=== PATIENT | female | born 1960 | race Caucasian/White ===

== ENCOUNTER 2017-05-27 16:36 | Inpatient (IN) | payer MEDICARE, OTHER ==
[~2017-05-27] VITALS: Ht 167.6 cm; Wt 78.0 kg
[2017-05-27 16:58] VITALS: BP 125/58; PULSE 92; RESP 16; TEMP 98.1; O2SAT 98
[2017-05-27] MEDS ORDERED: PIPERACIL-TAZO 3.375 GM PREMIX 50 ML IV ONE (19:00)
[2017-05-27] MEDS ORDERED: ONDANSETRON HCL 4 MG/2 ML VIAL IV PUSH ONE (19:00)
[2017-05-27] MEDS ORDERED: MORPHINE SULFATE 4 MG/ML INJ IV PUSH ONE (19:00)
[2017-05-27] MEDS ORDERED: VANCOMYCIN INJ 1,000 MG in SODIUM CHLOR 0.9% 250 ML INJ 250 ML IV ONE (19:00)
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
[2017-05-27] MEDS ORDERED: OXYC1TAB63 PO (19:21)
[2017-05-27] MEDS ORDERED: MINO100 PO (19:21)
[2017-05-27] MEDS ORDERED: REME15TA PO (19:21)
[2017-05-27] MEDS ORDERED: INSU1.2I SQ (19:21)
[2017-05-27] MEDS ORDERED: ATOR10TA15 PO (19:21)
[2017-05-27] MEDS ORDERED: SULF1TAB23 PO (19:21)
[2017-05-27] MEDS ORDERED: VIST50CA PO (19:21)
[2017-05-27] MEDS ORDERED: GABA800T PO (19:21)
[2017-05-27] MEDS ORDERED: HUMALOG SQ (19:21)
[2017-05-27] MEDS ORDERED: ATEN25TA PO (19:21)
[2017-05-27 19:22] VITALS: RESP 16; O2SAT 97
--- NOTE | 2017-05-27 19:23 | RADRPT ---
EXAM DATE/TIME: 05/27/2017 19:10 [facility] COMPARISON: No previous studies available for comparison. INDICATIONS : Left heel pain. Possible infection after recent foot surgery. MEDICAL HISTORY : Diabetes mellitus type II. SURGICAL HISTORY : Left foot, partial first digit amputation. ENCOUNTER: Initial ACUITY: 2 weeks PAIN SCORE: 8/10 LOCATION: Left foot. FINDINGS: There are no prior imaging studies. This fusion of the phalanges of the 1st digit. Medially, at the MTP joint, there is a bony fragment irregular margins which measures 6 mm in size, suggestive of a d isplaced fracture. There is irregularity of the cortex of the lateral metaphysis of the 2nd digit pr oximal phalanx without fracture lucency. The alignment of the osseous structures of the forefoot is maintained. Soft tissue discontinuities are seen about the calcaneus and about the plantar forefoot. No radiopaq ue foreign bodies seen. No focal bony destruction and no evidence of periosteal reaction. There is also moderate soft tissue swelling about the dorsal aspect of the forefoot. CONCLUSION: 1. Soft tissue swelling dorsal forefoot and irregularities of the cutaneous tissues adjacent to the c alcaneus and plantar forefoot. 2. Probable metaphyseal fracture of the 1st digit proximal phalanx. Pablo Chopra MD on May 27, 2017 at 19:19 Board Certified Radiologist. This report was verified electronically.
[2017-05-27 20:17] VITALS: BP 117/58; PULSE 88; RESP 20; O2SAT 95
[2017-05-27 20:32] LABS: AUTOMATED NEUTROPHIL # 5.1 TH/MM3 (1.8-7.7); BASOPHIL # 0.1 TH/MM3 (0-0.2); BASOPHIL % 0.9 % (0.0-2.0); EOSINOPHIL # 0.3 TH/MM3 (0-0.4); EOSINOPHIL % 2.6 % (0.0-4.0); HEMATOCRIT 38.8 % (35.0-46.0); HEMOGLOBIN 12.9 GM/DL (11.6-15.3); LYMPH % 41.6 % (9.0-44.0); LYMPHOCYTE # 4.5 TH/MM3 (1.0-4.8); MEAN CELL VOLUME 79.1 FL (80.0-100.0); MEAN CORPUSCULAR HEMOGLOBIN 26.4 PG (27.0-34.0); MEAN CORPUSCULAR HGB CONC 33.4 % (32.0-36.0); MEAN PLATELET VOLUME 8.2 FL (7.0-11.0); MONO % 7.4 % (0.0-8.0); MONOCYTE # 0.8 TH/MM3 (0-0.9); NEUT % 47.5 % (16.0-70.0); PLATELET COUNT 506 TH/MM3 (150-450); RED CELL DISTRIBUTION WIDTH 14.5 % (11.6-17.2); WHITE BLOOD COUNT 10.8 TH/MM3 (4.0-11.0)
[2017-05-27 20:37] LABS: PROTHROMBIN TIME - PATIENT 10.2 SEC (9.8-11.6)
[2017-05-27 20:49] LABS: ALBUMIN 3.6 GM/DL (3.4-5.0); AST (GOT) 13 U/L (15-37); BICARBONATE 25.7 MEQ/L (21.0-32.0); BLOOD UREA NITROGEN 27 MG/DL (7-18); CHLORIDE 100 MEQ/L (98-107); CREATININE 1.28 MG/DL (0.50-1.00); GLOMERULAR FILTRATION RATE 43 ML/MIN (>89); GLUCOSE,RANDOM 86 MG/DL (74-106); SODIUM (NA) 135 MEQ/L (136-145)
[2017-05-27 20:50] LABS: ALT (GPT) 16 U/L (10-53)
[2017-05-27 20:57] LABS: ALKALINE PHOSPHATASE 111 U/L (45-117); TOTAL BILIRUBIN ADULT 0.2 MG/DL (0.2-1.0); TOTAL PROTEIN 9.2 GM/DL (6.4-8.2)
[2017-05-27] MEDS ORDERED: MORPHINE SULFATE 2 MG/ML INJ IV PUSH PRN (21:45)
[2017-05-27] MEDS ORDERED: SODIUM CHLORIDE 0.9% FLUSH 10 ML FLUSH IV FLUSH PRN (21:45)
[2017-05-27] MEDS ORDERED: RESP: ALBUTEROL 2.5 MG/IPRATROPIUM 0.5 MG NEB (PRN) NEB (21:45)
[2017-05-27] MEDS ORDERED: DEXTROSE 50% IN WATER 50 ML VIAL(D50) IV PUSH PRN (21:45)
[2017-05-27] MEDS ORDERED: GLUCAGON 1 MG/ML VIAL OTHER PRN (21:45)
[2017-05-27] MEDS ORDERED: ONDANSETRON HCL 4 MG/2 ML VIAL IVP PRN (21:45)
[2017-05-27] MEDS ORDERED: ACETAMINOPHEN 325 MG TAB PO PRN (21:45)
[2017-05-27] MEDS ORDERED: NALOXONE HCL 0.4 MG/ML AMP IV PUSH PRN (21:45)
[2017-05-27] MEDS ORDERED: POTASSIUM CHLORIDE 20 MEQ CONTROLLED RELEASE TAB PO ONE (22:15)
--- NOTE | 2017-05-27 22:24 | HHI.HP ---
[facility] Tavo Sotomayor MD Admission Diagnosis diabetic left foot ulcer, cellulitis left foot Diagnoses: Travel History International Travel<30 Days: No Contact w/Intl Traveler <30 Da: No Traveled to Known Affected Are: No History of Present Illness 56-year-old female with past medical history significant for diabetes mellitus, hyperlipidemia, COPD and peripheral arterial disease presents to the emergency department for evaluation of worsening left heel and foot erythema and swelling. The patient was recently treated at [facility] where she was admitted from 05/20-05/23 and treated for osteomyelitis. She was seen by infectious disease who had her on vancomycin and ciprofloxacin and she was discharged on Bactrim and minocycline. The patient reports she has been compliant with her dressing changes and antibiotics. She reports that for the past 2 days she has noticed increased redness and swelling with foul drainage from her left heel. She states that she has had subjective chills for the past 2 days. She has associated diarrhea. Denies chest pain or shortness of breath. No nausea/vomiting. Of note the patient was originally treated in [place] where an I&D was performed however on 05/19 she left AGAINST MEDICAL ADVICE. Review of Systems Except as stated in HPI: all other systems reviewed are Neg Past Family Social History Past Medical History Peripheral arterial disease Diabetes mellitus Hypertension COPD Past Surgical History I&D of left heel Cholecystectomy Small bowel resection Bilateral lower extremity stent placement Allergies: Coded Allergies: lisinopril (Verified Allergy, Intermediate, Cough, 05/27/17) phenytoin (Verified Allergy, Unknown, 05/27/17) pt states unknown Physical Exam Vital Signs Vital Signs Date Time Temp Pulse Resp B/P (MAP) Pulse Ox O2 Delivery O2 Flow Rate FiO2 05/27/17 20:18 95 Room Air 05/27/17 20:17 88 20 117/58 (77) 95 Room Air 05/27/17 19:22 16 97 05/27/17 16:58 98.1 92 16 125/58 (80) 98 Physical Exam GENERAL: female lying in bed SKIN: 5 x 2 cm ulcer to the posterior left heel with surrounding swelling and erythema. Draining foul-smelling purulent drainage. HEAD: Atraumatic. Normocephalic. No temporal or scalp tenderness. EYES: Pupils equal round and reactive. Extraocular motions intact. No scleral icterus. No injection or drainage. ENT: Nose without bleeding, purulent drainage or septal hematoma. Throat without erythema, tonsillar hypertrophy or exudate. Uvula midline. Airway patent. NECK: Trachea midline. No JVD or lymphadenopathy. Supple, nontender, no meningeal signs. CARDIOVASCULAR: Regular rate and rhythm without murmurs, gallops, or rubs. RESPIRATORY: Clear to auscultation. Breath sounds equal bilaterally. No wheezes , rales, or rhonchi. GASTROINTESTINAL: Abdomen soft, non-tender, nondistended. No hepato-splenomegaly , or palpable masses. No guarding. MUSCULOSKELETAL: No calf tenderness. NEUROLOGICAL: Awake and alert. Cranial nerves II through XII intact. Motor and sensory grossly within normal limits. 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 Laboratory Laboratory Tests Test 05/27/17 19:10 05/27/17 20:10 White Blood Count 10.8 Red Blood Count 4.90 Hemoglobin 12.9 Hematocrit 38.8 Mean Corpuscular Volume 79.1 Mean Corpuscular Hemoglobin 26.4 Mean Corpuscular Hemoglobin Concent 33.4 Red Cell Distribution Width 14.5 Platelet Count 506 Mean Platelet Volume 8.2 Neutrophils (%) (Auto) 47.5 Lymphocytes (%) (Auto) 41.6 Monocytes (%) (Auto) 7.4 Eosinophils (%) (Auto) 2.6 Basophils (%) (Auto) 0.9 Neutrophils # (Auto) 5.1 Lymphocytes # (Auto) 4.5 Monocytes # (Auto) 0.8 Eosinophils # (Auto) 0.3 Basophils # (Auto) 0.1 CBC Comment DIFF FINAL Differential Comment Erythrocyte Sedimentation Rate 48 Prothrombin Time 10.2 Prothromb Time International Ratio 1.0 Activated Partial Thromboplast Time 24.0 Blood Urea Nitrogen 27 Creatinine 1.28 Random Glucose 86 Total Protein 9.2 Albumin 3.6 Calcium Level 9.0 Alkaline Phosphatase 111 Aspartate Amino Transf (AST/SGOT) 13 Alanine Aminotransferase (ALT/SGPT) 16 Total Bilirubin 0.2 Sodium Level 135 Potassium Level 3.3 Chloride Level 100 Carbon Dioxide Level 25.7 Anion Gap 9 Estimat Glomerular Filtration Rate 43 C-Reactive Protein 1.70 Lactic Acid Level 1.8 Date/Time Source Procedure Growth Status 05/27/17 19:30 Blood Peripheral Aerobic Blood Culture Pending Received 05/27/17 19:30 Blood Peripheral Anaerobic Blood Culture Pending Received 05/27/17 20:20 Wound Foot Gram Stain Pending Received 05/27/17 20:20 Wound Foot Wound Culture Pending Received Result Diagram: 05/27/17190905/27/171909 Caprini VTE Risk Assessment Caprini VTE Risk Assessment: No/Low Risk (score <= 1) Caprini Risk Assessment Model Point Value = 1 Point Value = 2 Point Value = 3 Point Value = 5 Age 41-60 Minor surgery BMI > 25 kg/m2 Swollen legs Varicose veins or History of unexplained or recurrent spontaneous Oral contraceptives or hormone replacement Sepsis (< 1 month) Serious lung disease, including pneumonia (< 1 month) Abnormal pulmonary function Acute myocardial infarction Congestive heart failure (< 1 month) History of inflammatory bowel disease Medical patient at bed rest Age 61-74 Arthroscopic surgery Major open surgery (> 45 min) Laparoscopic surgery (> 45 min) Malignancy Confined to bed (> 72 hours) Immobilizing plaster cast Central venous access Age >= 75 History of VTE Family history of VTE Factor V Leiden Prothrombin [id number] Lupus anticoagulant Anticardiolipin antibodies Elevated serum homocysteine Heparin-induced thrombocytopenia Other congenital or acquired thrombophilia Stroke (< 1 month) Elective arthroplasty Hip, pelvis, or leg fracture Acute spinal cord injury (< 1 month) Prophylaxis Regimen Total Risk Factor Score Risk Level Prophylaxis Regimen 0-1 Low Early ambulation 2 Moderate Order ONE of the following: *Sequential Compression Device (SCD) *Heparin 5000 units SQ BID 3-4 Higher Order ONE of the following medications: *Heparin 5000 units SQ TID *Enoxaparin/Lovenox 40 mg SQ daily (WT < 150 kg, CrCl > 30 mL/min) *Enoxaparin/Lovenox 30 mg SQ daily (WT < 150 kg, CrCl > 10-29 mL/min) *Enoxaparin/Lovenox 30 mg SQ BID (WT < 150 kg, CrCl > 30 mL/min) AND/OR *Sequential Compression Device (SCD) 5 or more Highest Order ONE of the following medications: *Heparin 5000 units SQ TID (Preferred with Epidurals) *Enoxaparin/Lovenox 40 mg SQ daily (WT < 150 kg, CrCl > 30 mL/min) *Enoxaparin/Lovenox 30 mg SQ daily (WT < 150 kg, CrCl > 10-29 mL/min) *Enoxaparin/Lovenox 30 mg SQ BID (WT < 150 kg, CrCl > 30 mL/min) AND *Sequential Compression Device (SCD) Assessment and Plan Assessment and Plan Assessment/plan: 1. Osteomyelitis Patient with known diagnosis of osteomyelitis, recently treated at [facility], discharged with Bactrim and minocycline Clinically worsened despite compliance with antibiotics ESR elevated Foot x-ray shows soft tissue swelling and irregularities of the cutaneous tissue adjacent to the calcaneus and plantar forefoot with a probable metaphyseal fracture of the first digit of the proximal phalanx Vancomycin/Zosyn Wound culture pending Blood cultures pending Infectious disease consulted, appreciate recommendations Podiatry consulted, appreciate recommendations 2. Diabetes mellitus Holding home insulin as patient nothing by mouth Sliding scale insulin Monitor blood glucose 3. COPD/hyperlipidemia/hypertension DuoNeb's Continue home statin Continue home atenolol FEN NPO Electrolytes: Status post by mouth potassium, repeat BMP in am Heparin NS at 100 cc/hr Lanie Adorno MD May 27, 2017 22:24
[2017-05-27] MEDS ORDERED: Vancomycin Consult Pharmacy 1 EA OTHER SCH (22:30)
[2017-05-27] MEDS: HEPARIN SODIUM - SQ 10,000 UNITS/ML VIAL SQ SCH (23:01)
[2017-05-27] MEDS: SODIUM CHLOR 0.9% 1000 ML INJ 1,000 ML IV SCH (23:02)
[2017-05-27 23:03] VITALS: BP 143/69; PULSE 86; RESP 16; TEMP 97; O2SAT 95
[2017-05-28 00:41] VITALS: BP 108/56; PULSE 89; RESP 16; TEMP 98.5; O2SAT 88
[2017-05-28] MEDS: PIPERACIL-TAZO 3.375 GM PREMIX 50 ML IV SCH ×2 (02:08→08:57)
[2017-05-28 04:39] VITALS: BP 121/60; PULSE 82; RESP 17; TEMP 98; O2SAT 92
[2017-05-28] MEDS: HEPARIN SODIUM - SQ 10,000 UNITS/ML VIAL SQ SCH (06:18)
[2017-05-28] MEDS ORDERED: INSULIN ASPART SUPPLEMENTAL SCALE SQ SCH (08:00)
[2017-05-28 08:17] VITALS: BP 120/58; PULSE 83; RESP 20; TEMP 98.4; O2SAT 92
[2017-05-28] MEDS: SODIUM CHLOR 0.9% 1000 ML INJ 1,000 ML IV SCH (08:57)
[2017-05-28] MEDS ORDERED: MINOCYCLINE HCL 100 MG CAP PO SCH (09:00)
[2017-05-28] MEDS ORDERED: INSULIN GLARGINE SQ SCH (09:00)
[2017-05-28] MEDS ORDERED: oxyCODONE/ACETAMINOPHEN 10 MG/325 MG TAB PO PRN (09:00)
[2017-05-28] MEDS ORDERED: INSULIN GLARGINE 24 UNIT SQ SCH (09:00)
[2017-05-28] MEDS ORDERED: oxyCODONE/ACETAMINOPHEN 5 MG/325 MG TAB PO PRN (09:00)
[2017-05-28] MEDS ORDERED: SULFAMETHOXAZOLE-TRIMETHOPRIM DS 800-160 MG TAB PO SCH (09:00)
[2017-05-28] MEDS ORDERED: SODIUM CHLORIDE 0.9% FLUSH 10 ML FLUSH IV FLUSH SCH (09:00)
[2017-05-28] MEDS ORDERED: GABAPENTIN 300 MG CAP PO SCH (09:00)
[2017-05-28] MEDS ORDERED: ATENOLOL 25 MG TAB PO SCH (09:00)
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
--- NOTE | 2017-05-28 13:55 | PD.AMA ---
Against Medical Advice Note AMA Statement Patient Radha Palma has decided to leave the hospital against medical advice. This patient has the capacity to refuse care and understands the risks of leaving, including permanent disability and/or , and has had an opportunity to ask questions about her condition. The patient has been informed that she may return for care at any time, and follow up has been arranged/ advised. Bhavesh Strong MD May 28, 2017 13:55
[2017-05-28] MEDS ORDERED: VANCOMYCIN INJ 1,250 MG in SODIUM CHLOR 0.9% 250 ML INJ 250 ML IV SCH (18:00)
[2017-05-28] MEDS ORDERED: ATORVASTATIN 10 MG TAB PO SCH (21:00)
[2017-05-28] MEDS ORDERED: MIRTAZAPINE 15 MG TAB PO SCH (21:00)
[2017-05-30] MEDS ORDERED: PHARMACY ORDERED LAB ONE (17:45)
== END 2017-05-28 12:24 | disposition left against medical advice (07) | DRG 540 ==
LOC: NEPC 16:36 → NEDA 21:22 → NEPFCDU 22:24 → OBSVTOIN 05-28 00:07
PROVIDERS: ADMIT Internal Medicine; ATTEND Internal Medicine
PROC: 02HV33Z Insertion of Infusion Device into Superior Vena Cava, Percutaneous Approach (ICD-10-PCS; principal; 2017-05-27)
DX: M86.9 Osteomyelitis, unspecified (principal); L03.116 Cellulitis of left lower limb; E11.51 Type 2 diabetes mellitus with diabetic peripheral angiopathy without gangrene; E11.621 Type 2 diabetes mellitus with foot ulcer; L97.429 Non-pressure chronic ulcer of left heel and midfoot with unspecified severity; L97.529 Non-pressure chronic ulcer of other part of left foot with unspecified severity; J44.9 Chronic obstructive pulmonary disease, unspecified; E78.5 Hyperlipidemia, unspecified; R19.7 Diarrhea, unspecified; B95.62 Methicillin resistant Staphylococcus aureus infection as the cause of diseases classified elsewhere; B95.2 Enterococcus as the cause of diseases classified elsewhere; Z16.21 Resistance to vancomycin; S92.412A Displaced fracture of proximal phalanx of left great toe, initial encounter for closed fracture; I10 Essential (primary) hypertension; Z72.0 Tobacco use; Z79.4 Long term (current) use of insulin; Z89.412 Acquired absence of left great toe; Z18.10 Retained metal fragments, unspecified
CPT/HCPCS: 73630; 74018; 76937; 80053; 82948; 83605; 85025; 85610; 85652; 85730; 86140; 86403; 87040; 87070; 87077; 87186; 87205; 96374; 96375; G0378; J1644; J2270; J2405; J2543; J3370; J7030; J7050

== ENCOUNTER 2017-08-03 18:18 | Emergency (ER) | payer MEDICARE, OTHER ==
[~2017-08-03] VITALS: Ht 167.6 cm; Wt 77.0 kg
[~2017-08-03 18:18] MED LIST: ATEN25TA PO; ATOR10TA15 PO; GABA800T PO; HUMALOG SQ; INSU1.2I SQ; MINO100 PO; OXYC1TAB63 PO; REME15TA PO; SULF1TAB23 PO; VIST50CA PO
[2017-08-03 18:44] VITALS: BP 132/68; PULSE 90; RESP 18; TEMP 98; O2SAT 98
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
--- NOTE | 2017-08-03 21:08 | RADRPT ---
EXAM DATE/TIME: 08/03/2017 20:18 [facility] COMPARISON: No previous studies available for comparison. INDICATIONS : Left heel pain and decreased range of motion after rolling foot today. MEDICAL HISTORY : Diabetes mellitus type II. SURGICAL HISTORY : Left foot, partial first digit amputation ENCOUNTER: Initial ACUITY: 1 day PAIN SCORE: 6/10 LOCATION: Left heel FINDINGS: There has been previous great toe distal phalangeal amputation. There are arthritic changes elsewhere in the toes. In the hindfoot, plantar heel spur is identified. No acute traumatic findings. CONCLUSION: No acute bony injury Marck Caraballo MD on August 03, 2017 at 21:04 Board Certified Radiologist. This report was verified electronically.
[2017-08-03] MEDS ORDERED: DICL75TA PO (21:15)
== END 2017-08-03 22:25 | disposition home or self-care (01) ==
LOC: NEPD 18:18
DX: S93.602A Unspecified sprain of left foot, initial encounter (principal); F17.200 Nicotine dependence, unspecified, uncomplicated; X58.XXXA Exposure to other specified factors, initial encounter; E11.621 Type 2 diabetes mellitus with foot ulcer; L97.429 Non-pressure chronic ulcer of left heel and midfoot with unspecified severity; Z79.4 Long term (current) use of insulin
CPT/HCPCS: 73630; 99283; E0113

== ENCOUNTER 2017-10-10 07:56 | Inpatient (IN) ==
--- NOTE | 2017-10-10 08:25 | ED ---
HPI General Chief Complaint: Wound/Laceration Stated Complaint: Left foot complaint Time Seen by Provider: 10/10/17 08:09 Source: patient Mode of arrival: ambulatory Limitations: no limitations History of Present Illness HPI narrative: History is quite involved, but patient apparently was at [facility] where she had an amputation performed by Dr. Jason Jade, she was discharged from [facility]. Upon her trying to make a follow-up appointment she was told by the office of Dr. Jason Jade that her insurance is not accepted. This was over 3 weeks ago, the patient just kept the wound area wrapped, however when she started to notice drainage she made a follow-up appointment with her primary care Dr. Landin on she was told to come to the ER immediately. The patient presents on Thursday morning for care, although she was advised to go to the hospital that performed the procedure the patient opted to come to [facility] because it was closer Past medical history significant for amputated great toe of left foot partially , COPD, diabetes, high cholesterol, history of bowel resection, Onset (ago): week(s) Location: other (Left toe amputation) Patient tetanus UTD: Yes Associated symptoms: pain Treatments prior to arrival: bandage Related Data Home Medications Medication Instructions Recorded Confirmed atenolol 25 mg PO DAILY 10/10/17 10/10/17 atorvastatin 10 mg PO DAILY 10/10/17 10/10/17 duloxetine [Cymbalta] 20 mg PO BID 10/10/17 10/10/17 hydroxyzine pamoate 150 mg PO HS 10/10/17 10/10/17 insulin glargine [Touyumiko SoloStar 35 unit SUB-Q BID 10/10/17 10/10/17 U-300 Insulin] insulin lispro [Humalog U-100 1 sliding scale dose SUB-Q UD 10/10/17 10/10/17 Insulin] insulin lispro [Humalog U-100 10 unit SUB-Q TID 10/10/17 10/10/17 Insulin] oxycodone-acetaminophen [Percocet] 1 tab PO Q4-6H PRN 10/10/17 10/10/17 pregabalin [Lyrica] 100 mg PO BID 10/10/17 10/10/17 Allergies Allergy/AdvReac Type Severity Reaction Status Date / Time lisinopril Allergy Intermediate Cough Verified 10/10/17 08:28 phenytoin Allergy Unknown Hives Verified 10/10/17 08:28 Review of Systems Except as stated in HPI: all other systems reviewed are negative PMFSH History History Provided By: Patient Medical History Medical History Depression (Acute) Amputated great toe of left foot (Acute) COPD (chronic obstructive pulmonary disease) (Chronic) Diabetes (Chronic) High cholesterol (Acute) DVT (deep venous thrombosis) (Acute) Hepatitis (Acute) 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 SKIN: Warm and dry. HEAD: Atraumatic. Normocephalic. EYES: Pupils equal and round. No scleral icterus. No injection or drainage. ENT: No nasal bleeding or discharge. Mucous membranes pink and moist. NECK: Trachea midline. No JVD. CARDIOVASCULAR: Regular rate and rhythm. no rubs or gallops RESPIRATORY: No accessory muscle use. Clear to auscultation. Breath sounds equal bilaterally. GASTROINTESTINAL: Abdomen soft, non-tender, nondistended. No rebound or guarding MUSCULOSKELETAL: Extremities without clubbing, cyanosis, or edema. No obvious deformities. ... Left plantar surface of the foot has 2 chronic ulcerations one at the heel one at the forefoot chronic and not infected however fairly deep but not to the level of the bone or tendons. 3rd digit partial amputation of dip with secondary drainage consistent with infection as well as extending cellulitis onto the 4th digit NEUROLOGICAL: Awake and alert. No obvious cranial nerve deficits. Motor grossly within normal limits. Five out of 5 muscle strength in the arms and legs. 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 PSYCHIATRIC: Appropriate mood and affect; insight and judgment normal. Course Initial Documented Vital Signs Temperature 97.3 F L 10/10/17 08:00 Pulse Rate 115 H 10/10/17 08:00 Respiratory Rate 16 10/10/17 08:00 Blood Pressure 160/73 H 10/10/17 08:00 Pulse Oximetry 100 10/10/17 08:00 Last Documented Vital Signs Temperature 97.6 F 10/14/17 00:00 Pulse Rate 77 10/14/17 00:00 Respiratory Rate 18 10/14/17 00:00 Blood Pressure 116/56 L 10/14/17 00:00 Pulse Oximetry 96 10/14/17 00:00 Medical Decision Making Lab Data Result diagrams: 10/12/17 04:00 10/12/17 04:00 Lab Results 10/10/17 10/10/17 10/10/17 Range/Units 08:50 08:50 08:50 WBC 6.8 (4.0-11.0) th/mm3 RBC 4.79 (4.00-5.30) mil/mm3 Hgb 12.6 (11.6-15.3) gm/dL Hct 38.4 (35.0-46.0) % MCV 80.1 (80.0-100.0) fL MCH 26.3 L (27.0-34.0) pg MCHC 32.8 (32.0-36.0) % RDW 15.0 (11.6-17.2) % Plt Count 396 (150-450) th/mm3 MPV 9.1 (7.0-11.0) fL Neut % (Auto) 74.8 H (16.0-70.0) % Lymph % (Auto) 17.1 (9.0-44.0) % [place] % (Auto) 6.1 (0.0-8.0) % Eos % (Auto) 0.7 (0.0-4.0) % Baso % (Auto) 1.3 (0.0-2.0) % Neut # (Auto) 5.1 (1.8-7.7) th/mm3 Lymph # (Auto) 1.2 (1.0-4.8) th/mm3 [place] # (Auto) 0.4 (0.0-0.9) th/mm3 Eos # (Auto) 0.1 (0.0-0.4) th/mm3 Baso # (Auto) 0.1 (0.0-0.2) th/mm3 WBC Differential . Differential Comment Auto diff final ESR (0-30) mm/hr Puncture Site Patient Temperature O2 Saturation (90-100) % ABG pH (7.380-7.420) ABG pCO2 (38-42) mmHg ABG pO2 (61-120) mmHg ABG HCO3 (22-26) mmol/L ABG O2 Content (12.0-20.0) Vol % ABG Base Excess (-2-2) mmol/L ABG Methemoglobin (0-2) % Oscar Test Hemoglobin (12.0-16.0) G/DL Carboxyhemoglobin (0-4) % Inspired O2 % Critical Value Sodium 122 L* (136-145) meq/L Potassium 3.7 (3.5-5.1) meq/L Chloride 83 L (98-107) meq/L Carbon Dioxide 24.9 (21.0-32.0) meq/L Anion Gap 14 (5-15) meq/L BUN 12 (7-18) mg/dL Creatinine 1.29 H (0.50-1.00) mg/dL Estimated GFR 43 L (>89) mL/min POC Glucose (68-110) mg/dl Random Glucose 714 H* (74-106) mg/dL Lactic Acid 1.7 (0.4-2.0) mmol/L Calcium 9.4 (8.5-10.1) mg/dL Phosphorus (2.5-4.9) mg/dL Magnesium (1.5-2.5) mg/dL Total Bilirubin Direct Bilirubin Indirect Bilirubin AST ALT Alkaline Phosphatase Total Protein Albumin Lipase Beta-Hydroxybutyric Acd (0.00-0.39) mmol/L Urine Color (Yellw/Straw) Urine Clarity (Clear) Urine pH (5.0-8.5) Ur Specific [place] (1.002-1.035) Urine Protein (Neg-Trace) mg/dL Urine Glucose (UA) (Negative) mg/dL Urine Ketones (Negative) mg/dL Urine Occult Blood (Negative) Urine Nitrate (Negative) Urine Bilirubin (Negative) Urine Urobilinogen (Less than 2) mg/dL Ur Leukocyte Esterase (Negative) Urine RBC (0-3) /hpf Urine WBC (0-5) /hpf Ur Squamous Epith Cells (0-5) /hpf Urine Mucus (Occasional) /lpf Micro UA Comment Urine Culture Comments Vancomycin Trough (5.0-10.0) mcg/mL Urine Opiates Screen (Neg) Ur Barbiturates Screen (Neg) Ur Amphetamines Screen (Neg) U Benzodiazepines Scrn (Neg) Urine Cocaine Screen (Neg) U Cannabinoids Screen (Neg) Hepatitis A IgM Ab (Nonreactive) Hep Bs Antigen (Nonreactive) Hep B Core IgM Ab (Nonreactive) Hep C IgG Ab (Nonreactive) 10/10/17 10/10/17 10/10/17 Range/Units 08:50 08:50 08:50 WBC (4.0-11.0) th/mm3 RBC (4.00-5.30) mil/mm3 Hgb (11.6-15.3) gm/dL Hct (35.0-46.0) % MCV (80.0-100.0) fL MCH (27.0-34.0) pg MCHC (32.0-36.0) % RDW (11.6-17.2) % Plt Count (150-450) th/mm3 MPV (7.0-11.0) fL Neut % (Auto) (16.0-70.0) % Lymph % (Auto) (9.0-44.0) % [place] % (Auto) (0.0-8.0) % Eos % (Auto) (0.0-4.0) % Baso % (Auto) (0.0-2.0) % Neut # (Auto) (1.8-7.7) th/mm3 Lymph # (Auto) (1.0-4.8) th/mm3 [place] # (Auto) (0.0-0.9) th/mm3 Eos # (Auto) (0.0-0.4) th/mm3 Baso # (Auto) (0.0-0.2) th/mm3 WBC Differential Differential Comment ESR 16 (0-30) mm/hr Puncture Site Patient Temperature O2 Saturation (90-100) % ABG pH (7.380-7.420) ABG pCO2 (38-42) mmHg ABG pO2 (61-120) mmHg ABG HCO3 (22-26) mmol/L ABG O2 Content (12.0-20.0) Vol % ABG Base Excess (-2-2) mmol/L ABG Methemoglobin (0-2) % Oscar Test Hemoglobin (12.0-16.0) G/DL Carboxyhemoglobin (0-4) % Inspired O2 % Critical Value Sodium (136-145) meq/L Potassium (3.5-5.1) meq/L Chloride (98-107) meq/L Carbon Dioxide (21.0-32.0) meq/L Anion Gap (5-15) meq/L BUN (7-18) mg/dL Creatinine (0.50-1.00) mg/dL Estimated GFR (>89) mL/min POC Glucose (68-110) mg/dl Random Glucose (74-106) mg/dL Lactic Acid (0.4-2.0) mmol/L Calcium (8.5-10.1) mg/dL Phosphorus (2.5-4.9) mg/dL Magnesium (1.5-2.5) mg/dL Total Bilirubin Cancelled Direct Bilirubin Cancelled Indirect Bilirubin Cancelled AST Cancelled ALT Cancelled Alkaline Phosphatase Cancelled Total Protein Cancelled Albumin Cancelled Lipase Cancelled Beta-Hydroxybutyric Acd (0.00-0.39) mmol/L Urine Color (Yellw/Straw) Urine Clarity (Clear) Urine pH (5.0-8.5) Ur Specific [place] (1.002-1.035) Urine Protein (Neg-Trace) mg/dL Urine Glucose (UA) (Negative) mg/dL Urine Ketones (Negative) mg/dL Urine Occult Blood (Negative) Urine Nitrate (Negative) Urine Bilirubin (Negative) Urine Urobilinogen (Less than 2) mg/dL Ur Leukocyte Esterase (Negative) Urine RBC (0-3) /hpf Urine WBC (0-5) /hpf Ur Squamous Epith Cells (0-5) /hpf Urine Mucus (Occasional) /lpf Micro UA Comment Urine Culture Comments Vancomycin Trough (5.0-10.0) mcg/mL Urine Opiates Screen (Neg) Ur Barbiturates Screen (Neg) Ur Amphetamines Screen (Neg) U Benzodiazepines Scrn (Neg) Urine Cocaine Screen (Neg) U Cannabinoids Screen (Neg) Hepatitis A IgM Ab (Nonreactive) Hep Bs Antigen (Nonreactive) Hep B Core IgM Ab (Nonreactive) Hep C IgG Ab (Nonreactive) 10/10/17 10/10/17 10/10/17 Range/Units 08:50 12:03 12:49 WBC (4.0-11.0) th/mm3 RBC (4.00-5.30) mil/mm3 Hgb (11.6-15.3) gm/dL Hct (35.0-46.0) % MCV (80.0-100.0) fL MCH (27.0-34.0) pg MCHC (32.0-36.0) % RDW (11.6-17.2) % Plt Count (150-450) th/mm3 MPV (7.0-11.0) fL Neut % (Auto) (16.0-70.0) % Lymph % (Auto) (9.0-44.0) % [place] % (Auto) (0.0-8.0) % Eos % (Auto) (0.0-4.0) % Baso % (Auto) (0.0-2.0) % Neut # (Auto) (1.8-7.7) th/mm3 Lymph # (Auto) (1.0-4.8) th/mm3 [place] # (Auto) (0.0-0.9) th/mm3 Eos # (Auto) (0.0-0.4) th/mm3 Baso # (Auto) (0.0-0.2) th/mm3 WBC Differential Differential Comment ESR (0-30) mm/hr Puncture Site Right radial Patient Temperature 98.6 O2 Saturation 92 (90-100) % ABG pH 7.43 H (7.380-7.420) ABG pCO2 42 (38-42) mmHg ABG pO2 78 (61-120) mmHg ABG HCO3 28 H (22-26) mmol/L ABG O2 Content 15.1 (12.0-20.0) Vol % ABG Base Excess 3.8 H (-2-2) mmol/L ABG Methemoglobin 0.4 (0-2) % Oscar Test Present Hemoglobin 11.6 L (12.0-16.0) G/DL Carboxyhemoglobin 3.7 (0-4) % Inspired O2 21 % Critical Value No Sodium (136-145) meq/L Potassium (3.5-5.1) meq/L Chloride (98-107) meq/L Carbon Dioxide (21.0-32.0) meq/L Anion Gap (5-15) meq/L BUN (7-18) mg/dL Creatinine (0.50-1.00) mg/dL Estimated GFR (>89) mL/min POC Glucose 266 H (68-110) mg/dl Random Glucose (74-106) mg/dL Lactic Acid (0.4-2.0) mmol/L Calcium (8.5-10.1) mg/dL Phosphorus 3.7 (2.5-4.9) mg/dL Magnesium 1.9 (1.5-2.5) mg/dL Total Bilirubin 0.6 Direct Bilirubin 0.2 Indirect Bilirubin 0.4 AST 14 L ALT 13 Alkaline Phosphatase 125 H Total Protein 8.1 Albumin 3.0 L Lipase 173 Beta-Hydroxybutyric Acd 2.30 H (0.00-0.39) mmol/L Urine Color (Yellw/Straw) Urine Clarity (Clear) Urine pH (5.0-8.5) Ur Specific [place] (1.002-1.035) Urine Protein (Neg-Trace) mg/dL Urine Glucose (UA) (Negative) mg/dL Urine Ketones (Negative) mg/dL Urine Occult Blood (Negative) Urine Nitrate (Negative) Urine Bilirubin (Negative) Urine Urobilinogen (Less than 2) mg/dL Ur Leukocyte Esterase (Negative) Urine RBC (0-3) /hpf Urine WBC (0-5) /hpf Ur Squamous Epith Cells (0-5) /hpf Urine Mucus (Occasional) /lpf Micro UA Comment Urine Culture Comments Vancomycin Trough (5.0-10.0) mcg/mL Urine Opiates Screen (Neg) Ur Barbiturates Screen (Neg) Ur Amphetamines Screen (Neg) U Benzodiazepines Scrn (Neg) Urine Cocaine Screen (Neg) U Cannabinoids Screen (Neg) Hepatitis A IgM Ab (Nonreactive) Hep Bs Antigen (Nonreactive) Hep B Core IgM Ab (Nonreactive) Hep C IgG Ab (Nonreactive) 10/10/17 10/10/17 10/10/17 Range/Units 13:08 13:08 15:02 WBC (4.0-11.0) th/mm3 RBC (4.00-5.30) mil/mm3 Hgb (11.6-15.3) gm/dL Hct (35.0-46.0) % MCV (80.0-100.0) fL MCH (27.0-34.0) pg MCHC (32.0-36.0) % RDW (11.6-17.2) % Plt Count (150-450) th/mm3 MPV (7.0-11.0) fL Neut % (Auto) (16.0-70.0) % Lymph % (Auto) (9.0-44.0) % [place] % (Auto) (0.0-8.0) % Eos % (Auto) (0.0-4.0) % Baso % (Auto) (0.0-2.0) % Neut # (Auto) (1.8-7.7) th/mm3 Lymph # (Auto) (1.0-4.8) th/mm3 [place] # (Auto) (0.0-0.9) th/mm3 Eos # (Auto) (0.0-0.4) th/mm3 Baso # (Auto) (0.0-0.2) th/mm3 WBC Differential Differential Comment ESR (0-30) mm/hr Puncture Site Patient Temperature O2 Saturation (90-100) % ABG pH (7.380-7.420) ABG pCO2 (38-42) mmHg ABG pO2 (61-120) mmHg ABG HCO3 (22-26) mmol/L ABG O2 Content (12.0-20.0) Vol % ABG Base Excess (-2-2) mmol/L ABG Methemoglobin (0-2) % Oscar Test Hemoglobin (12.0-16.0) G/DL Carboxyhemoglobin (0-4) % Inspired O2 % Critical Value Sodium (136-145) meq/L Potassium (3.5-5.1) meq/L Chloride (98-107) meq/L Carbon Dioxide (21.0-32.0) meq/L Anion Gap (5-15) meq/L BUN (7-18) mg/dL Creatinine (0.50-1.00) mg/dL Estimated GFR (>89) mL/min POC Glucose 198 H (68-110) mg/dl Random Glucose (74-106) mg/dL Lactic Acid (0.4-2.0) mmol/L Calcium (8.5-10.1) mg/dL Phosphorus (2.5-4.9) mg/dL Magnesium (1.5-2.5) mg/dL Total Bilirubin Direct Bilirubin Indirect Bilirubin AST ALT Alkaline Phosphatase Total Protein Albumin Lipase Beta-Hydroxybutyric Acd (0.00-0.39) mmol/L Urine Color Straw (Yellw/Straw) Urine Clarity Clear (Clear) Urine pH 6.0 (5.0-8.5) Ur Specific [place] 1.028 (1.002-1.035) Urine Protein Negative (Neg-Trace) mg/dL Urine Glucose (UA) 500 or greater (Negative) mg/dL Urine Ketones 20 (Negative) mg/dL Urine Occult Blood Negative (Negative) Urine Nitrate Negative (Negative) Urine Bilirubin Negative (Negative) Urine Urobilinogen Less than 2 (Less than 2) mg/dL Ur Leukocyte Esterase Negative (Negative) Urine RBC Less than 1 (0-3) /hpf Urine WBC Less than 1 (0-5) /hpf Ur Squamous Epith Cells 2 (0-5) /hpf Urine Mucus Few H (Occasional) /lpf Micro UA Comment Culture not ind Urine Culture Comments Culture not ind Vancomycin Trough (5.0-10.0) mcg/mL Urine Opiates Screen Neg (Neg) Ur Barbiturates Screen Neg (Neg) Ur Amphetamines Screen Neg (Neg) U Benzodiazepines Scrn Neg (Neg) Urine Cocaine Screen Pos H (Neg) U Cannabinoids Screen Neg (Neg) Hepatitis A IgM Ab (Nonreactive) Hep Bs Antigen (Nonreactive) Hep B Core IgM Ab (Nonreactive) Hep C IgG Ab (Nonreactive) 10/10/17 10/10/17 10/10/17 Range/Units 17:01 18:50 20:52 WBC (4.0-11.0) th/mm3 RBC (4.00-5.30) mil/mm3 Hgb (11.6-15.3) gm/dL Hct (35.0-46.0) % MCV (80.0-100.0) fL MCH (27.0-34.0) pg MCHC (32.0-36.0) % RDW (11.6-17.2) % Plt Count (150-450) th/mm3 MPV (7.0-11.0) fL Neut % (Auto) (16.0-70.0) % Lymph % (Auto) (9.0-44.0) % [place] % (Auto) (0.0-8.0) % Eos % (Auto) (0.0-4.0) % Baso % (Auto) (0.0-2.0) % Neut # (Auto) (1.8-7.7) th/mm3 Lymph # (Auto) (1.0-4.8) th/mm3 [place] # (Auto) (0.0-0.9) th/mm3 Eos # (Auto) (0.0-0.4) th/mm3 Baso # (Auto) (0.0-0.2) th/mm3 WBC Differential Differential Comment ESR (0-30) mm/hr Puncture Site Patient Temperature O2 Saturation (90-100) % ABG pH (7.380-7.420) ABG pCO2 (38-42) mmHg ABG pO2 (61-120) mmHg ABG HCO3 (22-26) mmol/L ABG O2 Content (12.0-20.0) Vol % ABG Base Excess (-2-2) mmol/L ABG Methemoglobin (0-2) % Oscar Test Hemoglobin (12.0-16.0) G/DL Carboxyhemoglobin (0-4) % Inspired O2 % Critical Value Sodium 139 D (136-145) meq/L Potassium 3.3 L (3.5-5.1) meq/L Chloride 103 D (98-107) meq/L Carbon Dioxide 26.2 (21.0-32.0) meq/L Anion Gap 10 (5-15) meq/L BUN 7 (7-18) mg/dL Creatinine 0.90 (0.50-1.00) mg/dL Estimated GFR 65 L (>89) mL/min POC Glucose 182 H (68-110) mg/dl Random Glucose 246 H D (74-106) mg/dL Lactic Acid (0.4-2.0) mmol/L Calcium 7.9 L D (8.5-10.1) mg/dL Phosphorus (2.5-4.9) mg/dL Magnesium (1.5-2.5) mg/dL Total Bilirubin Direct Bilirubin Indirect Bilirubin AST ALT Alkaline Phosphatase Total Protein Albumin Lipase Beta-Hydroxybutyric Acd (0.00-0.39) mmol/L Urine Color (Yellw/Straw) Urine Clarity (Clear) Urine pH (5.0-8.5) Ur Specific [place] (1.002-1.035) Urine Protein (Neg-Trace) mg/dL Urine Glucose (UA) (Negative) mg/dL Urine Ketones (Negative) mg/dL Urine Occult Blood (Negative) Urine Nitrate (Negative) Urine Bilirubin (Negative) Urine Urobilinogen (Less than 2) mg/dL Ur Leukocyte Esterase (Negative) Urine RBC (0-3) /hpf Urine WBC (0-5) /hpf Ur Squamous Epith Cells (0-5) /hpf Urine Mucus (Occasional) /lpf Micro UA Comment Urine Culture Comments Vancomycin Trough (5.0-10.0) mcg/mL Urine Opiates Screen (Neg) Ur Barbiturates Screen (Neg) Ur Amphetamines Screen (Neg) U Benzodiazepines Scrn (Neg) Urine Cocaine Screen (Neg) U Cannabinoids Screen (Neg) Hepatitis A IgM Ab Nonreactive (Nonreactive) Hep Bs Antigen Nonreactive (Nonreactive) Hep B Core IgM Ab Nonreactive (Nonreactive) Hep C IgG Ab Nonreactive (Nonreactive) 10/10/17 10/10/17 10/11/17 Range/Units 21:46 23:00 03:19 WBC (4.0-11.0) th/mm3 RBC (4.00-5.30) mil/mm3 Hgb (11.6-15.3) gm/dL Hct (35.0-46.0) % MCV (80.0-100.0) fL MCH (27.0-34.0) pg MCHC (32.0-36.0) % RDW (11.6-17.2) % Plt Count (150-450) th/mm3 MPV (7.0-11.0) fL Neut % (Auto) (16.0-70.0) % Lymph % (Auto) (9.0-44.0) % [place] % (Auto) (0.0-8.0) % Eos % (Auto) (0.0-4.0) % Baso % (Auto) (0.0-2.0) % Neut # (Auto) (1.8-7.7) th/mm3 Lymph # (Auto) (1.0-4.8) th/mm3 [place] # (Auto) (0.0-0.9) th/mm3 Eos # (Auto) (0.0-0.4) th/mm3 Baso # (Auto) (0.0-0.2) th/mm3 WBC Differential Differential Comment ESR (0-30) mm/hr Puncture Site Patient Temperature O2 Saturation (90-100) % ABG pH (7.380-7.420) ABG pCO2 (38-42) mmHg ABG pO2 (61-120) mmHg ABG HCO3 (22-26) mmol/L ABG O2 Content (12.0-20.0) Vol % ABG Base Excess (-2-2) mmol/L ABG Methemoglobin (0-2) % Oscar Test Hemoglobin (12.0-16.0) G/DL Carboxyhemoglobin (0-4) % Inspired O2 % Critical Value Sodium 138 (136-145) meq/L Potassium 3.3 L (3.5-5.1) meq/L Chloride 102 (98-107) meq/L Carbon Dioxide 27.2 (21.0-32.0) meq/L Anion Gap 9 (5-15) meq/L BUN 7 (7-18) mg/dL Creatinine 0.86 (0.50-1.00) mg/dL Estimated GFR 68 L (>89) mL/min POC Glucose 307 H 280 H (68-110) mg/dl Random Glucose 273 H (74-106) mg/dL Lactic Acid (0.4-2.0) mmol/L Calcium 8.1 L (8.5-10.1) mg/dL Phosphorus (2.5-4.9) mg/dL Magnesium (1.5-2.5) mg/dL Total Bilirubin Direct Bilirubin Indirect Bilirubin AST ALT Alkaline Phosphatase Total Protein Albumin Lipase Beta-Hydroxybutyric Acd (0.00-0.39) mmol/L Urine Color (Yellw/Straw) Urine Clarity (Clear) Urine pH (5.0-8.5) Ur Specific [place] (1.002-1.035) Urine Protein (Neg-Trace) mg/dL Urine Glucose (UA) (Negative) mg/dL Urine Ketones (Negative) mg/dL Urine Occult Blood (Negative) Urine Nitrate (Negative) Urine Bilirubin (Negative) Urine Urobilinogen (Less than 2) mg/dL Ur Leukocyte Esterase (Negative) Urine RBC (0-3) /hpf Urine WBC (0-5) /hpf Ur Squamous Epith Cells (0-5) /hpf Urine Mucus (Occasional) /lpf Micro UA Comment Urine Culture Comments Vancomycin Trough (5.0-10.0) mcg/mL Urine Opiates Screen (Neg) Ur Barbiturates Screen (Neg) Ur Amphetamines Screen (Neg) U Benzodiazepines Scrn (Neg) Urine Cocaine Screen (Neg) U Cannabinoids Screen (Neg) Hepatitis A IgM Ab (Nonreactive) Hep Bs Antigen (Nonreactive) Hep B Core IgM Ab (Nonreactive) Hep C IgG Ab (Nonreactive) 10/11/17 10/11/17 10/11/17 Range/Units 05:27 05:27 09:02 WBC 5.5 (4.0-11.0) th/mm3 RBC 4.60 (4.00-5.30) mil/mm3 Hgb 12.2 (11.6-15.3) gm/dL Hct 36.4 (35.0-46.0) % MCV 79.2 L (80.0-100.0) fL MCH 26.5 L (27.0-34.0) pg MCHC 33.5 (32.0-36.0) % RDW 15.5 (11.6-17.2) % Plt Count 346 (150-450) th/mm3 MPV 8.8 (7.0-11.0) fL Neut % (Auto) (16.0-70.0) % Lymph % (Auto) (9.0-44.0) % [place] % (Auto) (0.0-8.0) % Eos % (Auto) (0.0-4.0) % Baso % (Auto) (0.0-2.0) % Neut # (Auto) (1.8-7.7) th/mm3 Lymph # (Auto) (1.0-4.8) th/mm3 [place] # (Auto) (0.0-0.9) th/mm3 Eos # (Auto) (0.0-0.4) th/mm3 Baso # (Auto) (0.0-0.2) th/mm3 WBC Differential Differential Comment ESR (0-30) mm/hr Puncture Site Patient Temperature O2 Saturation (90-100) % ABG pH (7.380-7.420) ABG pCO2 (38-42) mmHg ABG pO2 (61-120) mmHg ABG HCO3 (22-26) mmol/L ABG O2 Content (12.0-20.0) Vol % ABG Base Excess (-2-2) mmol/L ABG Methemoglobin (0-2) % Oscar Test Hemoglobin (12.0-16.0) G/DL Carboxyhemoglobin (0-4) % Inspired O2 % Critical Value Sodium 139 (136-145) meq/L Potassium 4.1 D (3.5-5.1) meq/L Chloride 106 (98-107) meq/L Carbon Dioxide 25.3 (21.0-32.0) meq/L Anion Gap 8 (5-15) meq/L BUN 7 (7-18) mg/dL Creatinine 0.86 (0.50-1.00) mg/dL Estimated GFR 68 L (>89) mL/min POC Glucose 381 H (68-110) mg/dl Random Glucose 284 H (74-106) mg/dL Lactic Acid (0.4-2.0) mmol/L Calcium 7.8 L (8.5-10.1) mg/dL Phosphorus (2.5-4.9) mg/dL Magnesium (1.5-2.5) mg/dL Total Bilirubin Direct Bilirubin Indirect Bilirubin AST ALT Alkaline Phosphatase Total Protein Albumin Lipase Beta-Hydroxybutyric Acd (0.00-0.39) mmol/L Urine Color (Yellw/Straw) Urine Clarity (Clear) Urine pH (5.0-8.5) Ur Specific [place] (1.002-1.035) Urine Protein (Neg-Trace) mg/dL Urine Glucose (UA) (Negative) mg/dL Urine Ketones (Negative) mg/dL Urine Occult Blood (Negative) Urine Nitrate (Negative) Urine Bilirubin (Negative) Urine Urobilinogen (Less than 2) mg/dL Ur Leukocyte Esterase (Negative) Urine RBC (0-3) /hpf Urine WBC (0-5) /hpf Ur Squamous Epith Cells (0-5) /hpf Urine Mucus (Occasional) /lpf Micro UA Comment Urine Culture Comments Vancomycin Trough (5.0-10.0) mcg/mL Urine Opiates Screen (Neg) Ur Barbiturates Screen (Neg) Ur Amphetamines Screen (Neg) U Benzodiazepines Scrn (Neg) Urine Cocaine Screen (Neg) U Cannabinoids Screen (Neg) Hepatitis A IgM Ab (Nonreactive) Hep Bs Antigen (Nonreactive) Hep B Core IgM Ab (Nonreactive) Hep C IgG Ab (Nonreactive) 10/11/17 10/11/17 10/11/17 Range/Units 12:18 12:53 17:03 WBC (4.0-11.0) th/mm3 RBC (4.00-5.30) mil/mm3 Hgb (11.6-15.3) gm/dL Hct (35.0-46.0) % MCV (80.0-100.0) fL MCH (27.0-34.0) pg MCHC (32.0-36.0) % RDW (11.6-17.2) % Plt Count (150-450) th/mm3 MPV (7.0-11.0) fL Neut % (Auto) (16.0-70.0) % Lymph % (Auto) (9.0-44.0) % [place] % (Auto) (0.0-8.0) % Eos % (Auto) (0.0-4.0) % Baso % (Auto) (0.0-2.0) % Neut # (Auto) (1.8-7.7) th/mm3 Lymph # (Auto) (1.0-4.8) th/mm3 [place] # (Auto) (0.0-0.9) th/mm3 Eos # (Auto) (0.0-0.4) th/mm3 Baso # (Auto) (0.0-0.2) th/mm3 WBC Differential Differential Comment ESR (0-30) mm/hr Puncture Site Patient Temperature O2 Saturation (90-100) % ABG pH (7.380-7.420) ABG pCO2 (38-42) mmHg ABG pO2 (61-120) mmHg ABG HCO3 (22-26) mmol/L ABG O2 Content (12.0-20.0) Vol % ABG Base Excess (-2-2) mmol/L ABG Methemoglobin (0-2) % Oscar Test Hemoglobin (12.0-16.0) G/DL Carboxyhemoglobin (0-4) % Inspired O2 % Critical Value Sodium 135 L (136-145) meq/L Potassium 4.2 (3.5-5.1) meq/L Chloride 103 (98-107) meq/L Carbon Dioxide 23.8 (21.0-32.0) meq/L Anion Gap 8 (5-15) meq/L BUN 6 L (7-18) mg/dL Creatinine 1.03 H (0.50-1.00) mg/dL Estimated GFR 55 L (>89) mL/min POC Glucose 406 H 371 H (68-110) mg/dl Random Glucose 384 H D (74-106) mg/dL Lactic Acid (0.4-2.0) mmol/L Calcium 7.9 L (8.5-10.1) mg/dL Phosphorus (2.5-4.9) mg/dL Magnesium (1.5-2.5) mg/dL Total Bilirubin Direct Bilirubin Indirect Bilirubin AST ALT Alkaline Phosphatase Total Protein Albumin Lipase Beta-Hydroxybutyric Acd (0.00-0.39) mmol/L Urine Color (Yellw/Straw) Urine Clarity (Clear) Urine pH (5.0-8.5) Ur Specific [place] (1.002-1.035) Urine Protein (Neg-Trace) mg/dL Urine Glucose (UA) (Negative) mg/dL Urine Ketones (Negative) mg/dL Urine Occult Blood (Negative) Urine Nitrate (Negative) Urine Bilirubin (Negative) Urine Urobilinogen (Less than 2) mg/dL Ur Leukocyte Esterase (Negative) Urine RBC (0-3) /hpf Urine WBC (0-5) /hpf Ur Squamous Epith Cells (0-5) /hpf Urine Mucus (Occasional) /lpf Micro UA Comment Urine Culture Comments Vancomycin Trough (5.0-10.0) mcg/mL Urine Opiates Screen (Neg) Ur Barbiturates Screen (Neg) Ur Amphetamines Screen (Neg) U Benzodiazepines Scrn (Neg) Urine Cocaine Screen (Neg) U Cannabinoids Screen (Neg) Hepatitis A IgM Ab (Nonreactive) Hep Bs Antigen (Nonreactive) Hep B Core IgM Ab (Nonreactive) Hep C IgG Ab (Nonreactive) 07/22/18 07/23/18 07/23/18 Range/Units 20:44 03:21 04:00 WBC 5.4 (4.0-11.0) th/mm3 RBC 4.71 (4.00-5.30) mil/mm3 Hgb 12.5 (11.6-15.3) gm/dL Hct 37.3 (35.0-46.0) % MCV 79.2 L (80.0-100.0) fL MCH 26.6 L (27.0-34.0) pg MCHC 33.6 (32.0-36.0) % RDW 15.1 (11.6-17.2) % Plt Count 338 (150-450) th/mm3 MPV 9.0 (7.0-11.0) fL Neut % (Auto) (16.0-70.0) % Lymph % (Auto) (9.0-44.0) % [place] % (Auto) (0.0-8.0) % Eos % (Auto) (0.0-4.0) % Baso % (Auto) (0.0-2.0) % Neut # (Auto) (1.8-7.7) th/mm3 Lymph # (Auto) (1.0-4.8) th/mm3 [place] # (Auto) (0.0-0.9) th/mm3 Eos # (Auto) (0.0-0.4) th/mm3 Baso # (Auto) (0.0-0.2) th/mm3 WBC Differential Differential Comment ESR (0-30) mm/hr Puncture Site Patient Temperature O2 Saturation (90-100) % ABG pH (7.380-7.420) ABG pCO2 (38-42) mmHg ABG pO2 (61-120) mmHg ABG HCO3 (22-26) mmol/L ABG O2 Content (12.0-20.0) Vol % ABG Base Excess (-2-2) mmol/L ABG Methemoglobin (0-2) % Oscar Test Hemoglobin (12.0-16.0) G/DL Carboxyhemoglobin (0-4) % Inspired O2 % Critical Value Sodium (136-145) meq/L Potassium (3.5-5.1) meq/L Chloride (98-107) meq/L Carbon Dioxide (21.0-32.0) meq/L Anion Gap (5-15) meq/L BUN (7-18) mg/dL Creatinine (0.50-1.00) mg/dL Estimated GFR (>89) mL/min POC Glucose 288 H 285 H (68-110) mg/dl Random Glucose (74-106) mg/dL Lactic Acid (0.4-2.0) mmol/L Calcium (8.5-10.1) mg/dL Phosphorus (2.5-4.9) mg/dL Magnesium (1.5-2.5) mg/dL Total Bilirubin Direct Bilirubin Indirect Bilirubin AST ALT Alkaline Phosphatase Total Protein Albumin Lipase Beta-Hydroxybutyric Acd (0.00-0.39) mmol/L Urine Color (Yellw/Straw) Urine Clarity (Clear) Urine pH (5.0-8.5) Ur Specific [place] (1.002-1.035) Urine Protein (Neg-Trace) mg/dL Urine Glucose (UA) (Negative) mg/dL Urine Ketones (Negative) mg/dL Urine Occult Blood (Negative) Urine Nitrate (Negative) Urine Bilirubin (Negative) Urine Urobilinogen (Less than 2) mg/dL Ur Leukocyte Esterase (Negative) Urine RBC (0-3) /hpf Urine WBC (0-5) /hpf Ur Squamous Epith Cells (0-5) /hpf Urine Mucus (Occasional) /lpf Micro UA Comment Urine Culture Comments Vancomycin Trough (5.0-10.0) mcg/mL Urine Opiates Screen (Neg) Ur Barbiturates Screen (Neg) Ur Amphetamines Screen (Neg) U Benzodiazepines Scrn (Neg) Urine Cocaine Screen (Neg) U Cannabinoids Screen (Neg) Hepatitis A IgM Ab (Nonreactive) Hep Bs Antigen (Nonreactive) Hep B Core IgM Ab (Nonreactive) Hep C IgG Ab (Nonreactive) 10/12/17 10/12/17 10/12/17 Range/Units 04:00 07:32 11:57 WBC (4.0-11.0) th/mm3 RBC (4.00-5.30) mil/mm3 Hgb (11.6-15.3) gm/dL Hct (35.0-46.0) % MCV (80.0-100.0) fL MCH (27.0-34.0) pg MCHC (32.0-36.0) % RDW (11.6-17.2) % Plt Count (150-450) th/mm3 MPV (7.0-11.0) fL Neut % (Auto) (16.0-70.0) % Lymph % (Auto) (9.0-44.0) % [place] % (Auto) (0.0-8.0) % Eos % (Auto) (0.0-4.0) % Baso % (Auto) (0.0-2.0) % Neut # (Auto) (1.8-7.7) th/mm3 Lymph # (Auto) (1.0-4.8) th/mm3 [place] # (Auto) (0.0-0.9) th/mm3 Eos # (Auto) (0.0-0.4) th/mm3 Baso # (Auto) (0.0-0.2) th/mm3 WBC Differential Differential Comment ESR (0-30) mm/hr Puncture Site Patient Temperature O2 Saturation (90-100) % ABG pH (7.380-7.420) ABG pCO2 (38-42) mmHg ABG pO2 (61-120) mmHg ABG HCO3 (22-26) mmol/L ABG O2 Content (12.0-20.0) Vol % ABG Base Excess (-2-2) mmol/L ABG Methemoglobin (0-2) % Oscar Test Hemoglobin (12.0-16.0) G/DL Carboxyhemoglobin (0-4) % Inspired O2 % Critical Value Sodium 135 L (136-145) meq/L Potassium 3.7 (3.5-5.1) meq/L Chloride 100 (98-107) meq/L Carbon Dioxide 28.5 (21.0-32.0) meq/L Anion Gap 7 (5-15) meq/L BUN 12 (7-18) mg/dL Creatinine 0.81 (0.50-1.00) mg/dL Estimated GFR 73 L (>89) mL/min POC Glucose 184 H 372 H (68-110) mg/dl Random Glucose 260 H D (74-106) mg/dL Lactic Acid (0.4-2.0) mmol/L Calcium 8.0 L (8.5-10.1) mg/dL Phosphorus (2.5-4.9) mg/dL Magnesium (1.5-2.5) mg/dL Total Bilirubin Direct Bilirubin Indirect Bilirubin AST ALT Alkaline Phosphatase Total Protein Albumin Lipase Beta-Hydroxybutyric Acd (0.00-0.39) mmol/L Urine Color (Yellw/Straw) Urine Clarity (Clear) Urine pH (5.0-8.5) Ur Specific [place] (1.002-1.035) Urine Protein (Neg-Trace) mg/dL Urine Glucose (UA) (Negative) mg/dL Urine Ketones (Negative) mg/dL Urine Occult Blood (Negative) Urine Nitrate (Negative) Urine Bilirubin (Negative) Urine Urobilinogen (Less than 2) mg/dL Ur Leukocyte Esterase (Negative) Urine RBC (0-3) /hpf Urine WBC (0-5) /hpf Ur Squamous Epith Cells (0-5) /hpf Urine Mucus (Occasional) /lpf Micro UA Comment Urine Culture Comments Vancomycin Trough (5.0-10.0) mcg/mL Urine Opiates Screen (Neg) Ur Barbiturates Screen (Neg) Ur Amphetamines Screen (Neg) U Benzodiazepines Scrn (Neg) Urine Cocaine Screen (Neg) U Cannabinoids Screen (Neg) Hepatitis A IgM Ab (Nonreactive) Hep Bs Antigen (Nonreactive) Hep B Core IgM Ab (Nonreactive) Hep C IgG Ab (Nonreactive) 10/12/17 10/12/17 10/13/17 Range/Units 17:03 20:44 03:37 WBC (4.0-11.0) th/mm3 RBC (4.00-5.30) mil/mm3 Hgb (11.6-15.3) gm/dL Hct (35.0-46.0) % MCV (80.0-100.0) fL MCH (27.0-34.0) pg MCHC (32.0-36.0) % RDW (11.6-17.2) % Plt Count (150-450) th/mm3 MPV (7.0-11.0) fL Neut % (Auto) (16.0-70.0) % Lymph % (Auto) (9.0-44.0) % [place] % (Auto) (0.0-8.0) % Eos % (Auto) (0.0-4.0) % Baso % (Auto) (0.0-2.0) % Neut # (Auto) (1.8-7.7) th/mm3 Lymph # (Auto) (1.0-4.8) th/mm3 [place] # (Auto) (0.0-0.9) th/mm3 Eos # (Auto) (0.0-0.4) th/mm3 Baso # (Auto) (0.0-0.2) th/mm3 WBC Differential Differential Comment ESR (0-30) mm/hr Puncture Site Patient Temperature O2 Saturation (90-100) % ABG pH (7.380-7.420) ABG pCO2 (38-42) mmHg ABG pO2 (61-120) mmHg ABG HCO3 (22-26) mmol/L ABG O2 Content (12.0-20.0) Vol % ABG Base Excess (-2-2) mmol/L ABG Methemoglobin (0-2) % Oscar Test Hemoglobin (12.0-16.0) G/DL Carboxyhemoglobin (0-4) % Inspired O2 % Critical Value Sodium (136-145) meq/L Potassium (3.5-5.1) meq/L Chloride (98-107) meq/L Carbon Dioxide (21.0-32.0) meq/L Anion Gap (5-15) meq/L BUN (7-18) mg/dL Creatinine (0.50-1.00) mg/dL Estimated GFR (>89) mL/min POC Glucose 413 H 401 H 371 H (68-110) mg/dl Random Glucose (74-106) mg/dL Lactic Acid (0.4-2.0) mmol/L Calcium (8.5-10.1) mg/dL Phosphorus (2.5-4.9) mg/dL Magnesium (1.5-2.5) mg/dL Total Bilirubin Direct Bilirubin Indirect Bilirubin AST ALT Alkaline Phosphatase Total Protein Albumin Lipase Beta-Hydroxybutyric Acd (0.00-0.39) mmol/L Urine Color (Yellw/Straw) Urine Clarity (Clear) Urine pH (5.0-8.5) Ur Specific [place] (1.002-1.035) Urine Protein (Neg-Trace) mg/dL Urine Glucose (UA) (Negative) mg/dL Urine Ketones (Negative) mg/dL Urine Occult Blood (Negative) Urine Nitrate (Negative) Urine Bilirubin (Negative) Urine Urobilinogen (Less than 2) mg/dL Ur Leukocyte Esterase (Negative) Urine RBC (0-3) /hpf Urine WBC (0-5) /hpf Ur Squamous Epith Cells (0-5) /hpf Urine Mucus (Occasional) /lpf Micro UA Comment Urine Culture Comments Vancomycin Trough (5.0-10.0) mcg/mL Urine Opiates Screen (Neg) Ur Barbiturates Screen (Neg) Ur Amphetamines Screen (Neg) U Benzodiazepines Scrn (Neg) Urine Cocaine Screen (Neg) U Cannabinoids Screen (Neg) Hepatitis A IgM Ab (Nonreactive) Hep Bs Antigen (Nonreactive) Hep B Core IgM Ab (Nonreactive) Hep C IgG Ab (Nonreactive) 10/13/17 10/13/17 10/13/17 Range/Units 08:07 13:03 13:30 WBC (4.0-11.0) th/mm3 RBC (4.00-5.30) mil/mm3 Hgb (11.6-15.3) gm/dL Hct (35.0-46.0) % MCV (80.0-100.0) fL MCH (27.0-34.0) pg MCHC (32.0-36.0) % RDW (11.6-17.2) % Plt Count (150-450) th/mm3 MPV (7.0-11.0) fL Neut % (Auto) (16.0-70.0) % Lymph % (Auto) (9.0-44.0) % [place] % (Auto) (0.0-8.0) % Eos % (Auto) (0.0-4.0) % Baso % (Auto) (0.0-2.0) % Neut # (Auto) (1.8-7.7) th/mm3 Lymph # (Auto) (1.0-4.8) th/mm3 [place] # (Auto) (0.0-0.9) th/mm3 Eos # (Auto) (0.0-0.4) th/mm3 Baso # (Auto) (0.0-0.2) th/mm3 WBC Differential Differential Comment ESR (0-30) mm/hr Puncture Site Patient Temperature O2 Saturation (90-100) % ABG pH (7.380-7.420) ABG pCO2 (38-42) mmHg ABG pO2 (61-120) mmHg ABG HCO3 (22-26) mmol/L ABG O2 Content (12.0-20.0) Vol % ABG Base Excess (-2-2) mmol/L ABG Methemoglobin (0-2) % Oscar Test Hemoglobin (12.0-16.0) G/DL Carboxyhemoglobin (0-4) % Inspired O2 % Critical Value Sodium (136-145) meq/L Potassium (3.5-5.1) meq/L Chloride (98-107) meq/L Carbon Dioxide (21.0-32.0) meq/L Anion Gap (5-15) meq/L BUN (7-18) mg/dL Creatinine (0.50-1.00) mg/dL Estimated GFR (>89) mL/min POC Glucose 136 H 197 H (68-110) mg/dl Random Glucose (74-106) mg/dL Lactic Acid (0.4-2.0) mmol/L Calcium (8.5-10.1) mg/dL Phosphorus (2.5-4.9) mg/dL Magnesium (1.5-2.5) mg/dL Total Bilirubin Direct Bilirubin Indirect Bilirubin AST ALT Alkaline Phosphatase Total Protein Albumin Lipase Beta-Hydroxybutyric Acd (0.00-0.39) mmol/L Urine Color (Yellw/Straw) Urine Clarity (Clear) Urine pH (5.0-8.5) Ur Specific [place] (1.002-1.035) Urine Protein (Neg-Trace) mg/dL Urine Glucose (UA) (Negative) mg/dL Urine Ketones (Negative) mg/dL Urine Occult Blood (Negative) Urine Nitrate (Negative) Urine Bilirubin (Negative) Urine Urobilinogen (Less than 2) mg/dL Ur Leukocyte Esterase (Negative) Urine RBC (0-3) /hpf Urine WBC (0-5) /hpf Ur Squamous Epith Cells (0-5) /hpf Urine Mucus (Occasional) /lpf Micro UA Comment Urine Culture Comments Vancomycin Trough 7.2 (5.0-10.0) mcg/mL Urine Opiates Screen (Neg) Ur Barbiturates Screen (Neg) Ur Amphetamines Screen (Neg) U Benzodiazepines Scrn (Neg) Urine Cocaine Screen (Neg) U Cannabinoids Screen (Neg) Hepatitis A IgM Ab (Nonreactive) Hep Bs Antigen (Nonreactive) Hep B Core IgM Ab (Nonreactive) Hep C IgG Ab (Nonreactive) 10/13/17 10/13/17 Range/Units 16:15 21:26 WBC (4.0-11.0) th/mm3 RBC (4.00-5.30) mil/mm3 Hgb (11.6-15.3) gm/dL Hct (35.0-46.0) % MCV (80.0-100.0) fL MCH (27.0-34.0) pg MCHC (32.0-36.0) % RDW (11.6-17.2) % Plt Count (150-450) th/mm3 MPV (7.0-11.0) fL Neut % (Auto) (16.0-70.0) % Lymph % (Auto) (9.0-44.0) % [place] % (Auto) (0.0-8.0) % Eos % (Auto) (0.0-4.0) % Baso % (Auto) (0.0-2.0) % Neut # (Auto) (1.8-7.7) th/mm3 Lymph # (Auto) (1.0-4.8) th/mm3 [place] # (Auto) (0.0-0.9) th/mm3 Eos # (Auto) (0.0-0.4) th/mm3 Baso # (Auto) (0.0-0.2) th/mm3 WBC Differential Differential Comment ESR (0-30) mm/hr Puncture Site Patient Temperature O2 Saturation (90-100) % ABG pH (7.380-7.420) ABG pCO2 (38-42) mmHg ABG pO2 (61-120) mmHg ABG HCO3 (22-26) mmol/L ABG O2 Content (12.0-20.0) Vol % ABG Base Excess (-2-2) mmol/L ABG Methemoglobin (0-2) % Oscar Test Hemoglobin (12.0-16.0) G/DL Carboxyhemoglobin (0-4) % Inspired O2 % Critical Value Sodium (136-145) meq/L Potassium (3.5-5.1) meq/L Chloride (98-107) meq/L Carbon Dioxide (21.0-32.0) meq/L Anion Gap (5-15) meq/L BUN (7-18) mg/dL Creatinine (0.50-1.00) mg/dL Estimated GFR (>89) mL/min POC Glucose 182 H 130 H (68-110) mg/dl Random Glucose (74-106) mg/dL Lactic Acid (0.4-2.0) mmol/L Calcium (8.5-10.1) mg/dL Phosphorus (2.5-4.9) mg/dL Magnesium (1.5-2.5) mg/dL Total Bilirubin Direct Bilirubin Indirect Bilirubin AST ALT Alkaline Phosphatase Total Protein Albumin Lipase Beta-Hydroxybutyric Acd (0.00-0.39) mmol/L Urine Color (Yellw/Straw) Urine Clarity (Clear) Urine pH (5.0-8.5) Ur Specific [place] (1.002-1.035) Urine Protein (Neg-Trace) mg/dL Urine Glucose (UA) (Negative) mg/dL Urine Ketones (Negative) mg/dL Urine Occult Blood (Negative) Urine Nitrate (Negative) Urine Bilirubin (Negative) Urine Urobilinogen (Less than 2) mg/dL Ur Leukocyte Esterase (Negative) Urine RBC (0-3) /hpf Urine WBC (0-5) /hpf Ur Squamous Epith Cells (0-5) /hpf Urine Mucus (Occasional) /lpf Micro UA Comment Urine Culture Comments Vancomycin Trough (5.0-10.0) mcg/mL Urine Opiates Screen (Neg) Ur Barbiturates Screen (Neg) Ur Amphetamines Screen (Neg) U Benzodiazepines Scrn (Neg) Urine Cocaine Screen (Neg) U Cannabinoids Screen (Neg) Hepatitis A IgM Ab (Nonreactive) Hep Bs Antigen (Nonreactive) Hep B Core IgM Ab (Nonreactive) Hep C IgG Ab (Nonreactive) Imaging Data Radiologist's impression: Chest X-Ray 10/10/17 00:00 CONCLUSION: Minimal left basilar density could be atelectasis or minimal infiltrate. Extremity Arterial Study 10/10/17 00:00 CONCLUSION: 1. Ankle-brachial index is approximately 1.1 on both the right and the left side. There is some blunting of the waveforms on the right. Foot X-Ray 10/10/17 00:00 CONCLUSION: Amputation distal phalanx great toe. Soft tissue swelling without acute bony abnormality. Venous Doppler Study 10/10/17 00:00 CONCLUSION: 1. The study is negative for bilateral lower extremity deep venous thrombosis. Chest X-Ray 10/11/17 00:00 CONCLUSION: No acute cardiopulmonary disease. Foot MRI 10/13/17 00:00 CONCLUSION: 1. Evidence of osteomyelitis of the third toe. There is either marked erosion or indication of the middle and distal phalanges. Severe bone marrow signal abnormality of the proximal phalanx diffusely indicating osteomyelitis. 2. Soft tissue edema and enhancement of the heel suggesting cellulitis. Minimal adjacent bone marrow signal abnormality of the plantar posterior aspect of the calcaneus indicating possible early osteomyelitis in this region. 3. Prominent arthrosis of the great toe metatarsophalangeal joint as well as the midfoot. Foot X-Ray 10/13/17 00:00 CONCLUSION: Status post amputation at the third digit. The patient is also status status post amputation at the distal first phalanx. Chronic remodeling at the first proximal phalanx and at the second middle phalanx. 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
[2017-10-10] MEDS ORDERED: Sod Chloride 0.9% Inj 1,000 ML IV.SIG ONE ×2 (08:26→09:58)
[2017-10-10] MEDS ORDERED: Vancomycin Inj 1,000 MG in Sodium Chlor 0.9% Inj 250 ML IV.SIG STA (08:26)
[2017-10-10] MEDS ORDERED: Piperacil/Tazo 4.5 GM Premix 4.5 GM/100 ML BAG IV.SIG STA (08:26)
[2017-10-10 09:16] LABS: Baso # (Auto) 0.1 th/mm3 (0.0-0.2); Baso % (Auto) 1.3 % (0.0-2.0); Eos # (Auto) 0.1 th/mm3 (0.0-0.4); Eos % (Auto) 0.7 % (0.0-4.0); Hematocrit 38.4 % (35.0-46.0); Hemoglobin 12.6 gm/dL (11.6-15.3); Lymph # (Auto) 1.2 th/mm3 (1.0-4.8); Lymph % (Auto) 17.1 % (9.0-44.0); Mean Corpuscular HGB Conc 32.8 % (32.0-36.0); Mean Corpuscular Hemoglobin 26.3 pg (27.0-34.0); Mean Corpuscular Volume 80.1 fL (80.0-100.0); Mean Platelet Volume 9.1 fL (7.0-11.0); Mono # (Auto) 0.4 th/mm3 (0.0-0.9); Mono % (Auto) 6.1 % (0.0-8.0); Neut # (Auto) 5.1 th/mm3 (1.8-7.7); Neut % (Auto) 74.8 % (16.0-70.0); Platelet Count 396 th/mm3 (150-450); Red Blood Count 4.79 mil/mm3 (4.00-5.30); White Blood Count 6.8 th/mm3 (4.0-11.0)
[2017-10-10] MEDS ORDERED: Morphine Sulfate Inj 2 MG/ML Vial IV.PUSH ONE (09:30)
[2017-10-10 09:37] LABS: Calcium 9.4 mg/dL (8.5-10.1); Carbon Dioxide 24.9 meq/L (21.0-32.0); Potassium 3.7 meq/L (3.5-5.1)
--- NOTE | 2017-10-10 11:11 | P.HPFP ---
History of Present Illness Primary Care Physician: UNKNOWN <LexieJerrellIsis M - 10/10/17 17:33> UNKNOWN <Lamont Duffy Fabi 10/10/17 11:11> Chief Complaint: L foot wound <Lamont Duffy 10/10/17 13:37> History of Present Illness: 57-year-old female with history of type 2 diabetes, COPD, depression, history of DVT in L arm, hepatitis C, and HLD presenting to the emergency room with a left foot wound infection. 3 weeks prior to presentation, patient had a partial amputation of the left third toe performed at [facility]. She states that she was unable to follow-up with a vacuum cleaner mechanic following hospital discharge due to insurance complications. Patient was seen by her PCP 2 days prior to presentation was told to come to the ED at that time , the patient stated that she needed to have her dog taking care of prior to coming here. She states that for the last 4-5 days she has had nausea and vomiting, chills, leg cramps, decreased appetite, increased thirst and increased urinary frequency. The surgical site on the left foot has had purulent drainage and swelling. She states she has also felt more confused and has had blurry vision. Denies any falls, headache, measured fevers, dysuria, malodorous urine, blood in her vomit, or diarrhea. <Lamont Duffy Fabi 10/10/17 15:35> - Diagnosis (1) Toe infection (2) Hyperglycemia without ketosis (3) Nausea & vomiting (4) Hyponatremia (5) Hepatitis C (6) COPD (chronic obstructive pulmonary disease) (7) Substance abuse (8) Diabetes (9) Hyperlipidemia (10) Depression (11) Elevated blood pressure reading <LexieJerrellIsis M - 10/10/17 17:33> (1) Toe infection (2) Hyperglycemia without ketosis (3) Nausea & vomiting (4) Hyponatremia (5) Hepatitis C (6) COPD (chronic obstructive pulmonary disease) (7) Substance abuse (8) Diabetes (9) Hyperlipidemia (10) Depression (11) Elevated blood pressure reading <Lamont Duffy Fabi 10/10/17 16:02> Inpatient Certification: I certify that the inpatient services were ordered in accordance with Medicare regulations governing the order. This includes certification that hospital inpatient services are reasonable and necessary and in the case of services not specified as inpatient-only under 42 CFR 419.22(n), that they are appropriately provided as inpatient services in accordance to with the 2-midnight benchmark under 43 CFR 412.3(e) <Isis Owen [facility] 10/10/17 17:33> Review of Systems Constitutional: Reports body ache(s), Reports chills, Denies fever(s), Denies headache(s) [facility] 14[facility]> Eyes: Reports blurry vision, Denies pain [facility]/10[facility]17 14:25> Ears, Nose, Mouth, and Throat: Denies post nasal drip, Denies sore throat < [facility] 10/10[facility]17 14:25> Cardiovascular: Denies chest pain, Denies shortness of breath [facility] 10/10/17 14:25> Respiratory: Reports cough, Denies excessive phlegm production <Duffy [facility] 10/10/17 14:25> Gastrointestinal: Reports constipation, Reports nausea, Reports vomiting, Denies abdominal pain, Denies black, tarry stools, Denies change in stools, Denies vomiting blood <CliveLamont [facility] 10/10/17 14:25> Genitourinary: Denies blood in urine, Denies difficulty urinating <Duffy [facility] 10/10/17 14:25> Comments: no dysuria. + urinary frequency <Lamont Duffy [facility] 10/10/17 14:25> Musculoskeletal: Reports back pain, Reports muscle cramps [facility] 10/10/17 14:25> Skin/Breast: Reports skin ulcer, Reports sores <[facility] 10/10/17 15 :35> Neurologic: Reports confusion, Reports dizziness [facility] 10/10/17 15:35> PMFSH - History History Provided By: Patient <Lamont Duffy [facility] 10/10/17 11:11> - Medical History Medical History: Medical History (Last Updated 10/10/17 @ 11:10 by Lamont Duffy MD, R2) Depression (Acute) Amputated great toe of left foot (Acute) COPD (chronic obstructive pulmonary disease) (Chronic) Diabetes (Chronic) High cholesterol (Acute) DVT (deep venous thrombosis) Hepatitis <Isis Owen [facility] 10/10/17 17:33> Medical History (Last Updated 10/10/17 @ 11:10 by Lamont Duffy MD, R2) Depression (Acute) Amputated great toe of left foot (Acute) COPD (chronic obstructive pulmonary disease) (Chronic) Diabetes (Chronic) High cholesterol (Acute) DVT (deep venous thrombosis) Hepatitis <Lamont Duffy 10/10/17 16:20> - Surgical History Surgical History: Surgical History (Last Updated 10/10/17 @ 11:10 by Lamont Duffy MD, R2) History of partial ray amputation of third toe of left foot (Acute) History of bowel resection History of cholecystectomy <Isis Owen [facility] 10/10/17 17:33> Surgical History (Last Updated 10/10/17 @ 11:10 by Lamont Duffy MD, R2) History of partial ray amputation of third toe of left foot (Acute) History of bowel resection History of cholecystectomy <Lamont Duffy 10/10/17 11:11> - Family History Family History: Family History (Last Updated 10/10/17 @ 11:10 by Lamont Duffy MD, R2) Other Alzheimer disease Cancer Diabetes Hypertension <Isis Owen [facility] 10/10/17 17:33> Family History (Last Updated 10/10/17 @ 11:10 by Lamont Duffy MD, R2) Other Alzheimer disease Cancer Diabetes Hypertension <Lamont Duffy 10/10/17 11:11> - Tobacco History Second Hand Smoke Exposure: Yes <Lamont Duffy 10/10/17 11:11> Tobacco Use In Past 30 Days: Yes <Lamont Duffy 10/10/17 11:11> Smoking Status: Current every day smoker <Lamont Duffy 10/10/17 11:11> Tobacco Type: Cigarettes <Lamont Duffy 10/10/17 11:11> - Alcohol History How Often Do You Have a Drink Containing Alcohol: Never <Lamont Duffy 11:11> - Substance Use History Substance History: Active Abuse <Lamont Duffy 10/10/17 11:11> - Substance Use Type Crack/Cocaine Status: Active <Lamont Duffy 10/10/17 11:11> Route Used: Inhalation <Lamont uDffy 10/10/17 11:11> Reason for Use: Get High <Lamont Duffy Fabi - 10/10/17 11:11> - Travel History Recent Travel in the [place] Within the Last 8 Weeks: No <Lamont Duffy Fabi - 10/10 11:11> Recent Travel Out of the Country Within the Last 8 Weeks: No <Lamont Duffy Fabi - 10/10/17 11:11> - Immunization History Tetanus Immunization: <5 Years <Lamont Duffy Fabi - 10/10/17 11:11> Hx Influenza Vaccine This Season: No <DuffyLamont Fabi - 10/10/17 11:11> Medications and Allergies Allergies Allergy/AdvReac Type Severity Reaction Status Date / Time lisinopril Allergy Intermediate Cough Verified 10/10/17 08:28 phenytoin Allergy Unknown Hives Verified 10/10/17 08:28 <Isis Owen - 10/10/17 17:33> Home Medications Medication Instructions Recorded Confirmed Type atenolol 25 mg PO DAILY 10/10/17 10/10/17 History atorvastatin 10 mg PO DAILY 10/10/17 10/10/17 History duloxetine [Cymbalta] 20 mg PO BID 10/10/17 10/10/17 History hydroxyzine pamoate 150 mg PO HS 10/10/17 10/10/17 History insulin glargine [Toujeo SoloStar 35 unit SUB-Q BID 10/10/17 10/10/17 History U-300 Insulin] insulin lispro [Humalog U-100 10 unit SUB-Q TID 10/10/17 10/10/17 History Insulin] oxycodone-acetaminophen [Percocet] 1 tab PO Q4-6H PRN 10/10/17 10/10/17 History pregabalin [Lyrica] 100 mg PO BID 10/10/17 10/10/17 History <Isis Owen - 10/10/17 17:33> Active Medications: Active Medications Acetaminophen (Tylenol) 650 mg PO Q6HR PRN PRN Reason: PAIN SCALE 1 TO 2 Al Hydroxide/Mg Hydroxide (Milk Of Magnesia Liq) 30 ml PO Q12H PRN PRN Reason: Mild Constipation Albuterol (Duoneb Neb (Andreas)) 1 ampul NEB Q6HR NEB ANDREAS Last Admin: 07/21/18 16:58 Dose: Not Given Albuterol (Albuterol Neb (Prn)) 2.5 mg NEB Q2HR NEB PRN PRN Reason: SHORTNESS OF BREATH Atenolol (Tenormin) 25 mg PO DAILY [facility] Last Admin: 10/10/17 13:37 Dose: 25 mg Bisacodyl (Dulcolax Supp) 10 mg RECTAL DAILY PRN PRN Reason: SEVERE CONSITIPATION Chlorhexidine Gluconate (Chlorhexidine 2% Cloth) 3 pack TOPICAL DAILY@0400 [facility] Stop: 10/16/17 03:59 Chlorhexidine Gluconate (Chlorhexidine 2% Cloth) 3 pack TOPICAL DAILY@0400 PRN PRN Reason: Extra cloth needed Stop: 10/16/17 03:59 Clonidine HCl (Catapres) 0.1 mg PO Q6H PRN PRN Reason: SEE LABEL COMMENTS Dextrose (D50w Vial) 50 ml IV.PUSH UNSCH PRN PRN Reason: PER HYPOGLYCEMIA PROTOCOL Dextrose (D50w Vial) 50 ml IV.PUSH UNSCH PRN PRN Reason: PER HYPOGLYCEMIA PROTOCOL Enoxaparin Sodium (Lovenox Inj) 40 mg SQ Q24H [facility] Last Admin: 10/10/17 16:55 Dose: 40 mg Glucagon (Glucagon Inj) 1 mg OTHER PRN PRN PRN Reason: for Hypoglycemia Protocol Sodium Chloride (Ns Inj) 1,000 mls @ 250 mls/hr IV.CONT .Q4H [facility] Last Admin: 10/10/17 13:37 Dose: 250 mls/hr Potassium Chloride (Kcl 40 Meq Premix Inj) 40 meq in 100 mls @ 100 mls/hr IV.SIG Q1H PRN PRN Reason: for Initial K+ ONLY < 3.5 Potassium Chloride (Kcl 40 Meq Premix Inj) 40 meq in 100 mls @ 50 mls/hr IV.SIG Q2H PRN PRN Reason: for Subsequent K+ < 3.5 Potassium Chloride (Kcl 20 Meq Premix Inj) 20 meq in 100 mls @ 100 mls/hr IV.SIG Q1H PRN PRN Reason: for K+ 3.5 to 4.4 Potassium Chloride (Kcl 20 Meq Premix Inj) 20 meq in 100 mls @ 100 mls/hr IV.SIG Q1H PRN PRN Reason: for K+ 4.5 to 5 Potassium Chloride (Kcl 20 Meq Premix Inj) 20 meq in 100 mls @ 50 mls/hr IV.SIG Q2H PRN PRN Reason: for Initial K+ ONLY < 3.5 Potassium Chloride (Kcl 20 Meq Premix Inj) 20 meq in 100 mls @ 50 mls/hr IV.SIG Q2H PRN PRN Reason: for Subsequent K+ < 3.5 Potassium Chloride (Kcl 20 Meq Premix Inj) 20 meq in 100 mls @ 50 mls/hr IV.SIG Q2H PRN PRN Reason: for K+ 3.5 to 4.4 Sodium Phosphate 15 mmol/ (Sodium Chloride) 105 mls @ 25 mls/hr IV.SIG UNSCH PRN PRN Reason: for Phosphate Level < 1.0 Dextrose/Sodium Chloride (D5w/Normal Saline Inj) 1,000 mls @ 200 mls/hr IV.CONT .Q5H ANDREAS Last Admin: 10/10/17 13:28 Dose: Not Given Potassium Chloride (Kcl 20 Meq Premix Inj) 20 meq in 100 mls @ 50 mls/hr IV.SIG Q2H PRN PRN Reason: for K+ 4.5 to 5 Insulin Human Regular 100 unit (/ Sodium Chloride) 100 mls @ 0 mls/hr IV.CONT TITRATE PRN; Protocol PRN Reason: See protocol Pharmacy Profile Note (Vancomycin Consult Pharmacy) 0 mls @ 0 mls/hr OTHER UNSCH ANDREAS Piperacillin/Tazobactam/Dextrose (Zosyn 4.5 Gm Premix) 4.5 gm in 100 mls @ 200 mls/hr IV.SIG Q8H ANDREAS Last Admin: 10/10/17 16:58 Dose: 200 mls/hr Vancomycin HCl 1,250 mg/ (Sodium Chloride) 262.5 mls @ 250 mls/hr IV.SIG Q24H ANDREAS Insulin Aspart (Novolog Insulin Correctional Sugar Inj) 0 unit SQ ACHS AND 3AM ANDREAS; Protocol Miscellaneous Information ([facility] Ordered Lab Info) 0 each OTHER ONCE ONE Stop: 10/13/17 05:46 Naloxone HCl (Narcan Inj) 0.4 mg IV.PUSH UNSCH PRN PRN Reason: SEE LABEL COMMENTS Ondansetron HCl (Zofran Odt) 4 mg PO Q6H PRN PRN Reason: NAUSEA OR VOMITING Oxycodone/Acetaminophen (Percocet 10/325 Mg) 1 tab PO Q6H PRN PRN Reason: PAIN SCALE 6 TO 10 Oxycodone/Acetaminophen (Percocet 5/325 Mg) 1 tab PO Q6H PRN PRN Reason: PAIN SCALE 3 TO 5 Senna/Docusate Sodium (Sophy-Colace) 1 tab PO BID ANDREAS Sennosides (Senokot) 17.2 mg PO Q12H PRN PRN Reason: Moderate Constipation Sodium Bicarbonate (Sodium Bicarbonate 8.4% Inj) 50 meq IV.PUSH UNSCH PRN PRN Reason: for pH 6.9 to 7.0 Sodium Bicarbonate (Sodium Bicarbonate 8.4% Inj) 100 meq IV.PUSH UNSCH PRN PRN Reason: for pH less than 6.9 <Isis Owen - 10/10/17 17:33> Exam Vital signs: Vital Signs 10/10/17 08:00 10/10/17 08:19 10/10/17 10:00 Temperature 97.3 F L Pulse Rate 115 H 108 H 99 H Respiratory Rate 16 17 Blood Pressure 160/73 H 176/97 H 144/72 H Pulse Oximetry 100 95 98 10/10/17 12:51 10/10/17 15:03 10/10/17 17:02 Temperature 98.3 F Pulse Rate 91 H 79 74 Respiratory Rate 15 16 22 Blood Pressure 141/67 H 126/58 L 145/76 H Pulse Oximetry 95 97 96 Intake & Output 10/09/17 10/10/17 10/10/17 18:59 06:59 18:59 Intake Total 1100 / 1100 Balance 1100 / 1100 Weight 70.76 kg Intake: IV 1100 / 1100 Zosyn 4.5 GM Premix 4.5 gm In 100 / 100 100 ml @ 200 mls/hr IV.SIG STAT STA Rx#:[id number] NS Inj 1,000 ML @ Wide Open IV. 1000 / 1000 SIG BOLUS ONE Rx#:[id number] Other: # Voids 1 <Isis Owen - 10/10/17 17:33> Vital Signs 10/10/17 08:00 10/10/17 08:19 Temperature 97.3 F L Pulse Rate 115 H 108 H Respiratory Rate 16 Blood Pressure 160/73 H 176/97 H Pulse Oximetry 100 95 Intake & Output 10/09/17 10/10/17 10/10/17 18:59 06:59 18:59 Intake Total 1100 / 1100 Balance 1100 / 1100 Weight 70.76 kg Intake: IV 1100 / 1100 Zosyn 4.5 GM Premix 4.5 gm In 100 / 100 100 ml @ 200 mls/hr IV.SIG STAT STA Rx#:[id number] NS Inj 1,000 ML @ Wide Open IV. 1000 / 1000 SIG BOLUS ONE Rx#:[id number] Other: # Voids 1 <Lamont Duffy - 10/10/17 11:11> Narrative: GENERAL: Well-nourished, well-developed patient. No acute distress. Patient appears drowsy and occasionally falls asleep during interview. Easy to arouse SKIN: Warm and dry. No rash. EYES: No scleral icterus. No injection or drainage. PERRLA. EOMI. HENT: Normocephalic. Atraumatic. MMM. Oropharynx is benign NECK: No visible JVD or lymphadenopathy. CARDIOVASCULAR: Warm and well perfused. Regular rate and rhythm with no murmurs appreciated RESPIRATORY: Normal respiratory effort. Occasional expiratory wheeze appreciated in the posterior lung trejo bilaterally. No crackles. Moving air well and symmetric bilaterally GASTROINTESTINAL: Liver edge palpated approximately 10 cm below the lower ribs. Right upper quadrant is tender to palpation. Otherwise abdomen is nondistended, nontender. MUSCULOSKELETAL: Strength grossly WNL. Distal pulses palpated bilateral feet. No lesions appreciated on the right foot. Left foot significant for healing, nondraining wound on the plantar aspect of the heel. There are several ulcerations appreciated on the plantar surface of the foot more distally. No active drainage or bleeding from those sites. The left great toe was previously partially amputated with no active lesions currently. The third toe that was recently partially amputated has active purulent drainage and signs of poor healing. Malodorous. BACK: Without obvious deformity. NEURO/PSYCH: Afocal. Oriented x3. <Lamont Duffy - 10/10/17 15:35> Results - Labs Result diagrams: 10/10/17 08:50 10/10/17 08:50 <Isis Owen - 10/10/17 17:33> Abnormal lab results 10/10/17 10/10/17 10/10/17 Range/Units 08:50 08:50 08:50 MCH 26.3 L (27.0-34.0) pg Neut % (Auto) 74.8 H (16.0-70.0) % ABG pH (7.380-7.420) ABG HCO3 (22-26) mmol/L ABG Base Excess (-2-2) mmol/L Hemoglobin (12.0-16.0) G/DL Sodium 122 L* (136-145) meq/L Chloride 83 L (98-107) meq/L Creatinine 1.29 H (0.50-1.00) mg/dL Estimated GFR 43 L (>89) mL/min POC Glucose (68-110) mg/dl Random Glucose 714 H* (74-106) mg/dL AST 14 L (15-37) U/L Alkaline Phosphatase 125 H (45-117) U/L Albumin 3.0 L (3.4-5.0) g/dL Beta-Hydroxybutyric Acd 2.30 H (0.00-0.39) mmol/L Urine Mucus (Occasional) /lpf Urine Cocaine Screen (Neg) 10/10/17 10/10/17 10/10/17 Range/Units 12:03 12:49 13:08 MCH (27.0-34.0) pg Neut % (Auto) (16.0-70.0) % ABG pH 7.43 H (7.380-7.420) ABG HCO3 28 H (22-26) mmol/L ABG Base Excess 3.8 H (-2-2) mmol/L Hemoglobin 11.6 L (12.0-16.0) G/DL Sodium (136-145) meq/L Chloride (98-107) meq/L Creatinine (0.50-1.00) mg/dL Estimated GFR (>89) mL/min POC Glucose 266 H (68-110) mg/dl Random Glucose (74-106) mg/dL AST (15-37) U/L Alkaline Phosphatase (45-117) U/L Albumin (3.4-5.0) g/dL Beta-Hydroxybutyric Acd (0.00-0.39) mmol/L Urine Mucus (Occasional) /lpf Urine Cocaine Screen Pos H (Neg) 10/10/17 10/10/17 10/10/17 Range/Units 13:08 15:02 17:01 MCH (27.0-34.0) pg Neut % (Auto) (16.0-70.0) % ABG pH (7.380-7.420) ABG HCO3 (22-26) mmol/L ABG Base Excess (-2-2) mmol/L Hemoglobin (12.0-16.0) G/DL Sodium (136-145) meq/L Chloride (98-107) meq/L Creatinine (0.50-1.00) mg/dL Estimated GFR (>89) mL/min POC Glucose 198 H 182 H (68-110) mg/dl Random Glucose (74-106) mg/dL AST (15-37) U/L Alkaline Phosphatase (45-117) U/L Albumin (3.4-5.0) g/dL Beta-Hydroxybutyric Acd (0.00-0.39) mmol/L Urine Mucus Few H (Occasional) /lpf Urine Cocaine Screen (Neg) Short CBC 10/10/17 Range/Units 08:50 WBC 6.8 (4.0-11.0) th/mm3 Hgb 12.6 (11.6-15.3) gm/dL Hct 38.4 (35.0-46.0) % Plt Count 396 (150-450) th/mm3 BMP 10/10/17 08:50 Sodium 122 L* Potassium 3.7 Chloride 83 L Carbon Dioxide 24.9 BUN 12 Creatinine 1.29 H Calcium 9.4 Liver Function 10/10/17 10/10/17 Range/Units 08:50 08:50 Total Bilirubin Cancelled 0.6 Direct Bilirubin Cancelled 0.2 AST Cancelled 14 L ALT Cancelled 13 Alkaline Phosphatase Cancelled 125 H Albumin Cancelled 3.0 L Urine 10/10/17 Range/Units 13:08 Urine Color Straw (Yellw/Straw) Urine Clarity Clear (Clear) Urine pH 6.0 (5.0-8.5) Ur Specific [place] 1.028 (1.002-1.035) Urine Protein Negative (Neg-Trace) mg/dL Urine Glucose (UA) 500 or greater (Negative) mg/dL <Isis Owen - 10/10/17 17:33> Abnormal lab results 10/10/17 10/10/17 Range/Units 08:50 08:50 MCH 26.3 L (27.0-34.0) pg Neut % (Auto) 74.8 H (16.0-70.0) % Sodium 122 L* (136-145) meq/L Chloride 83 L (98-107) meq/L Creatinine 1.29 H (0.50-1.00) mg/dL Estimated GFR 43 L (>89) mL/min Random Glucose 714 H* (74-106) mg/dL Short CBC 10/10/17 Range/Units 08:50 WBC 6.8 (4.0-11.0) th/mm3 Hgb 12.6 (11.6-15.3) gm/dL Hct 38.4 (35.0-46.0) % Plt Count 396 (150-450) th/mm3 BMP 10/10/17 08:50 Sodium 122 L* Potassium 3.7 Chloride 83 L Carbon Dioxide 24.9 BUN 12 Creatinine 1.29 H Calcium 9.4 <Lamont Duffy - 10/10/17 11:11> - Imaging Impressions Chest X-Ray 10/10/17 00:00 CONCLUSION: Minimal left basilar density could be atelectasis or minimal infiltrate. Foot X-Ray 10/10/17 00:00 CONCLUSION: Amputation distal phalanx great toe. Soft tissue swelling without acute bony abnormality. Venous Doppler Study 10/10/17 00:00 CONCLUSION: 1. The study is negative for bilateral lower extremity deep venous thrombosis. <Isis Owen M - 10/10/17 17:33> Caprini VTE Risk Assessment Caprini VTE Risk Assessment: Moderate/High Risk (score >= 2) <Lamont Duffy - 10/10/17 15:35> Caprini Risk Assessment Model: Point Value = 1 Point Value = 2 Point Value = 3 Point Value = 5 Age 41-60 Minor surgery BMI > 25 kg/m2 Swollen legs Varicose veins or History of unexplained or recurrent spontaneous Oral contraceptives or hormone replacement Sepsis (< 1 month) Serious lung disease, including pneumonia (< 1 month) Abnormal pulmonary function Acute myocardial infarction Congestive heart failure (< 1 month) History of inflammatory bowel disease Medical patient at bed rest Age 61-74 Arthroscopic surgery Major open surgery (> 45 min) Laparoscopic surgery (> 45 min) Malignancy Confined to bed (> 72 hours) Immobilizing plaster cast Central venous access Age >= 75 History of VTE Family history of VTE Factor V Leiden Prothrombin [id number] Lupus anticoagulant Anticardiolipin antibodies Elevated serum homocysteine Heparin-induced thrombocytopenia Other congenital or acquired thrombophilia Stroke (< 1 month) Elective arthroplasty Hip, pelvis, or leg fracture Acute spinal cord injury (< 1 month) <Isis Owen - 10/10/17 17:33> Point Value = 1 Point Value = 2 Point Value = 3 Point Value = 5 Age 41-60 Minor surgery BMI > 25 kg/m2 Swollen legs Varicose veins or History of unexplained or recurrent spontaneous Oral contraceptives or hormone replacement Sepsis (< 1 month) Serious lung disease, including pneumonia (< 1 month) Abnormal pulmonary function Acute myocardial infarction Congestive heart failure (< 1 month) History of inflammatory bowel disease Medical patient at bed rest Age 61-74 Arthroscopic surgery Major open surgery (> 45 min) Laparoscopic surgery (> 45 min) Malignancy Confined to bed (> 72 hours) Immobilizing plaster cast Central venous access Age >= 75 History of VTE Family history of VTE Factor V Leiden Prothrombin [id number] Lupus anticoagulant Anticardiolipin antibodies Elevated serum homocysteine Heparin-induced thrombocytopenia Other congenital or acquired thrombophilia Stroke (< 1 month) Elective arthroplasty Hip, pelvis, or leg fracture Acute spinal cord injury (< 1 month) <Lamont Duffy - 10/10/17 11:11> Prophylaxis Regimen: Total Risk Factor Score Risk Level Prophylaxis Regimen 0-1 Low Early ambulation 2 Moderate Order ONE of the following: *Sequential Compression Device (SCD) *Heparin 5000 units SQ BID 3-4 Higher Order ONE of the following medications: *Heparin 5000 units SQ TID *Enoxaparin/Lovenox 40 mg SQ daily (WT < 150 kg, CrCl > 30 mL/min) *Enoxaparin/Lovenox 30 mg SQ daily (WT < 150 kg, CrCl > 10-29 mL/min) *Enoxaparin/Lovenox 30 mg SQ BID (WT < 150 kg, CrCl > 30 mL/min) AND/OR *Sequential Compression Device (SCD) 5 or more Highest Order ONE of the following medications: *Heparin 5000 units SQ TID (Preferred with Epidurals) *Enoxaparin/Lovenox 40 mg SQ daily (WT < 150 kg, CrCl > 30 mL/min) *Enoxaparin/Lovenox 30 mg SQ daily (WT < 150 kg, CrCl > 10-29 mL/min) *Enoxaparin/Lovenox 30 mg SQ BID (WT < 150 kg, CrCl > 30 mL/min) AND *Sequential Compression Device (SCD) <Isis Owen - 10/10/17 17:33> Total Risk Factor Score Risk Level Prophylaxis Regimen 0-1 Low Early ambulation 2 Moderate Order ONE of the following: *Sequential Compression Device (SCD) *Heparin 5000 units SQ BID 3-4 Higher Order ONE of the following medications: *Heparin 5000 units SQ TID *Enoxaparin/Lovenox 40 mg SQ daily (WT < 150 kg, CrCl > 30 mL/min) *Enoxaparin/Lovenox 30 mg SQ daily (WT < 150 kg, CrCl > 10-29 mL/min) *Enoxaparin/Lovenox 30 mg SQ BID (WT < 150 kg, CrCl > 30 mL/min) AND/OR *Sequential Compression Device (SCD) 5 or more Highest Order ONE of the following medications: *Heparin 5000 units SQ TID (Preferred with Epidurals) *Enoxaparin/Lovenox 40 mg SQ daily (WT < 150 kg, CrCl > 30 mL/min) *Enoxaparin/Lovenox 30 mg SQ daily (WT < 150 kg, CrCl > 10-29 mL/min) *Enoxaparin/Lovenox 30 mg SQ BID (WT < 150 kg, CrCl > 30 mL/min) AND *Sequential Compression Device (SCD) <Lamont Duffy - 10/10/17 11:11> Assessment and Plan - Assessment (1) Toe infection Code(s): L08.9 - Local infection of the skin and subcutaneous tissue, unspecified Status: Acute (2) Hyperglycemia without ketosis Code(s): R73.9 - Hyperglycemia, unspecified Status: Acute (3) Nausea & vomiting Code(s): R11.2 - Nausea with vomiting, unspecified Status: Acute (4) Hyponatremia Code(s): E87.1 - Hypo-osmolality and hyponatremia Status: Acute (5) Hepatitis C Code(s): B19.20 - Unspecified viral hepatitis C without hepatic coma Status: Chronic (6) COPD (chronic obstructive pulmonary disease) Code(s): J44.9 - Chronic obstructive pulmonary disease, unspecified Status: Chronic (7) Substance abuse Code(s): F19.10 - Other psychoactive substance abuse, uncomplicated Status: Chronic (8) Diabetes Code(s): E11.9 - Type 2 diabetes mellitus without complications Status: Chronic (9) Hyperlipidemia Code(s): E78.5 - Hyperlipidemia, unspecified Status: Acute (10) Depression Code(s): F32.9 - Major depressive disorder, single episode, unspecified Status : Acute (11) Elevated blood pressure reading Code(s): R03.0 - Elevated blood-pressure reading, without diagnosis of hypertension Status: Acute <Isis Owen - 10/10/17 17:33> (1) Toe infection Code(s): L08.9 - Local infection of the skin and subcutaneous tissue, unspecified Status: Acute Plan: Status post partial amputation of the left third toe 3 weeks ago with poor follow-up Purulent discharge and malodorous on presentation No leukocytosis, patient was tachycardic on admission with a heart rate of 115 Blood cultures, wound cultures obtained in the ED Patient was started on vancomycin, Zosyn in the ED Lactic acid 1.7 on admission X-ray of the left foot with soft tissue swelling without acute bony abnormalities ESR pending We will continue vancomycin with pharmacy consult. Zosyn 4.5 mg IV every 8 hours Consulting podiatry Ordering ALANIS to assess for vascular compromise P.o. Tylenol, Percocet pain scale (2) Hyperglycemia without ketosis Code(s): R73.9 - Hyperglycemia, unspecified Status: Acute Plan: Patient found to have elevated blood glucose of 714 on admission. Anion gap of 14 Received 10 units IV insulin, 10 units SQ insulin in the ED UA with 20 ketones, 500 or greater urine glucose ABG negative for acidosis EKG on admission normal Suspecting HHS as opposed to DKA Initially plan for insulin drip, but after insulin in the ED and 2 L normal saline bolus in the ED the patient's glucose dropped to 266 Accu-Cheks per protocol We will start low-dose sliding scale on admission and continue with aggressive IV fluids per protocol BMP every 6 hours Lipase, betahydroxybutyric acid pending Potassium supplementation per protocol (3) Nausea & vomiting Code(s): R11.2 - Nausea with vomiting, unspecified Status: Acute Plan: Patient with 4-5 day history of nausea and vomiting Improved with IV Zofran in the ED No significant electrolyte abnormalities aside from the pseudohyponatremia Will continue with IV Zofran as needed IV fluids as above (4) Hyponatremia Code(s): E87.1 - Hypo-osmolality and hyponatremia Status: Acute Plan: Patient with a sodium of 122 on admission Corrected sodium of 137, showing a pseudohyponatremia due to hyperglycemia Will continue to monitor with BMPs every 6 hours (5) Hepatitis C Code(s): B19.20 - Unspecified viral hepatitis C without hepatic coma Status: Chronic Plan: Reported history of hepatitis C Patient with hepatomegaly and right upper quadrant tenderness Ordering hepatic panel, LFTs (6) COPD (chronic obstructive pulmonary disease) Code(s): J44.9 - Chronic obstructive pulmonary disease, unspecified Status: Chronic Plan: Known history of COPD Expiratory wheezes on admission Ordering scheduled duo nebs with albuterol nebulizers as needed Chest x-ray with minimal basilar density which could be atelectasis or minimal infiltrate. Currently being treated with Zosyn and vancomycin, will continue to monitor (7) Substance abuse Code(s): F19.10 - Other psychoactive substance abuse, uncomplicated Status: Chronic Plan: Reported history of crack cocaine use most recently 2 days prior UDS pending. No history of alcohol use (8) Diabetes Code(s): E11.9 - Type 2 diabetes mellitus without complications Status: Chronic Plan: Known history of insulin-dependent type 2 diabetes Controlled at home on Toujeo and Humalog injections Takes Lyrica 100 mg twice daily for peripheral neuropathy On a low-dose sliding scale for now See hyperglycemia workup and management as above Holding home medications (9) Hyperlipidemia Code(s): E78.5 - Hyperlipidemia, unspecified Status: Acute Plan: Known history of hyperlipidemia treated with atorvastatin 10 mg daily Holding home p.o. medications for now (10) Depression Code(s): F32.9 - Major depressive disorder, single episode, unspecified Status : Acute Plan: History of depression treated with Cymbalta 20 mg p.o. twice daily Holding home p.o. medications for now (11) Elevated blood pressure reading Code(s): R03.0 - Elevated blood-pressure reading, without diagnosis of hypertension Status: Acute Plan: Patient with no reported history of hypertension, she takes p.o. atenolol 25 mg at home for which she states is for tachycardia Blood pressure initially elevated on admission up to 176/97 Repeat blood pressure decreased to 144/72 Will continue p.o. atenolol 25 mg daily 0.1 mg clonidine p.o. every 6 hours as needed for blood pressures over 170/100 <Lamont Duffy - 10/10/17 16:02> - Assessment and Plan 57-year-old female with history of type 2 diabetes, COPD, depression, history of DVT in L arm, hepatitis C, and HLD who is being admitted for management of a wound infection following partial amputation of the left third toe. Also found to be hyperglycemic without ketosis. Management as above <Lamont Duffy - 10/10/17 15:35> - Attending Attestation The exam, history, and the medical decision-making described in the above note were completed with the assistance of the resident physician. I reviewed and agree with the findings presented. I attest that I had a [id number] encounter with the patient on the same day, and personally performed and documented my assessment and findings in the medical record. she was seen in the ED on admission. agree that she does not have DKA but she still warrants close watching <Isis Owen - 10/10/17 17:33> <Lamont Duffy B - Last Filed: 10/10/17 16:02> (8) Diabetes Qualifiers: Diabetes mellitus type: type 2 Diabetes mellitus mcc insulin use: with mcc use Diabetes mellitus complication status: with hyperglycemia Qualified Code(s): E11.65 - Type 2 diabetes mellitus with hyperglycemia; Z79.4 - [facility] (current) use of insulin <Isis Owen - Last Filed: 10/10/17 17:33> (8) Diabetes Qualifiers: Diabetes mellitus type: type 2 Diabetes mellitus termite helper insulin use: with termite helper use Diabetes mellitus complication status: with hyperglycemia Qualified Code(s): E11.65 - Type 2 diabetes mellitus with hyperglycemia; Z79.4 - [facility] (current) use of insulin <Lamont Duffy - Last Filed: 10/10/17 16:02> (8) Diabetes Qualifiers: Diabetes mellitus type: type 2 Diabetes mellitus mcc insulin use: with termite helper use Diabetes mellitus complication status: with hyperglycemia Qualified Code(s): E11.65 - Type 2 diabetes mellitus with hyperglycemia; Z79.4 - [facility] (current) use of insulin <Isis Owen M - Last Filed: 10/10/17 17:33> (8) Diabetes Qualifiers: Diabetes mellitus type: type 2 Diabetes mellitus termite helper insulin use: with mcc use Diabetes mellitus complication status: with hyperglycemia Qualified Code(s): E11.65 - Type 2 diabetes mellitus with hyperglycemia; 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
[2017-10-10] MEDS ORDERED: Potassium Chlor 20 mEq Premix 20 MEQ/100 ML PIGGYBACK IV.SIG PRN ×6 (12:04)
[2017-10-10] MEDS ORDERED: Potassium Chlor 40 mEq Premix 40 MEQ/100 ML PIGGYBACK IV.SIG PRN ×2 (12:04)
[2017-10-10] MEDS ORDERED: Sodium Phosphate Inj 15 MMOL in Sodium Chlor 0.9% Inj 100 ML IV.SIG PRN (12:04)
[2017-10-10] MEDS ORDERED: Dextrose 50% in Water 50 ML Vial IV.PUSH PRN ×2 (12:29→13:06)
[2017-10-10] MEDS ORDERED: Naloxone Inj 0.4 MG/ML Vial IV.PUSH PRN (12:39)
[2017-10-10] MEDS ORDERED: Acetaminophen 325 MG Tablet PO PRN (12:39)
[2017-10-10] MEDS ORDERED: Vancomycin Consult Pharmacy 1 EACH OTHER SCH (12:47)
--- NOTE | 2017-10-10 12:57 | XR ---
EXAM DATE: 10/10/2017 12:53 PM EDT AGE/SEX: 57 years / Female INDICATIONS: Foot pain. CLINICAL DATA: This is the patient's initial encounter. Patient reports that signs and symptoms have been present for 1 day and indicates a pain score of 5/10. MEDICAL/SURGICAL HISTORY: . Diabetes, COPD, smoker None. COMPARISON: [facility] [place] ([id number]), 08/03/2017. . FINDINGS: Views of left foot obtained. Amputation distal phalanx great toe. Soft tissue swelling great toe. No acute fracture. There is some subcutaneous emphysema adjacent to the heel and first digit. No periost eal reaction. Degenerative changes greatest within the first metatarsal phalangeal joint and midfoot. Small plantar calcaneal spur CONCLUSION: Amputation distal phalanx great toe. Soft tissue swelling without acute bony abnormality. Electronically signed by: Tanner Saldana MD 10/10/2017 12:56 PM EDT
--- NOTE | 2017-10-10 12:59 | XR ---
EXAM DATE: 10/10/2017 12:56 PM EDT AGE/SEX: 57 years / Female INDICATIONS: Shortness of breath. CLINICAL DATA: This is the patient's initial encounter. Patient reports that signs and symptoms have been present for 1 day and indicates a pain score of 5/10. MEDICAL/SURGICAL HISTORY: . Diabetes,COPD, smoker . COMPARISON: [facility] – [place], CHEST SINGLE AP, 08/12/2017. . FINDINGS: A single AP view of the chest demonstrates minimal density left lower lobe. Right lung clear. Heart n ormal in size. The cardiomediastinal contours are unremarkable. Osseous structures are intact. CONCLUSION: Minimal left basilar density could be atelectasis or minimal infiltrate. Electronically signed by: Tanner Saldana MD 10/10/2017 12:58 PM EDT
[2017-10-10 13:08] LABS: ABG Base Excess 3.8 mmol/L (-2-2); ABG PCO2 42 mmHg (38-42); ABG PO2 78 mmHg (61-120)
[2017-10-10] MEDS ORDERED: Bisacodyl 10 MG Supp RECTAL PRN (13:23)
[2017-10-10] MEDS: Dextrose 5%/NaCl 0.9% Inj 1,000 ML IV.CONT SCH ×2 (13:28→18:46)
[2017-10-10] MEDS: Atenolol 25 MG Tablet PO SCH (13:37)
[2017-10-10] MEDS: Sod Chloride 0.9% Inj 1,000 ML IV.CONT SCH ×3 (13:37→22:13)
[2017-10-10 13:47] LABS: Beta Hydroxybutyric Acid 2.3 mmol/L (0.00-0.39); Magnesium 1.9 mg/dL (1.5-2.5); Phosphorus 3.7 mg/dL (2.5-4.9)
[2017-10-10 13:49] LABS: Total Protein 8.1 g/dL (6.4-8.2)
[2017-10-10] MEDS ORDERED: Insulin Regular (For Infusion) 100 UNIT in Sodium Chlor 0.9% Inj 99 ML IV.CONT PRN (14:00)
[2017-10-10 14:08] LABS: Bilirubin,Urine Negative (Negative); Clarity,Urine Clear (Clear); Color,Urine Straw (Yellw/Straw); Glucose,Urine (UA) 500 or Greater mg/dL (Negative); Leukocyte Esterase,Urine Negative (Negative); Mucus,Urine Few /lpf (Occasional); Nitrite,Urine Negative (Negative); Specific Gravity,Urine 1.028 (1.002-1.035); Squamous Epithelial Cell,Urine 2 /hpf (0-5)
[2017-10-10 14:13] LABS: Amphetamine Screen,Urine Neg (Neg); Barbiturate Screen,Urine Neg (Neg); Cannabinoid Screen,Urine Neg (Neg); Cocaine Screen,Urine Pos (Neg)
[2017-10-10 14:28] LABS: Opiate Screen,Urine Neg (Neg)
--- NOTE | 2017-10-10 14:32 | US ---
EXAM DATE: 10/10/2017 2:25 PM EDT AGE/SEX: 57 years / Female INDICATIONS: Foot swelling. Foot infection. CLINICAL DATA: This is the patient's initial encounter. Patient reports that signs and symptoms have been present for 1 day and indicates a pain score of 3/10. MEDICAL/SURGICAL HISTORY: . Diabetes. Hypercholesterolemia. COPD. DVT of arm. Depression. Hepatitis. . Amputation of great toe of left foot. Bowel resection. Cholecystectomy. COMPARISON: No prior exams available for comparison. TECHNIQUE: Venous ultrasound of both lower extremities was performed from the inguinal ligament to t he proximal calf. Real-time, color Doppler and spectral tracing, compression and augmentation techni ques were used. FINDINGS: Right Leg: Normal compression of the deep venous system from the inguinal region to the proximal iris f. No echogenic clot is seen. Normal response of the venous system to augmentation and respiration. Left Leg: Normal compression of the deep venous system from the inguinal region to the proximal calf . No echogenic clot is seen. Normal response of the venous system to augmentation and respiration. Other: None. CONCLUSION: 1. The study is negative for bilateral lower extremity deep venous thrombosis. Electronically signed by: Pablo Chopra MD 10/10/2017 2:31 PM EDT
[2017-10-10] MEDS: Enoxaparin Inj 40 MG/0.4 ML Syringe SQ SCH (16:55)
[2017-10-10] MEDS: Piperacil/Tazo 4.5 GM Premix 4.5 GM/100 ML BAG IV.SIG SCH (16:58)
[2017-10-10] MEDS: Insulin NovoLOG Aspart Correctional Sugar Inj SQ SCH ×2 (18:45→22:12)
[2017-10-10 20:17] LABS: Hepatitits B Surface Antigen Nonreactive (Nonreactive)
[2017-10-10 20:53] LABS: Hepatitis A IgM Antibody Nonreactive (Nonreactive)
[2017-10-10 21:45] LABS: Calcium 7.9 mg/dL (8.5-10.1); Carbon Dioxide 26.2 meq/L (21.0-32.0); Potassium 3.3 meq/L (3.5-5.1)
[2017-10-10] MEDS: Senna/Docusate Sodium 8.6/50 MG Tablet PO SCH (22:14)
[2017-10-11 00:07] LABS: Calcium 8.1 mg/dL (8.5-10.1); Carbon Dioxide 27.2 meq/L (21.0-32.0); Potassium 3.3 meq/L (3.5-5.1)
[2017-10-11] MEDS: Piperacil/Tazo 4.5 GM Premix 4.5 GM/100 ML BAG IV.SIG SCH ×3 (00:38→18:08)
[2017-10-11] MEDS: Insulin NovoLOG Aspart Correctional Sugar Inj SQ SCH ×5 (03:31→21:57)
[2017-10-11] MEDS: Sod Chloride 0.9% Inj 1,000 ML IV.CONT SCH ×3 (03:32→09:55)
[2017-10-11] MEDS ORDERED: Chlorhexidine Gluconate 2% 1 Pack (2 Cloths) TOPICAL PRN (04:00)
[2017-10-11] MEDS: Chlorhexidine Gluconate 2% 1 Pack (2 Cloths) TOPICAL SCH (05:25)
[2017-10-11 05:41] LABS: Hematocrit 36.4 % (35.0-46.0); Hemoglobin 12.2 gm/dL (11.6-15.3); Mean Corpuscular HGB Conc 33.5 % (32.0-36.0); Mean Corpuscular Hemoglobin 26.5 pg (27.0-34.0); Mean Corpuscular Volume 79.2 fL (80.0-100.0); Mean Platelet Volume 8.8 fL (7.0-11.0); Platelet Count 346 th/mm3 (150-450); Red Cell Distribution Width 15.5 % (11.6-17.2); White Blood Count 5.5 th/mm3 (4.0-11.0)
[2017-10-11] MEDS ORDERED: Vancomycin Inj 1,250 MG in Sodium Chlor 0.9% Inj 250 ML IV.SIG SCH (06:00)
[2017-10-11 06:14] LABS: Calcium 7.8 mg/dL (8.5-10.1); Carbon Dioxide 25.3 meq/L (21.0-32.0); Potassium 4.1 meq/L (3.5-5.1)
--- NOTE | 2017-10-11 08:41 | P.HPFP ---
History of Present Illness Primary Care Physician: UNKNOWN Chief Complaint: L foot wound History of Present Illness: 57-year-old female with history of type 2 diabetes, COPD, depression, history of DVT in L arm, hepatitis C, and HLD presenting to the emergency room with a left foot wound infection. 3 weeks prior to presentation, patient had a partial amputation of the left third toe performed at [facility]. She states that she was unable to follow-up with a medical services assistant following hospital discharge due to insurance complications. Patient was seen by her PCP 2 days prior to presentation was told to come to the ED at that time , the patient stated that she needed to have her dog taking care of prior to coming here. She states that for the last 4-5 days she has had nausea and vomiting, chills, leg cramps, decreased appetite, increased thirst and increased urinary frequency. The surgical site on the left foot has had purulent drainage and swelling. She states she has also felt more confused and has had blurry vision. Denies any falls, headache, measured fevers, dysuria, malodorous urine, blood in her vomit, or diarrhea. She explained that she had become homeless on the of this month. She was sleeping in her car and had her insulin and other medications in her automobile. Insulin does not do well at high temperatures and needs to be refrigerated so she feels that her insulin stopped working. She started to feel more ill was somewhat delirious and cannot remember everything that happened before she got to the hospital and does not even remember the doctors who admitted her. However today after fluids and antibiotics she is feeling much improved. She states that she will be scheduled for an amputation of her toe on Thursday. Otherwise her main complaints were that she wanted a regular diabetic diet as she is hungry and feels better. She also feels depressed and wants to go back on her regular home medications. These were held as she was delirious and had a hyperosmolar state when she first came to the ED by she improved probably much nearer her baseline today - Diagnosis (1) Toe infection (2) Hyperglycemia without ketosis (3) Nausea & vomiting (4) Hepatitis C (5) COPD (chronic obstructive pulmonary disease) (6) Substance abuse (7) Diabetes (8) Hyperlipidemia (9) Depression (10) Elevated blood pressure reading (11) Hyponatremia Inpatient Certification: I certify that the inpatient services were ordered in accordance with Medicare regulations governing the order. This includes certification that hospital inpatient services are reasonable and necessary and in the case of services not specified as inpatient-only under 42 CFR 419.22(n), that they are appropriately provided as inpatient services in accordance to with the 2-midnight benchmark under 43 CFR 412.3(e) Estimated Total Length of Stay (Days): 3 Plans for Post Hospital Care: Not yet determined Review of Systems Constitutional: Reports daytime sleepiness, Reports weakness, Denies anorexia Eyes: Reports blurry vision, Denies loss of vision Ears, Nose, Mouth, and Throat: Denies abnormal hearing, Denies difficulty swallowing, Denies headache(s), Denies neck pain, Denies pain with swallowing Cardiovascular: Denies chest pain, Denies shortness of breath Respiratory: Denies change in phlegm color, Denies coughing up blood Gastrointestinal: Denies abdominal pain, Denies nausea Musculoskeletal: Denies abnormal walking, Denies decreased muscle mass Skin/Breast: Denies acne Neurologic: Reports confusion, Reports dizziness, Reports other visual disturbances, Denies abnormal hearing, Denies abnormal movements, Denies behavioral changes, Denies localized weakness, Denies radiating pain, Denies restless legs Psychiatric: Reports anxiety, Reports depression, Denies hearing things others do not hear, Denies hopelessness, Denies seeing things others do not see Endocrine: Reports increased thirst, Reports increased urination Hematologic/Lymphatic: Denies easy bleeding Allergic/Immunologic: Denies GI upset with certain foods PMFSH - History History Provided By: Patient - Medical History Medical History: Medical History (Last Reviewed 10/11/17 @ 10:04 by Tisha Hoskins DPM) Depression (Acute) Amputated great toe of left foot (Acute) COPD (chronic obstructive pulmonary disease) (Chronic) Diabetes (Chronic) High cholesterol (Acute) DVT (deep venous thrombosis) Hepatitis 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 - Surgical History Surgical History: Surgical History (Last Reviewed 10/11/17 @ 10:04 by Tisha Hoskins DPM) History of partial ray amputation of third toe of left foot (Acute) History of bowel resection History of cholecystectomy - Family History Family History: Family History (Last Reviewed 10/11/17 @ 10:04 by Tisha Hoskins DPM) Other Alzheimer disease Cancer Diabetes Hypertension - Tobacco History Second Hand Smoke Exposure: Yes Tobacco Use In Past 30 Days: Yes Smoking Status: Current every day smoker Tobacco Type: Cigarettes - Alcohol History How Often Do You Have a Drink Containing Alcohol: 4 or more times a week - Substance Use History Substance History: Active Abuse - Substance Use Type Crack/Cocaine Status: Active Route Used: Inhalation Reason for Use: Get High - Travel History Recent Travel in the [place] Within the Last 8 Weeks: No Recent Travel Out of the Country Within the Last 8 Weeks: No - Immunization History Tetanus Immunization: <5 Years Hx Influenza Vaccine This Season: No Medications and Allergies Active Medications: Active Medications Acetaminophen (Tylenol) 650 mg PO Q6HR PRN PRN Reason: PAIN SCALE 1 TO 2 Al Hydroxide/Mg Hydroxide (Milk Of Magnfrancesca Liq) 30 ml PO Q12H PRN PRN Reason: Mild Constipation Albuterol (Duoneb Neb (Andreas)) 1 ampul NEB Q6HR NEB ANDREAS Last Admin: 10/11/17 08:37 Dose: Not Given Albuterol (Albuterol Neb (Prn)) 2.5 mg NEB Q2HR NEB PRN PRN Reason: SHORTNESS OF BREATH Atenolol (Tenormin) 25 mg PO DAILY [facility] Last Admin: 10/10/17 13:37 Dose: 25 mg Bisacodyl (Dulcolax Supp) 10 mg RECTAL DAILY PRN PRN Reason: SEVERE CONSITIPATION Chlorhexidine Gluconate (Chlorhexidine 2% Cloth) 3 pack TOPICAL DAILY@0400 ANDREAS Stop: 10/16/17 03:59 Last Admin: 10/11/17 05:25 Dose: Not Given Chlorhexidine Gluconate (Chlorhexidine 2% Cloth) 3 pack TOPICAL DAILY@0400 PRN PRN Reason: Extra cloth needed Stop: 10/16/17 03:59 Clonidine HCl (Catapres) 0.1 mg PO Q6H PRN PRN Reason: SEE LABEL COMMENTS Dextrose (D50w Vial) 50 ml IV.PUSH UNSCH PRN PRN Reason: PER HYPOGLYCEMIA PROTOCOL Dextrose (D50w Vial) 50 ml IV.PUSH UNSCH PRN PRN Reason: PER HYPOGLYCEMIA PROTOCOL Enoxaparin Sodium (Lovenox Inj) 40 mg SQ Q24H [facility] Last Admin: 10/10/17 16:55 Dose: 40 mg Glucagon (Glucagon Inj) 1 mg OTHER PRN PRN PRN Reason: for Hypoglycemia Protocol Sodium Chloride (Ns Inj) 1,000 mls @ 250 mls/hr IV.CONT .Q4H [facility] Last Admin: 10/11/17 03:32 Dose: 250 mls/hr Sodium Phosphate 15 mmol/ (Sodium Chloride) 105 mls @ 25 mls/hr IV.SIG UNSCH PRN PRN Reason: for Phosphate Level < 1.0 Pharmacy Profile Note (Vancomycin Consult Pharmacy) 0 mls @ 0 mls/hr OTHER UNSCH ANDREAS Piperacillin/Tazobactam/Dextrose (Zosyn 4.5 Gm Premix) 4.5 gm in 100 mls @ 200 mls/hr IV.SIG Q8H [facility] Last Admin: 10/11/17 00:38 Dose: 200 mls/hr Vancomycin HCl 1,250 mg/ (Sodium Chloride) 262.5 mls @ 250 mls/hr IV.SIG Q24H [facility] Last Admin: 10/11/17 05:26 Dose: 250 mls/hr Insulin Aspart (Novolog Insulin Correctional Sugar Inj) 0 unit SQ ACHS AND 3AM ANDREAS; Protocol Last Admin: 10/11/17 03:31 Dose: 5 unit Insulin Detemir (Levemir Inj) 10 unit SQ BID [facility] Miscellaneous Information ([facility] Ordered Lab Info) 0 each OTHER ONCE ONE Stop: 10/13/17 05:46 Naloxone HCl (Narcan Inj) 0.4 mg IV.PUSH UNSCH PRN PRN Reason: SEE LABEL COMMENTS Ondansetron HCl (Zofran Odt) 4 mg PO Q6H PRN PRN Reason: NAUSEA OR VOMITING Oxycodone/Acetaminophen (Percocet 10/325 Mg) 1 tab PO Q6H PRN PRN Reason: PAIN SCALE 6 TO 10 Oxycodone/Acetaminophen (Percocet 5/325 Mg) 1 tab PO Q6H PRN PRN Reason: PAIN SCALE 3 TO 5 Senna/Docusate Sodium (Sophy-Colace) 1 tab PO BID [facility] Last Admin: 10/10/17 22:14 Dose: Not Given Sennosides (Senokot) 17.2 mg PO Q12H PRN PRN Reason: Moderate Constipation Sodium Bicarbonate (Sodium Bicarbonate 8.4% Inj) 50 meq IV.PUSH UNSCH PRN PRN Reason: for pH 6.9 to 7.0 Sodium Bicarbonate (Sodium Bicarbonate 8.4% Inj) 100 meq IV.PUSH UNSCH PRN PRN Reason: for pH less than 6.9 Allergies Allergy/AdvReac Type Severity Reaction Status Date / Time lisinopril Allergy Intermediate Cough Verified 10/10/17 08:28 phenytoin Allergy Unknown Hives Verified 10/10/17 08:28 Home Medications Medication Instructions Recorded Confirmed Type atenolol 25 mg PO DAILY 10/10/17 10/10/17 History atorvastatin 10 mg PO DAILY 10/10/17 10/10/17 History duloxetine [Cymbalta] 20 mg PO BID 10/10/17 10/10/17 History hydroxyzine pamoate 150 mg PO HS 10/10/17 10/10/17 History insulin glargine [Toujeo SoloStar 35 unit SUB-Q BID 10/10/17 10/10/17 History U-300 Insulin] insulin lispro [Humalog U-100 1 sliding scale dose SUB-Q UD 10/10/17 10/10/17 History Insulin] insulin lispro [Humalog U-100 10 unit SUB-Q TID 10/10/17 10/10/17 History Insulin] oxycodone-acetaminophen [Percocet] 1 tab PO Q4-6H PRN 10/10/17 10/10/17 History pregabalin [Lyrica] 100 mg PO BID 10/10/17 10/10/17 History Exam Vital signs: Vital Signs 10/10/17 10:00 10/10/17 12:51 10/10/17 15:03 Temperature 98.3 F Pulse Rate 99 H 91 H 79 Respiratory Rate 17 15 16 Blood Pressure 144/72 H 141/67 H 126/58 L Pulse Oximetry 98 95 97 10/10/17 17:02 10/10/17 20:00 10/11/17 00:00 Temperature 98.6 F 99.2 F Pulse Rate 74 78 82 Respiratory Rate 22 20 20 Blood Pressure 145/76 H 119/57 L 127/60 Pulse Oximetry 96 94 L 98 10/11/17 04:00 10/11/17 08:00 Temperature 98.3 F 98.5 F Pulse Rate 75 79 Respiratory Rate 18 20 Blood Pressure 140/63 150/76 H Pulse Oximetry 95 94 L Intake & Output 10/10/17 10/11/17 10/11/17 18:59 06:59 18:59 Intake Total 2200 / 2200 2240 / 2240 Balance 2200 / 2200 2240 / 2240 Weight 70.76 kg 73.4 kg Intake: IV 2200 / 2200 1999 / 1999 NS Inj 1,000 ML @ 250 mls/hr IV 1000 / 1000 1999 / 1999 .CONT .Q4H ANDREAS Rx#:[id number] Zosyn 4.5 GM Premix 4.5 gm In 200 / 200 100 ml @ 200 mls/hr IV.SIG Q8H ANDREAS Rx#:[id number] NS Inj 1,000 ML @ Wide Open IV. 1000 / 1000 SIG BOLUS ONE Rx#:[id number] Oral 240 / 240 Other: # Voids 1 1 Weight On Admission 71.7 kg - Constitutional no acute distress, average body habitus, cooperative - Routine HEENT Exam Head: Present: normocephalic, atraumatic. Absent: laceration, facial swelling Eye: Present: EOMI. Absent: periorbital ecchymosis, periorbital swelling ENT: Present: mucous membranes moist, external ear normal. Absent: septal deviation - Routine Neck Exam Present: supple, full ROM, trachea midline - Routine Respiratory Exam Present: CTA bilaterally. Absent: accessory muscle use, decreased breath sounds , prolonged expiratory phase, rales, respiratory distress, rhonchi - Routine Cardiovascular Exam Present: RRR. Absent: murmur, gallop, rubs - Routine Abdominal Exam Present: soft, normoactive bowel sounds. Absent: tenderness, distended, rebound - Routine Extremities Exam Absent: cyanosis, clubbing, edema, normal capillary refill, calf tenderness - Routine Skin Exam Present: intact, cyanosis, erythema. Absent: petechiae, scars, wounds, rash - Routine Neurological Exam Present: alert, oriented X3, moving all extremities, normal tone. Absent: sensory deficit, motor deficit, altered mental status, clonus Results - Labs Result diagrams: 10/11/17 05:27 10/11/17 12:53 Abnormal lab results 10/10/17 10/10/17 10/10/17 Range/Units 08:50 08:50 08:50 MCV (80.0-100.0) fL MCH 26.3 L (27.0-34.0) pg Neut % (Auto) 74.8 H (16.0-70.0) % ABG pH (7.380-7.420) ABG HCO3 (22-26) mmol/L ABG Base Excess (-2-2) mmol/L Hemoglobin (12.0-16.0) G/DL Sodium 122 L* (136-145) meq/L Potassium (3.5-5.1) meq/L Chloride 83 L (98-107) meq/L Creatinine 1.29 H (0.50-1.00) mg/dL Estimated GFR 43 L (>89) mL/min POC Glucose (68-110) mg/dl Random Glucose 714 H* (74-106) mg/dL Calcium (8.5-10.1) mg/dL AST 14 L (15-37) U/L Alkaline Phosphatase 125 H (45-117) U/L Albumin 3.0 L (3.4-5.0) g/dL Beta-Hydroxybutyric Acd 2.30 H (0.00-0.39) mmol/L Urine Mucus (Occasional) /lpf Urine Cocaine Screen (Neg) 10/10/17 10/10/17 10/10/17 Range/Units 12:03 12:49 13:08 MCV (80.0-100.0) fL MCH (27.0-34.0) pg Neut % (Auto) (16.0-70.0) % ABG pH 7.43 H (7.380-7.420) ABG HCO3 28 H (22-26) mmol/L ABG Base Excess 3.8 H (-2-2) mmol/L Hemoglobin 11.6 L (12.0-16.0) G/DL Sodium (136-145) meq/L Potassium (3.5-5.1) meq/L Chloride (98-107) meq/L Creatinine (0.50-1.00) mg/dL Estimated GFR (>89) mL/min POC Glucose 266 H (68-110) mg/dl Random Glucose (74-106) mg/dL Calcium (8.5-10.1) mg/dL AST (15-37) U/L Alkaline Phosphatase (45-117) U/L Albumin (3.4-5.0) g/dL Beta-Hydroxybutyric Acd (0.00-0.39) mmol/L Urine Mucus (Occasional) /lpf Urine Cocaine Screen Pos H (Neg) 10/10/17 10/10/17 10/10/17 Range/Units 13:08 15:02 17:01 MCV (80.0-100.0) fL MCH (27.0-34.0) pg Neut % (Auto) (16.0-70.0) % ABG pH (7.380-7.420) ABG HCO3 (22-26) mmol/L ABG Base Excess (-2-2) mmol/L Hemoglobin (12.0-16.0) G/DL Sodium (136-145) meq/L Potassium (3.5-5.1) meq/L Chloride (98-107) meq/L Creatinine (0.50-1.00) mg/dL Estimated GFR (>89) mL/min POC Glucose 198 H 182 H (68-110) mg/dl Random Glucose (74-106) mg/dL Calcium (8.5-10.1) mg/dL AST (15-37) U/L Alkaline Phosphatase (45-117) U/L Albumin (3.4-5.0) g/dL Beta-Hydroxybutyric Acd (0.00-0.39) mmol/L Urine Mucus Few H (Occasional) /lpf Urine Cocaine Screen (Neg) 10/10/17 10/10/17 10/10/17 Range/Units 20:52 21:46 23:00 MCV (80.0-100.0) fL MCH (27.0-34.0) pg Neut % (Auto) (16.0-70.0) % ABG pH (7.380-7.420) ABG HCO3 (22-26) mmol/L ABG Base Excess (-2-2) mmol/L Hemoglobin (12.0-16.0) G/DL Sodium (136-145) meq/L Potassium 3.3 L 3.3 L (3.5-5.1) meq/L Chloride (98-107) meq/L Creatinine (0.50-1.00) mg/dL Estimated GFR 65 L 68 L (>89) mL/min POC Glucose 307 H (68-110) mg/dl Random Glucose 246 H D 273 H (74-106) mg/dL Calcium 7.9 L D 8.1 L (8.5-10.1) mg/dL AST (15-37) U/L Alkaline Phosphatase (45-117) U/L Albumin (3.4-5.0) g/dL Beta-Hydroxybutyric Acd (0.00-0.39) mmol/L Urine Mucus (Occasional) /lpf Urine Cocaine Screen (Neg) 10/11/17 10/11/17 10/11/17 Range/Units 03:19 05:27 05:27 MCV 79.2 L (80.0-100.0) fL MCH 26.5 L (27.0-34.0) pg Neut % (Auto) (16.0-70.0) % ABG pH (7.380-7.420) ABG HCO3 (22-26) mmol/L ABG Base Excess (-2-2) mmol/L Hemoglobin (12.0-16.0) G/DL Sodium (136-145) meq/L Potassium (3.5-5.1) meq/L Chloride (98-107) meq/L Creatinine (0.50-1.00) mg/dL Estimated GFR 68 L (>89) mL/min POC Glucose 280 H (68-110) mg/dl Random Glucose 284 H (74-106) mg/dL Calcium 7.8 L (8.5-10.1) mg/dL AST (15-37) U/L Alkaline Phosphatase (45-117) U/L Albumin (3.4-5.0) g/dL Beta-Hydroxybutyric Acd (0.00-0.39) mmol/L Urine Mucus (Occasional) /lpf Urine Cocaine Screen (Neg) Short CBC 10/10/17 10/11/17 Range/Units 08:50 05:27 WBC 6.8 5.5 (4.0-11.0) th/mm3 Hgb 12.6 12.2 (11.6-15.3) gm/dL Hct 38.4 36.4 (35.0-46.0) % Plt Count 396 346 (150-450) th/mm3 [facility] 10/10/17 10/10/17 10/10/17 08:50 20:52 23:00 Sodium 122 L* 139 D 138 Potassium 3.7 3.3 L 3.3 L Chloride 83 L 103 D 102 Carbon Dioxide 24.9 26.2 27.2 BUN 12 7 7 Creatinine 1.29 H 0.90 0.86 Calcium 9.4 7.9 L D 8.1 L 10/11/17 05:27 Sodium 139 Potassium 4.1 D Chloride 106 Carbon Dioxide 25.3 BUN 7 Creatinine 0.86 Calcium 7.8 L Liver Function 10/10/17 10/10/17 Range/Units 08:50 08:50 Total Bilirubin Cancelled 0.6 Direct Bilirubin Cancelled 0.2 AST Cancelled 14 L ALT Cancelled 13 Alkaline Phosphatase Cancelled 125 H Albumin Cancelled 3.0 L Urine 10/10/17 Range/Units 13:08 Urine Color Straw (Yellw/Straw) Urine Clarity Clear (Clear) Urine pH 6.0 (5.0-8.5) Ur Specific Blevins 1.028 (1.002-1.035) Urine Protein Negative (Neg-Trace) mg/dL Urine Glucose (UA) 500 or greater (Negative) mg/dL - Imaging Impressions Chest X-Ray 10/10/17 00:00 CONCLUSION: Minimal left basilar density could be atelectasis or minimal infiltrate. Foot X-Ray 10/10/17 00:00 CONCLUSION: Amputation distal phalanx great toe. Soft tissue swelling without acute bony abnormality. Venous Doppler Study 10/10/17 00:00 CONCLUSION: 1. The study is negative for bilateral lower extremity deep venous thrombosis. Caprini VTE Risk Assessment Caprini VTE Risk Assessment: Moderate/High Risk (score >= 2) Caprini Risk Assessment Model: Point Value = 1 Point Value = 2 Point Value = 3 Point Value = 5 Age 41-60 Minor surgery BMI > 25 kg/m2 Swollen legs Varicose veins or History of unexplained or recurrent spontaneous Oral contraceptives or hormone replacement Sepsis (< 1 month) Serious lung disease, including pneumonia (< 1 month) Abnormal pulmonary function Acute myocardial infarction Congestive heart failure (< 1 month) History of inflammatory bowel disease Medical patient at bed rest Age 61-74 Arthroscopic surgery Major open surgery (> 45 min) Laparoscopic surgery (> 45 min) Malignancy Confined to bed (> 72 hours) Immobilizing plaster cast Central venous access Age >= 75 History of VTE Family history of VTE Factor V Leiden Prothrombin [id number] Lupus anticoagulant Anticardiolipin antibodies Elevated serum homocysteine Heparin-induced thrombocytopenia Other congenital or acquired thrombophilia Stroke (< 1 month) Elective arthroplasty Hip, pelvis, or leg fracture Acute spinal cord injury (< 1 month) Prophylaxis Regimen: Total Risk Factor Score Risk Level Prophylaxis Regimen 0-1 Low Early ambulation 2 Moderate Order ONE of the following: *Sequential Compression Device (SCD) *Heparin 5000 units SQ BID 3-4 Higher Order ONE of the following medications: *Heparin 5000 units SQ TID *Enoxaparin/Lovenox 40 mg SQ daily (WT < 150 kg, CrCl > 30 mL/min) *Enoxaparin/Lovenox 30 mg SQ daily (WT < 150 kg, CrCl > 10-29 mL/min) *Enoxaparin/Lovenox 30 mg SQ BID (WT < 150 kg, CrCl > 30 mL/min) AND/OR *Sequential Compression Device (SCD) 5 or more Highest Order ONE of the following medications: *Heparin 5000 units SQ TID (Preferred with Epidurals) *Enoxaparin/Lovenox 40 mg SQ daily (WT < 150 kg, CrCl > 30 mL/min) *Enoxaparin/Lovenox 30 mg SQ daily (WT < 150 kg, CrCl > 10-29 mL/min) *Enoxaparin/Lovenox 30 mg SQ BID (WT < 150 kg, CrCl > 30 mL/min) AND *Sequential Compression Device (SCD) Assessment and Plan - Assessment (1) Toe infection Code(s): L08.9 - Local infection of the skin and subcutaneous tissue, unspecified Status: Acute Plan: Status post partial amputation of the left third toe 3 weeks ago with poor follow-up Purulent discharge and malodorous on presentation No leukocytosis, patient was tachycardic on admission with a heart rate of 115 Blood cultures, wound cultures obtained in the ED Patient was started on vancomycin, Zosyn in the ED Lactic acid 1.7 on admission X-ray of the left foot with soft tissue swelling without acute bony abnormalities ESR pending We will continue vancomycin with pharmacy consult. Zosyn 4.5 mg IV every 8 hours Consulting podiatry Ordering ALANIS to assess for vascular compromise P.o. Tylenol, Percocet pain scale (2) Hyperglycemia without ketosis Code(s): R73.9 - Hyperglycemia, unspecified Status: Acute Plan: Patient found to have elevated blood glucose of 714 on admission. Anion gap of 14 Received 10 units IV insulin, 10 units SQ insulin in the ED UA with 20 ketones, 500 or greater urine glucose ABG negative for acidosis EKG on admission normal Suspecting HHS as opposed to DKA Initially plan for insulin drip, but after insulin in the ED and 2 L normal saline bolus in the ED the patient's glucose dropped to 266 Accu-Cheks per protocol We will start low-dose sliding scale on admission and continue with aggressive IV fluids per protocol BMP every 6 hours Lipase, betahydroxybutyric acid pending Potassium supplementation per protocol She is doing very well today we will Hep-Lock her IV and allow her to eat a regular diabetic diet and she has been started on some long-term subcu insulin along with the sliding scale. (3) Nausea & vomiting Code(s): R11.2 - Nausea with vomiting, unspecified Status: Resolved Plan: Patient with 4-5 day history of nausea and vomiting Improved with IV Zofran in the ED No significant electrolyte abnormalities aside from the pseudohyponatremia Will continue with IV Zofran as needed IV fluids as above She is better today and wants to eat and drink since she is getting over her metabolic problem and hyperosmolar state. (4) Hepatitis C Code(s): B19.20 - Unspecified viral hepatitis C without hepatic coma Status: Chronic Plan: Reported history of hepatitis C Patient with hepatomegaly and right upper quadrant tenderness Ordering hepatic panel, LFTs She will need to have a stable life and establish with a physician long-term in order to get her p.o. treatment for hepatitis C. (5) COPD (chronic obstructive pulmonary disease) Code(s): J44.9 - Chronic obstructive pulmonary disease, unspecified Status: Chronic Plan: Known history of COPD Expiratory wheezes on admission Ordering scheduled duo nebs with albuterol nebulizers as needed Chest x-ray with minimal basilar density which could be atelectasis or minimal infiltrate. Currently being treated with Zosyn and vancomycin, will continue to monitor She is using her incentive spirometer and her lungs sound well today. (6) Substance abuse Code(s): F19.10 - Other psychoactive substance abuse, uncomplicated Status: Chronic Plan: Reported history of crack cocaine use most recently 2 days prior UDS pending. No history of alcohol use (7) Diabetes Code(s): E11.9 - Type 2 diabetes mellitus without complications Status: Chronic Plan: Known history of insulin-dependent type 2 diabetes Controlled at home on Toujeo and Humalog injections Takes Lyrica 100 mg twice daily for peripheral neuropathy On a low-dose sliding scale for now See hyperglycemia workup and management as above Holding home medications Starting on 10 units twice daily of long-acting insulin. (8) Hyperlipidemia Code(s): E78.5 - Hyperlipidemia, unspecified Status: Acute Plan: Known history of hyperlipidemia treated with atorvastatin 10 mg daily Holding home p.o. medications for now (9) Depression Code(s): F32.9 - Major depressive disorder, single episode, unspecified Status : Acute Plan: History of depression treated with Cymbalta 20 mg p.o. twice daily Holding home p.o. medications for now (10) Elevated blood pressure reading Code(s): R03.0 - Elevated blood-pressure reading, without diagnosis of hypertension Status: Acute Plan: Patient with no reported history of hypertension, she takes p.o. atenolol 25 mg at home for which she states is for tachycardia Blood pressure initially elevated on admission up to 176/97 Repeat blood pressure decreased to 144/72 Will continue p.o. atenolol 25 mg daily 0.1 mg clonidine p.o. every 6 hours as needed for blood pressures over 170/100 (11) Hyponatremia Code(s): E87.1 - Hypo-osmolality and hyponatremia Status: Resolved Plan: Patient with a sodium of 122 on admission Corrected sodium of 137, showing a pseudohyponatremia due to hyperglycemia Will continue to monitor with BMPs every 6 hours - Assessment and Plan 57-year-old female with history of type 2 diabetes, COPD, depression, history of DVT in L arm, hepatitis C, and HLD who is being admitted for management of a wound infection following partial amputation of the left third toe. Also found to be hyperglycemic without ketosis. 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
--- NOTE | 2017-10-11 09:45 | XR ---
EXAM DATE: 10/11/2017 9:26 AM EDT AGE/SEX: 57 years / Female INDICATIONS: . Shortness of breath. CLINICAL DATA: This is the patient's initial encounter. Patient reports that signs and symptoms have been present for 1 day and indicates a pain score of 0/10. MEDICAL/SURGICAL HISTORY: Diabetes, chronic obstructive pulmonary disease and smoking. None. COMPARISON: [facility] [place] 1[place] SING[place] AP, 10/10/2017. . FINDINGS: PA and lateral views of the chest demonstrate the lungs to be symmetrically aerated without evidence of mass, infiltrate or effusion. The cardiomediastinal contours are unremarkable. Osseous structures are intact. There are overlying electrocardiogram leads. CONCLUSION: No acute cardiopulmonary disease. Electronically signed by: Krunal Lomeli MD 10/11/2017 9:44 AM EDT
[2017-10-11] MEDS: Senna/Docusate Sodium 8.6/50 MG Tablet PO SCH ×2 (09:48→21:57)
[2017-10-11] MEDS: Insulin Detemir Inj 1,000 UNIT/10 ML Vial SQ SCH ×2 (09:54→21:57)
[2017-10-11] MEDS: Atenolol 25 MG Tablet PO SCH (09:54)
[2017-10-11] MEDS: oxyCODONE/Acetaminophen 10/325 Tablet PO PRN ×2 (10:06→18:07)
--- NOTE | 2017-10-11 10:09 | P.CONPOD ---
History of Present Illness Service: Foot and ankle surgery/podiatry Consult date: 10/11/17 Requesting Physician: Tisha Hoskins Reason for Consult: Left foot infection Primary Care Provider: UNKNOWN Chief Complaint: L foot wound History of Present Illness: Podiatry consulted for this 57-year-old female, COPD, with history of type 2 diabetes depression, history of DVT in left arm, hepatitis C, and hyperlipidemia who presents to the emergency room with a left foot wound infection. Patient states about 3 weeks ago she had a partial rotation of the left third toe performed at [facility] by Dr. Jason Jade. Patient states she was told she was unable to follow-up with him secondary to him not taking her insurance. She reports nausea and vomiting for the past 4-5 days leg cramps decreased appetite. Denies any chest pain or shortness of breath. Review of Systems Constitutional: Reports body ache(s), Reports chills, Reports fever(s), Reports headache(s), Denies increased appetite Eyes: Reports blurry vision Ears, Nose, Mouth, and Throat: Denies abnormal hearing Cardiovascular: Reports foot swelling, Denies chest pain, Denies shortness of breath with activity Respiratory: Denies cough Gastrointestinal: Reports nausea, Reports vomiting, Denies abdominal pain PMFSH - History History Provided By: Patient - Medical History Medical History: Medical History (Last Reviewed 10/11/17 @ 10:04 by Tisha Hoskins DPM) Depression (Acute) Amputated great toe of left foot (Acute) COPD (chronic obstructive pulmonary disease) (Chronic) Diabetes (Chronic) High cholesterol (Acute) DVT (deep venous thrombosis) Hepatitis 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 - Surgical History Surgical History: Surgical History (Last Reviewed 10/11/17 @ 10:04 by Tisha Hoskins DPM) History of partial ray amputation of third toe of left foot (Acute) History of bowel resection History of cholecystectomy - Family History Family History: Family History (Last Reviewed 10/11/17 @ 10:04 by Tisha Hoskins DPM) Other Alzheimer disease Cancer Diabetes Hypertension - Tobacco History Second Hand Smoke Exposure: Yes Tobacco Use In Past 30 Days: Yes Smoking Status: Current every day smoker Tobacco Type: Cigarettes - Alcohol History How Often Do You Have a Drink Containing Alcohol: 4 or more times a week - Substance Use History Substance History: Active Abuse - Substance Use Type Crack/Cocaine Status: Active Route Used: Inhalation Reason for Use: Get High - Travel History Recent Travel in the [place] Within the Last 8 Weeks: No Recent Travel Out of the Country Within the Last 8 Weeks: No - Immunization History Tetanus Immunization: <5 Years Hx Influenza Vaccine This Season: No Medications and Allergies Active Medications: Active Medications Acetaminophen (Tylenol) 650 mg PO Q6HR PRN PRN Reason: PAIN SCALE 1 TO 2 Al Hydroxide/Mg Hydroxide (Milk Of Magnfrancesca Liq) 30 ml PO Q12H PRN PRN Reason: Mild Constipation Albuterol (Duoneb Neb (Andreas)) 1 ampul NEB Q6HR NEB [facility] Last Admin: 10/11/17 08:37 Dose: Not Given Albuterol (Albuterol Neb (Prn)) 2.5 mg NEB Q2HR NEB PRN PRN Reason: SHORTNESS OF BREATH Atenolol (Tenormin) 25 mg PO DAILY [facility] Last Admin: 10/11/17 09:54 Dose: 25 mg Bisacodyl (Dulcolax Supp) 10 mg RECTAL DAILY PRN PRN Reason: SEVERE CONSITIPATION Chlorhexidine Gluconate (Chlorhexidine 2% Cloth) 3 pack TOPICAL DAILY@0400 [facility] Stop: 10/16/17 03:59 Last Admin: 10/11/17 05:25 Dose: Not Given Chlorhexidine Gluconate (Chlorhexidine 2% Cloth) 3 pack TOPICAL DAILY@0400 PRN PRN Reason: Extra cloth needed Stop: 10/16/17 03:59 Clonidine HCl (Catapres) 0.1 mg PO Q6H PRN PRN Reason: SEE LABEL COMMENTS Dextrose (D50w Vial) 50 ml IV.PUSH UNSCH PRN PRN Reason: PER HYPOGLYCEMIA PROTOCOL Dextrose (D50w Vial) 50 ml IV.PUSH UNSCH PRN PRN Reason: PER HYPOGLYCEMIA PROTOCOL Enoxaparin Sodium (Lovenox Inj) 40 mg SQ Q24H [facility] Last Admin: 10/10/17 16:55 Dose: 40 mg Glucagon (Glucagon Inj) 1 mg OTHER PRN PRN PRN Reason: for Hypoglycemia Protocol Sodium Chloride (Ns Inj) 1,000 mls @ 250 mls/hr IV.CONT .Q4H [facility] Last Admin: 10/11/17 09:55 Dose: 250 mls/hr Sodium Phosphate 15 mmol/ (Sodium Chloride) 105 mls @ 25 mls/hr IV.SIG UNSCH PRN PRN Reason: for Phosphate Level < 1.0 Pharmacy Profile Note (Vancomycin Consult Pharmacy) 0 mls @ 0 mls/hr OTHER UNSCH [facility] Piperacillin/Tazobactam/Dextrose (Zosyn 4.5 Gm Premix) 4.5 gm in 100 mls @ 200 mls/hr IV.SIG Q8H [facility] Last Admin: 10/11/17 09:54 Dose: 200 mls/hr Vancomycin HCl 1,250 mg/ (Sodium Chloride) 262.5 mls @ 250 mls/hr IV.SIG Q24H [facility] Last Admin: 10/11/17 05:26 Dose: 250 mls/hr Insulin Aspart (Novolog Insulin Correctional Sugar Inj) 0 unit SQ ACHS AND 3AM [facility]; Protocol Last Admin: 10/11/17 09:54 Dose: 9 unit Insulin Detemir (Levemir Inj) 10 unit SQ BID [facility] Last Admin: 10/11/17 09:54 Dose: 10 unit Miscellaneous Information ([facility] Ordered Lab Info) 0 each OTHER ONCE ONE Stop: 10/13/17 05:46 Naloxone HCl (Narcan Inj) 0.4 mg IV.PUSH UNSCH PRN PRN Reason: SEE LABEL COMMENTS Ondansetron HCl (Zofran Odt) 4 mg PO Q6H PRN PRN Reason: NAUSEA OR VOMITING Oxycodone/Acetaminophen (Percocet 10/325 Mg) 1 tab PO Q6H PRN PRN Reason: PAIN SCALE 6 TO 10 Oxycodone/Acetaminophen (Percocet 5/325 Mg) 1 tab PO Q6H PRN PRN Reason: PAIN SCALE 3 TO 5 Senna/Docusate Sodium (Sophy-Colace) 1 tab PO BID [facility] Last Admin: 10/11/17 09:48 Dose: Not Given Sennosides (Senokot) 17.2 mg PO Q12H PRN PRN Reason: Moderate Constipation Sodium Bicarbonate (Sodium Bicarbonate 8.4% Inj) 50 meq IV.PUSH UNSCH PRN PRN Reason: for pH 6.9 to 7.0 Sodium Bicarbonate (Sodium Bicarbonate 8.4% Inj) 100 meq IV.PUSH UNSCH PRN PRN Reason: for pH less than 6.9 Allergies Allergy/AdvReac Type Severity Reaction Status Date / Time lisinopril Allergy Intermediate Cough Verified 10/10/17 08:28 phenytoin Allergy Unknown Hives Verified 10/10/17 08:28 Home Medications Medication Instructions Recorded Confirmed Type atenolol 25 mg PO DAILY 10/10/17 10/10/17 History atorvastatin 10 mg PO DAILY 10/10/17 10/10/17 History duloxetine [Cymbalta] 20 mg PO BID 10/10/17 10/10/17 History hydroxyzine pamoate 150 mg PO HS 10/10/17 10/10/17 History insulin glargine [Toujeo SoloStar 35 unit SUB-Q BID 10/10/17 10/10/17 History U-300 Insulin] insulin lispro [Humalog U-100 1 sliding scale dose SUB-Q UD 10/10/17 10/10/17 History Insulin] insulin lispro [Humalog U-100 10 unit SUB-Q TID 10/10/17 10/10/17 History Insulin] oxycodone-acetaminophen [Percocet] 1 tab PO Q4-6H PRN 10/10/17 10/10/17 History pregabalin [Lyrica] 100 mg PO BID 10/10/17 10/10/17 History Physical Exam Vital signs: Vital Signs 10/10/17 12:51 10/10/17 15:03 10/10/17 17:02 Temperature 98.3 F Pulse Rate 91 H 79 74 Respiratory Rate 15 16 22 Blood Pressure 141/67 H 126/58 L 145/76 H Pulse Oximetry 95 97 96 10/10/17 20:00 10/11/17 00:00 10/11/17 04:00 Temperature 98.6 F 99.2 F 98.3 F Pulse Rate 78 82 75 Respiratory Rate 20 20 18 Blood Pressure 119/57 L 127/60 140/63 Pulse Oximetry 94 L 98 95 10/11/17 08:00 Temperature 98.5 F Pulse Rate 79 Respiratory Rate 20 Blood Pressure 150/76 H Pulse Oximetry 94 L Intake & Output 10/10/17 10/11/17 10/11/17 18:59 06:59 18:59 Intake Total 2200 / 2200 2340 / 2340 1000 / 1000 Balance 2200 / 2200 2340 / 2340 1000 / 1000 Weight 70.76 kg 73.4 kg Intake: IV 2200 / 2200 2100 / 2100 1000 / 1000 NS Inj 1,000 ML @ 250 mls/hr IV 1000 / 1000 2000 / 2000 1000 / 1000 .CONT .Q4H [facility] Rx#:[id number] Zosyn 4.5 GM Premix 4.5 gm In 200 / 200 100 / 100 100 ml @ 200 mls/hr IV.SIG Q8H [facility] Rx#:[id number] NS Inj 1,000 ML @ Wide Open IV. 1000 / 1000 SIG BOLUS ONE Rx#:[id number] Oral 240 / 240 Other: # Voids 1 1 Weight On Admission 71.7 kg Narrative: GENERAL: This is a well-nourished, well-developed patient, in no apparent distress. SKIN: HEAD: Atraumatic. EYES: Pupils equal round and reactive. ENT: Airway patent. NECK: Trachea midline. RESPIRATORY: Nonlabored breathing. MUSCULOSKELETAL:. Negative Homans sign bilaterally. NEUROLOGICAL: Awake and alert. 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 Lower extremity physical exam: Vascular: Dorsalis pedis 2/4, posterior tibial 2/4. Capillary refill time within normal limits to digits X5 bilateral foot. Edema present left foot Neuro: Gross sensation intact to bilateral lower extremity. Pinpoint sensation decreased. No hyperalgesia noted to bilateral lower extremity Dermatology: Left third digit with open wound probing to bone with associated erythema and edema and serous drainage. Submetatarsal 2 ulceration noted with granular base hyperkeratotic borders no surrounding erythema and no drainage. Left foot heel ulceration with probe to bone no associated erythema or edema macerated borders with hyperkeratosis present. Musculoskeletal: No tenderness to palpation. left partial hallux amputation noted. Left partial third digit amputation noted Results - Labs CBC & Chem 7: 10/11/17 05:27 10/11/17 05:27 Laboratory Results - last 24 hr 10/10/17 10/10/17 10/10/17 08:50 08:50 08:50 WBC RBC Hgb Hct MCV MCH MCHC RDW Plt Count MPV ESR 16 Puncture Site Patient Temperature O2 Saturation ABG pH ABG pCO2 ABG pO2 ABG HCO3 ABG O2 Content ABG Base Excess ABG Methemoglobin Oscar Test Hemoglobin Carboxyhemoglobin Inspired O2 Critical Value Sodium Potassium Chloride Carbon Dioxide Anion Gap BUN Creatinine Estimated GFR POC Glucose Random Glucose Calcium Phosphorus Magnesium Total Bilirubin Cancelled Direct Bilirubin Cancelled Indirect Bilirubin Cancelled AST Cancelled ALT Cancelled Alkaline Phosphatase Cancelled Total Protein Cancelled Albumin Cancelled Lipase Cancelled Beta-Hydroxybutyric Acd Urine Color Urine Clarity Urine pH Ur Specific [employer] Urine Protein Urine Glucose (UA) Urine Ketones Urine Occult Blood Urine Nitrate Urine Bilirubin Urine Urobilinogen Ur Leukocyte Esterase Urine RBC Urine WBC Ur Squamous Epith Cells Urine Mucus Micro UA Comment Urine Culture Comments Urine Opiates Screen Ur Barbiturates Screen Ur Amphetamines Screen U Benzodiazepines Scrn Urine Cocaine Screen U Cannabinoids Screen Hepatitis A IgM Ab Hep Bs Antigen Hep B Core IgM Ab Hep C IgG Ab 10/10/17 10/10/17 10/10/17 08:50 12:03 12:49 WBC RBC Hgb Hct MCV MCH MCHC RDW Plt Count MPV ESR Puncture Site Right radial Patient Temperature 98.6 O2 Saturation 92 ABG pH 7.43 H ABG pCO2 42 ABG pO2 78 ABG HCO3 28 H ABG O2 Content 15.1 ABG Base Excess 3.8 H ABG Methemoglobin 0.4 Oscar Test Present Hemoglobin 11.6 L Carboxyhemoglobin 3.7 Inspired O2 21 Critical Value No Sodium Potassium Chloride Carbon Dioxide Anion Gap BUN Creatinine Estimated GFR POC Glucose 266 H Random Glucose Calcium Phosphorus 3.7 Magnesium 1.9 Total Bilirubin 0.6 Direct Bilirubin 0.2 Indirect Bilirubin 0.4 AST 14 L ALT 13 Alkaline Phosphatase 125 H Total Protein 8.1 Albumin 3.0 L Lipase 173 Beta-Hydroxybutyric Acd 2.30 H Urine Color Urine Clarity Urine pH Ur Specific [employer] Urine Protein Urine Glucose (UA) Urine Ketones Urine Occult Blood Urine Nitrate Urine Bilirubin Urine Urobilinogen Ur Leukocyte Esterase Urine RBC Urine WBC Ur Squamous Epith Cells Urine Mucus Micro UA Comment Urine Culture Comments Urine Opiates Screen Ur Barbiturates Screen Ur Amphetamines Screen U Benzodiazepines Scrn Urine Cocaine Screen U Cannabinoids Screen Hepatitis A IgM Ab Hep Bs Antigen Hep B Core IgM Ab Hep C IgG Ab 10/10/17 10/10/17 10/10/17 13:08 13:08 15:02 WBC RBC Hgb Hct MCV MCH MCHC RDW Plt Count MPV ESR Puncture Site Patient Temperature O2 Saturation ABG pH ABG pCO2 ABG pO2 ABG HCO3 ABG O2 Content ABG Base Excess ABG Methemoglobin Oscar Test Hemoglobin Carboxyhemoglobin Inspired O2 Critical Value Sodium Potassium Chloride Carbon Dioxide Anion Gap BUN Creatinine Estimated GFR POC Glucose 198 H Random Glucose Calcium Phosphorus Magnesium Total Bilirubin Direct Bilirubin Indirect Bilirubin AST ALT Alkaline Phosphatase Total Protein Albumin Lipase Beta-Hydroxybutyric Acd Urine Color Straw Urine Clarity Clear Urine pH 6.0 Ur Specific [employer] 1.028 Urine Protein Negative Urine Glucose (UA) 500 or greater Urine Ketones 20 Urine Occult Blood Negative Urine Nitrate Negative Urine Bilirubin Negative Urine Urobilinogen Less than 2 Ur Leukocyte Esterase Negative Urine RBC Less than 1 Urine WBC Less than 1 Ur Squamous Epith Cells 2 Urine Mucus Few H Micro UA Comment Culture not ind Urine Culture Comments Culture not ind Urine Opiates Screen Neg Ur Barbiturates Screen Neg Ur Amphetamines Screen Neg U Benzodiazepines Scrn Neg Urine Cocaine Screen Pos H U Cannabinoids Screen Neg Hepatitis A IgM Ab Hep Bs Antigen Hep B Core IgM Ab Hep C IgG Ab 10/10/17 10/10/17 10/10/17 17:01 18:50 20:52 WBC RBC Hgb Hct MCV MCH MCHC RDW Plt Count MPV ESR Puncture Site Patient Temperature O2 Saturation ABG pH ABG pCO2 ABG pO2 ABG HCO3 ABG O2 Content ABG Base Excess ABG Methemoglobin Oscar Test Hemoglobin Carboxyhemoglobin Inspired O2 Critical Value Sodium 139 D Potassium 3.3 L Chloride 103 D Carbon Dioxide 26.2 Anion Gap 10 BUN 7 Creatinine 0.90 Estimated GFR 65 L POC Glucose 182 H Random Glucose 246 H D Calcium 7.9 L D Phosphorus Magnesium Total Bilirubin Direct Bilirubin Indirect Bilirubin AST ALT Alkaline Phosphatase Total Protein Albumin Lipase Beta-Hydroxybutyric Acd Urine Color Urine Clarity Urine pH Ur Specific [employer] Urine Protein Urine Glucose (UA) Urine Ketones Urine Occult Blood Urine Nitrate Urine Bilirubin Urine Urobilinogen Ur Leukocyte Esterase Urine RBC Urine WBC Ur Squamous Epith Cells Urine Mucus Micro UA Comment Urine Culture Comments Urine Opiates Screen Ur Barbiturates Screen Ur Amphetamines Screen U Benzodiazepines Scrn Urine Cocaine Screen U Cannabinoids Screen Hepatitis A IgM Ab Nonreactive Hep Bs Antigen Nonreactive Hep B Core IgM Ab Nonreactive Hep C IgG Ab Nonreactive 10/10/17 10/10/17 10/11/17 21:46 23:00 03:19 WBC RBC Hgb Hct MCV MCH MCHC RDW Plt Count MPV ESR Puncture Site Patient Temperature O2 Saturation ABG pH ABG pCO2 ABG pO2 ABG HCO3 ABG O2 Content ABG Base Excess ABG Methemoglobin Oscar Test Hemoglobin Carboxyhemoglobin Inspired O2 Critical Value Sodium 138 Potassium 3.3 L Chloride 102 Carbon Dioxide 27.2 Anion Gap 9 BUN 7 Creatinine 0.86 Estimated GFR 68 L POC Glucose 307 H 280 H Random Glucose 273 H Calcium 8.1 L Phosphorus Magnesium Total Bilirubin Direct Bilirubin Indirect Bilirubin AST ALT Alkaline Phosphatase Total Protein Albumin Lipase Beta-Hydroxybutyric Acd Urine Color Urine Clarity Urine pH Ur Specific [employer] Urine Protein Urine Glucose (UA) Urine Ketones Urine Occult Blood Urine Nitrate Urine Bilirubin Urine Urobilinogen Ur Leukocyte Esterase Urine RBC Urine WBC Ur Squamous Epith Cells Urine Mucus Micro UA Comment Urine Culture Comments Urine Opiates Screen Ur Barbiturates Screen Ur Amphetamines Screen U Benzodiazepines Scrn Urine Cocaine Screen U Cannabinoids Screen Hepatitis A IgM Ab Hep Bs Antigen Hep B Core IgM Ab Hep C IgG Ab 10/11/17 10/11/17 10/11/17 05:27 05:27 09:02 WBC 5.5 RBC 4.60 Hgb 12.2 Hct 36.4 MCV 79.2 L MCH 26.5 L MCHC 33.5 RDW 15.5 Plt Count 346 MPV 8.8 ESR Puncture Site Patient Temperature O2 Saturation ABG pH ABG pCO2 ABG pO2 ABG HCO3 ABG O2 Content ABG Base Excess ABG Methemoglobin Oscar Test Hemoglobin Carboxyhemoglobin Inspired O2 Critical Value Sodium 139 Potassium 4.1 D Chloride 106 Carbon Dioxide 25.3 Anion Gap 8 BUN 7 Creatinine 0.86 Estimated GFR 68 L POC Glucose 381 H Random Glucose 284 H Calcium 7.8 L Phosphorus Magnesium Total Bilirubin Direct Bilirubin Indirect Bilirubin AST ALT Alkaline Phosphatase Total Protein Albumin Lipase Beta-Hydroxybutyric Acd Urine Color Urine Clarity Urine pH Ur Specific [employer] Urine Protein Urine Glucose (UA) Urine Ketones Urine Occult Blood Urine Nitrate Urine Bilirubin Urine Urobilinogen Ur Leukocyte Esterase Urine RBC Urine WBC Ur Squamous Epith Cells Urine Mucus Micro UA Comment Urine Culture Comments Urine Opiates Screen Ur Barbiturates Screen Ur Amphetamines Screen U Benzodiazepines Scrn Urine Cocaine Screen U Cannabinoids Screen Hepatitis A IgM Ab Hep Bs Antigen Hep B Core IgM Ab Hep C IgG Ab - Imaging Impressions Chest X-Ray 10/10/17 00:00 CONCLUSION: Minimal left basilar density could be atelectasis or minimal infiltrate. Foot X-Ray 10/10/17 00:00 CONCLUSION: Amputation distal phalanx great toe. Soft tissue swelling without acute bony abnormality. Venous Doppler Study 10/10/17 00:00 CONCLUSION: 1. The study is negative for bilateral lower extremity deep venous thrombosis. Chest X-Ray 10/11/17 00:00 CONCLUSION: No acute cardiopulmonary disease. Assessment and Plan - Plan 57-year-old female with left third digit postop infection Patient examined and evaluated with all questions answered X-rays reviewed no soft tissue emphysema representing gas gangrene seen MRI left foot Dr. Quynh Gracia to assume care tomorrow and determine appropriate surgical intervention for patient Anticipate 2 OR for left third digit amputation at metatarsophalangeal joint with sub-met 2 ulcer debridement, possible heel ulcer debridement
[2017-10-11 13:53] LABS: Calcium 7.9 mg/dL (8.5-10.1); Carbon Dioxide 23.8 meq/L (21.0-32.0); Potassium 4.2 meq/L (3.5-5.1)
[2017-10-11] MEDS: Enoxaparin Inj 40 MG/0.4 ML Syringe SQ SCH (15:10)
--- NOTE | 2017-10-11 15:46 | ECG ---
Date Performed: 10/10/2017 Time Performed: 13:05:14 PTAGE: 57 years EKG: Sinus rhythm WITHIN NORMAL LIMITS Since previous tracing, no significant change noted BORDERLINE ECG PREVIOUS TRACING : 08/12/2017 20.49 DOCTOR: Trevor Martin Interpretating Date/Time 10/11/2017 15:44:56
--- NOTE | 2017-10-11 15:59 | ECHRPT ---
EXAM DATE: 10/11/2017 2:05 PM EDT AGE/SEX: 57 years / Female INDICATIONS: Foot infection, Diabetic ulcer CLINICAL DATA: This is the patient's initial encounter. Patient reports that signs and symptoms have been present for > 1 year and indicates a pain score of 3/10. MEDICAL/SURGICAL HISTORY: . Amputation left great toe, COPD, Diabetes, High Cholesterol, Hx of DVT, Hepatitis, Amputation of third toe of the left foot . Hx of bowel resection, Cholecystectomy, A mputation of the third montez of the left foot. COMPARISON: No prior exams available for comparison. TECHNIQUE: Four-cuff ankle and brachial pressures were obtained. Pulse cuff waveform tracings of the ankles were recorded, and ankle-brachial indices were calculated. PRESSURES (mmHg): Brachial (arm) : RIGHT: 136, LEFT: 131 Ankle : RIGHT: 157, LEFT: 155 Toe : RIGHT: 89, LEFT: 104 ALANIS : RIGHT: 1.15, LEFT: 1.14 FINDINGS: Pulsed-Cuff Waveform: Blunted waveforms on the right. More normal appearance on the left. Other: None. CONCLUSION: 1. Ankle-brachial index is approximately 1.1 on both the right and the left side. There is some blun ting of the waveforms on the right. Electronically signed by: Fabiano Sanon MD 10/11/2017 3:57 PM EDT
[2017-10-12] MEDS: Vancomycin Inj 1,250 MG in Sodium Chlor 0.9% Inj 250 ML IV.SIG SCH ×2 (01:27→17:07)
[2017-10-12] MEDS: Piperacil/Tazo 4.5 GM Premix 4.5 GM/100 ML BAG IV.SIG SCH ×3 (01:27→16:31)
[2017-10-12] MEDS: Insulin NovoLOG Aspart Correctional Sugar Inj SQ SCH ×5 (03:22→21:05)
[2017-10-12 05:34] LABS: Hematocrit 37.3 % (35.0-46.0); Hemoglobin 12.5 gm/dL (11.6-15.3); Mean Corpuscular HGB Conc 33.6 % (32.0-36.0); Mean Corpuscular Hemoglobin 26.6 pg (27.0-34.0); Mean Corpuscular Volume 79.2 fL (80.0-100.0); Platelet Count 338 th/mm3 (150-450); Red Blood Count 4.71 mil/mm3 (4.00-5.30); Red Cell Distribution Width 15.1 % (11.6-17.2); White Blood Count 5.4 th/mm3 (4.0-11.0)
[2017-10-12 05:59] LABS: Carbon Dioxide 28.5 meq/L (21.0-32.0); Potassium 3.7 meq/L (3.5-5.1)
[2017-10-12] MEDS: Chlorhexidine Gluconate 2% 1 Pack (2 Cloths) TOPICAL SCH (06:53)
--- NOTE | 2017-10-12 08:20 | P.PNFP ---
Subjective Interval history: No acute events overnight. Afebrile, vitals within normal limits. Patient specifically denies fevers, chest pain, palpitations, dyspnea, cough this morning. States her pain is controlled. She otherwise does not report specific complaints or concerns. <Lucius Prather - 10/12/17 11:03> Results - Labs Result diagrams: 10/12/17 04:00 10/12/17 04:00 <Yohannes Bobby - 10/12/17 13:02> Abnormal lab results 10/11/17 10/11/17 10/11/17 Range/Units 12:53 17:03 20:44 MCV (80.0-100.0) fL MCH (27.0-34.0) pg Sodium 135 L (136-145) meq/L BUN 6 L (7-18) mg/dL Creatinine 1.03 H (0.50-1.00) mg/dL Estimated GFR 55 L (>89) mL/min POC Glucose 371 H 288 H (68-110) mg/dl Random Glucose 384 H D (74-106) mg/dL Calcium 7.9 L (8.5-10.1) mg/dL 10/12/17 10/12/17 10/12/17 Range/Units 03:21 04:00 04:00 MCV 79.2 L (80.0-100.0) fL MCH 26.6 L (27.0-34.0) pg Sodium 135 L (136-145) meq/L BUN (7-18) mg/dL Creatinine (0.50-1.00) mg/dL Estimated GFR 73 L (>89) mL/min POC Glucose 285 H (68-110) mg/dl Random Glucose 260 H D (74-106) mg/dL Calcium 8.0 L (8.5-10.1) mg/dL 10/12/17 10/12/17 Range/Units 07:32 11:57 MCV (80.0-100.0) fL MCH (27.0-34.0) pg Sodium (136-145) meq/L BUN (7-18) mg/dL Creatinine (0.50-1.00) mg/dL Estimated GFR (>89) mL/min POC Glucose 184 H 372 H (68-110) mg/dl Random Glucose (74-106) mg/dL Calcium (8.5-10.1) mg/dL Short CBC 10/12/17 Range/Units 04:00 WBC 5.4 (4.0-11.0) th/mm3 Hgb 12.5 (11.6-15.3) gm/dL Hct 37.3 (35.0-46.0) % Plt Count 338 (150-450) th/mm3 BMP 10/11/17 10/12/17 12:53 04:00 Sodium 135 L 135 L Potassium 4.2 3.7 Chloride 103 100 Carbon Dioxide 23.8 28.5 BUN 6 L 12 Creatinine 1.03 H 0.81 Calcium 7.9 L 8.0 L <Yohannes Bobby - 10/12/17 13:02> Abnormal lab results 10/11/17 10/11/17 10/11/17 Range/Units 09:02 12:18 12:53 MCV (80.0-100.0) fL MCH (27.0-34.0) pg Sodium 135 L (136-145) meq/L BUN 6 L (7-18) mg/dL Creatinine 1.03 H (0.50-1.00) mg/dL Estimated GFR 55 L (>89) mL/min POC Glucose 381 H 406 H (68-110) mg/dl Random Glucose 384 H D (74-106) mg/dL Calcium 7.9 L (8.5-10.1) mg/dL 10/11/17 10/11/17 10/12/17 Range/Units 17:03 20:44 03:21 MCV (80.0-100.0) fL MCH (27.0-34.0) pg Sodium (136-145) meq/L BUN (7-18) mg/dL Creatinine (0.50-1.00) mg/dL Estimated GFR (>89) mL/min POC Glucose 371 H 288 H 285 H (68-110) mg/dl Random Glucose (74-106) mg/dL Calcium (8.5-10.1) mg/dL 10/12/17 10/12/17 10/12/17 Range/Units 04:00 04:00 07:32 MCV 79.2 L (80.0-100.0) fL MCH 26.6 L (27.0-34.0) pg Sodium 135 L (136-145) meq/L BUN (7-18) mg/dL Creatinine (0.50-1.00) mg/dL Estimated GFR 73 L (>89) mL/min POC Glucose 184 H (68-110) mg/dl Random Glucose 260 H D (74-106) mg/dL Calcium 8.0 L (8.5-10.1) mg/dL Short CBC 10/12/17 Range/Units 04:00 WBC 5.4 (4.0-11.0) th/mm3 Hgb 12.5 (11.6-15.3) gm/dL Hct 37.3 (35.0-46.0) % Plt Count 338 (150-450) th/mm3 BMP 10/11/17 10/12/17 12:53 04:00 Sodium 135 L 135 L Potassium 4.2 3.7 Chloride 103 100 Carbon Dioxide 23.8 28.5 BUN 6 L 12 Creatinine 1.03 H 0.81 Calcium 7.9 L 8.0 L <Tj Prathersh - 10/12/17 08:20> - Imaging Impressions Extremity Arterial Study 10/10/17 00:00 CONCLUSION: 1. Ankle-brachial index is approximately 1.1 on both the right and the left side. There is some blunting of the waveforms on the right. <Yohannes Bobby - 10/12/17 13:02> Impressions Extremity Arterial Study 10/10/17 00:00 CONCLUSION: 1. Ankle-brachial index is approximately 1.1 on both the right and the left side. There is some blunting of the waveforms on the right. Chest X-Ray 10/11/17 00:00 CONCLUSION: No acute cardiopulmonary disease. <Tj Prathersh - 10/12/17 08:20> Physical Exam Vital signs: Vital Signs 10/11/17 16:00 10/11/17 16:28 10/11/17 20:00 Temperature 97.4 F L 98.2 F Pulse Rate 79 78 80 Respiratory Rate 20 18 17 Blood Pressure 126/59 L 138/74 Pulse Oximetry 100 96 10/12/17 00:00 10/12/17 04:00 10/12/17 08:00 Temperature 97.6 F 97.5 F L Pulse Rate 80 73 86 Respiratory Rate 18 18 Blood Pressure 151/73 H 110/62 Pulse Oximetry 95 97 10/12/17 09:07 Temperature 98.0 F Pulse Rate 75 Respiratory Rate 16 Blood Pressure 143/71 H Pulse Oximetry 96 Intake & Output 10/11/17 10/12/17 10/12/17 18:59 06:59 18:59 Intake Total 1900 / 1900 340 / 340 100 / 100 Balance 1900 / 1900 340 / 340 100 / 100 Weight 73.7 kg Intake: IV 1200 / 1200 100 / 100 100 / 100 NS Inj 1,000 ML @ 250 mls/hr IV 1000 / 1000 .CONT .Q4H JM Rx#:[id number] Zosyn 4.5 GM Premix 4.5 gm In 200 / 200 100 / 100 100 / 100 100 ml @ 200 mls/hr IV.SIG Q8H JM Rx#:[id number] Oral 700 / 700 240 / 240 Other: # Voids 2 3 # Bowel Movements 1 <Yohannes Bobby - 10/12/17 13:02> Vital Signs 10/11/17 12:00 10/11/17 16:00 10/11/17 16:28 Temperature 97.9 F 97.4 F L Pulse Rate 79 79 78 Respiratory Rate 20 20 18 Blood Pressure 160/75 H 126/59 L Pulse Oximetry 97 100 10/11/17 20:00 10/12/17 00:00 10/12/17 04:00 Temperature 98.2 F 97.6 F 97.5 F L Pulse Rate 80 80 73 Respiratory Rate 17 18 18 Blood Pressure 138/74 151/73 H 110/62 Pulse Oximetry 96 95 97 Intake & Output 10/11/17 10/12/17 10/12/17 18:59 06:59 18:59 Intake Total 1900 / 1900 240 / 240 Balance 1900 / 1900 240 / 240 Weight 73.7 kg Intake: IV 1200 / 1200 NS Inj 1,000 ML @ 250 mls/hr IV 1000 / 1000 .CONT .Q4H JM Rx#:[id number] Zosyn 4.5 GM Premix 4.5 gm In 200 / 200 100 ml @ 200 mls/hr IV.SIG Q8H JM Rx#:[id number] Oral 700 / 700 240 / 240 Other: # Voids 2 3 # Bowel Movements 1 <Lucius Prather - 10/12/17 11:03> Narrative: GENERAL: NAD, lying comfortably in bed NEURO: Alert. 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 twisting frame changer grossly intact. HEAD: Normocephalic. Atraumatic. EYES: EOMI. No injection or drainage. ENT: No nasal drainage. Moist mucous membranes. NECK: Supple, trachea midline. No JVD. CARDIOVASCULAR: Regular rate and rhythm without murmurs, rubs, or gallops. Peripheral pulses 2+. RESPIRATORY: Breath sounds clear to auscultation and equal bilaterally, without wheezes, rales, or rhonchi. No accessory muscle use. GASTROINTESTINAL: Abdomen soft, nontender, nondistended MUSCULOSKELETAL: Strength grossly WNL. PT pulses 2+ bilaterally. No lesions appreciated on the right foot. Bilateral feet are warm with intact pulses. Adequate range of motion of toes bilaterally. BACK: Nontender without obvious deformity. <KourtneyjessghadaLucius - 10/12/17 11:03> Assessment and Plan - Assessment (1) Toe infection Code(s): L08.9 - Local infection of the skin and subcutaneous tissue, unspecified Status: Acute Plan: Status post partial amputation of the left third toe 3 weeks ago with poor follow-up Purulent discharge and malodorous on presentation No leukocytosis, patient was tachycardic on admission with a heart rate of 115 Blood cultures no growth to date Wound cultures with heavy growth group b strep and group d enterococcus Patient was started on vancomycin, Zosyn in the ED Lactic acid 1.7 on admission X-ray of the left foot with soft tissue swelling without acute bony abnormalities ESR 16 We will continue vancomycin with pharmacy consult. Zosyn 4.5 mg IV every 8 hours Podiatry consulted, appreciate recommendations ABIs bilaterally within normal limits P.o. Tylenol, Percocet prn pain (2) Hyperglycemia without ketosis Code(s): R73.9 - Hyperglycemia, unspecified Status: Acute Plan: Patient found to have elevated blood glucose of 714 on admission. Anion gap of 14 Received 10 units IV insulin, 10 units SQ insulin in the ED UA with 20 ketones, 500 or greater urine glucose ABG negative for acidosis EKG on admission normal Suspecting HHS as opposed to DKA Initially plan for insulin drip, but after insulin in the ED and 2 L normal saline bolus in the ED the patient's glucose dropped to 266 Accu-Cheks per protocol Continue low dose insulin sliding scale Potassium supplementation per protocol Increase levemir to 12 units bid (3) Nausea & vomiting Code(s): R11.2 - Nausea with vomiting, unspecified Status: Resolved Plan: Patient with 4-5 day history of nausea and vomiting Improved with IV Zofran in the ED No significant electrolyte abnormalities aside from the pseudohyponatremia Will continue with IV Zofran as needed IV fluids as above Nausea and vomiting improved with control of blood sugars (4) Hepatitis C Code(s): B19.20 - Unspecified viral hepatitis C without hepatic coma Status: Chronic Plan: Reported history of hepatitis C Patient with hepatomegaly and right upper quadrant tenderness Total bilirubin 0.6, LFTs within normal limits She will need to have a stable life and establish with a physician long-term in order to get her p.o. treatment for hepatitis C. (5) COPD (chronic obstructive pulmonary disease) Code(s): J44.9 - Chronic obstructive pulmonary disease, unspecified Status: Chronic Plan: Known history of COPD Expiratory wheezes on admission Ordering scheduled duo nebs with albuterol nebulizers as needed Chest x-ray with minimal basilar density which could be atelectasis or minimal infiltrate. Currently being treated with Zosyn and vancomycin, will continue to monitor She is using her incentive spirometer and her lungs sound well today. (6) Substance abuse Code(s): F19.10 - Other psychoactive substance abuse, uncomplicated Status: Chronic Plan: Reported history of crack cocaine use most recently 2 days prior Endorsed daily use of cocaine prior to admission. Discussed with patient 10/12 she does express desire to quit UDS positive for cocaine Denies h/o etoh abuse +cigarette smoking history Consult case management for drug rehab program post-discharge (7) Diabetes Code(s): E11.9 - Type 2 diabetes mellitus without complications Status: Chronic Plan: Known history of insulin-dependent type 2 diabetes Controlled at home on Toujeo and Humalog injections Takes Lyrica 100 mg twice daily for peripheral neuropathy On a low-dose sliding scale for now See hyperglycemia workup and management as above Holding home medications (8) Hyperlipidemia Code(s): E78.5 - Hyperlipidemia, unspecified Status: Acute Plan: Known history of hyperlipidemia treated with atorvastatin 10 mg daily Holding home p.o. medications for now (9) Depression Code(s): F32.9 - Major depressive disorder, single episode, unspecified Status : Acute Plan: History of depression treated with Cymbalta 20 mg p.o. twice daily Holding home p.o. medications for now (10) Elevated blood pressure reading Code(s): R03.0 - Elevated blood-pressure reading, without diagnosis of hypertension Status: Acute Plan: Patient with no reported history of hypertension, she takes p.o. atenolol 25 mg at home for which she states is for tachycardia Blood pressure initially elevated on admission up to 176/97 Repeat blood pressure decreased to 144/72 Will continue p.o. atenolol 25 mg daily 0.1 mg clonidine p.o. every 6 hours as needed for blood pressures over 170/100 (11) Hyponatremia Code(s): E87.1 - Hypo-osmolality and hyponatremia Status: Resolved Plan: Patient with a sodium of 122 on admission, now improved Corrected sodium of 137, showing a pseudohyponatremia due to hyperglycemia <Lucius Prather - 10/12/17 11:39> - Assessment and Plan 57-year-old female with history of type 2 diabetes, COPD, depression, history of DVT in L arm, hepatitis C, and HLD who is being admitted for management of a wound infection following partial amputation of the left third toe. Also found to be hyperglycemic without ketosis. Management as above <Lucius Prather - 10/12/17 11:03> Discharge Planning: Anticipate discharge to SNF following surgery by podiatry <Lucius Prather - 10/12/17 11:47> - Attending Attestation See the residents documentation for details. I saw and evaluated the patient regarding the lucas portions of this evaluation and agree with the residents findings and plans as written. Parts of this note were created using [employer] voice recognition software program. While efforts were made to correct any mistakes made by this software, some mistakes, errors, and omissions may remain in the final note that were not caught when the note was originally created. Plan of care was discussed and agreed upon with the patient as specifically documented in the above note. An opportunity to ask questions with explanation was provided. Patient voiced understanding on all information reviewed and discussed. <Yohannes Bobby - 10/12/17 13:02> <Tj Prathersh - Last Filed: 10/12/17 11:39> (3) Nausea & vomiting Qualifiers: Vomiting type: unspecified Vomiting Intractability: non-intractable Qualified Code(s): R11.2 - Nausea with vomiting, unspecified (4) Hepatitis C Qualifiers: Viral hepatitis chronicity: chronic Hepatic coma status: without hepatic coma Qualified Code(s): B18.2 - Chronic viral hepatitis C (7) Diabetes Qualifiers: Diabetes mellitus type: type 2 Diabetes mellitus assisted insulin use: with middle or intermediate school principal use Diabetes mellitus complication status: with hyperglycemia Qualified Code(s): E11.65 - Type 2 diabetes mellitus with hyperglycemia; Z79.4 - rn long term care (current) use of insulin (8) Hyperlipidemia Qualifiers: Hyperlipidemia type: pure hypercholesterolemia Qualified Code(s): E78.00 - Pure hypercholesterolemia, unspecified; E78.0 - Pure hypercholesterolemia (9) Depression Qualifiers: Depression Type: major depressive disorder Active/Remission status: currently active Major depression episode severity: unspecified <Lucius Prather - Last Filed: 10/12/17 11:39> (3) Nausea & vomiting Qualifiers: Vomiting type: unspecified Vomiting Intractability: non-intractable Qualified Code(s): R11.2 - Nausea with vomiting, unspecified (4) Hepatitis C Qualifiers: Viral hepatitis chronicity: chronic Hepatic coma status: without hepatic coma Qualified Code(s): B18.2 - Chronic viral hepatitis C (7) Diabetes Qualifiers: Diabetes mellitus type: type 2 Diabetes mellitus assisted insulin use: with middle or intermediate school principal use Diabetes mellitus complication status: with hyperglycemia Qualified Code(s): E11.65 - Type 2 diabetes mellitus with hyperglycemia; Z79.4 - rn long term care (current) use of insulin (8) Hyperlipidemia Qualifiers: Hyperlipidemia type: pure hypercholesterolemia Qualified Code(s): E78.00 - Pure hypercholesterolemia, unspecified; E78.0 - Pure hypercholesterolemia (9) Depression Qualifiers: Depression Type: major depressive disorder Active/Remission status: currently active Major depression episode severity: unspecified
[2017-10-12] MEDS: Insulin Detemir Inj 1,000 UNIT/10 ML Vial SQ SCH ×3 (09:36→21:05)
[2017-10-12] MEDS: Atenolol 25 MG Tablet PO SCH (09:36)
[2017-10-12] MEDS: Senna/Docusate Sodium 8.6/50 MG Tablet PO SCH ×2 (09:36→21:07)
[2017-10-12] MEDS: oxyCODONE/Acetaminophen 10/325 Tablet PO PRN ×2 (09:48→21:06)
[2017-10-12] MEDS: Enoxaparin Inj 40 MG/0.4 ML Syringe SQ SCH (13:15)
--- NOTE | 2017-10-12 18:15 | P.PNPOD ---
Subjective Interval history: Left third digit, submet 2 and heel ulcerations. Pt states the foot is painful. She admits the wounds progressed poorly and did not heal properly due to a lack of compliance on her part. She denies any n/v/f/h/c/sob. Physical Exam Vital signs: Vital Signs 10/11/17 20:00 10/12/17 00:00 10/12/17 04:00 Temperature 98.2 F 97.6 F 97.5 F L Pulse Rate 80 80 73 Respiratory Rate 17 18 18 Blood Pressure 138/74 151/73 H 110/62 Pulse Oximetry 96 95 97 10/12/17 08:00 10/12/17 09:07 10/12/17 12:00 Temperature 98.0 F Pulse Rate 86 75 69 Respiratory Rate 16 Blood Pressure 143/71 H Pulse Oximetry 96 10/12/17 13:33 10/12/17 18:02 Temperature 97.7 F 97.5 F L Pulse Rate 69 73 Respiratory Rate 18 16 Blood Pressure 138/69 146/72 H Pulse Oximetry 94 L 97 Intake & Output 10/11/17 10/12/17 10/12/17 18:59 06:59 18:59 Intake Total 1900 / 1900 602.5 / 602.5 1000 / 1000 Balance 1900 / 1900 602.5 / 602.5 1000 / 1000 Weight 73.7 kg Intake: IV 1200 / 1200 362.5 / 362.5 200 / 200 NS Inj 1,000 ML @ 250 mls/hr IV 1000 / 1000 .CONT .Q4H JM Rx#:[id number] Zosyn 4.5 GM Premix 4.5 gm In 200 / 200 100 / 100 200 / 200 100 ml @ 200 mls/hr IV.SIG Q8H JM Rx#:[id number] Vancomycin Inj 1,250 MG In NS 262.5 / 262.5 Inj 250 ML @ 250 mls/hr IV.SIG Q18H JM Rx#:[id number] Oral 700 / 700 240 / 240 800 / 800 Other: # Voids 2 3 1 # Bowel Movements 1 Narrative: No changes from consultation. Left third digit full thickness ulceration with exposed bone and foul odor. Full thickness wounds to the left heel and submet 2 , without signs of infection. Medications and Allergies Active Medications: Active Medications Acetaminophen (Tylenol) 650 mg PO Q6HR PRN PRN Reason: PAIN SCALE 1 TO 2 Al Hydroxide/Mg Hydroxide (Milk Of Magnfrancesca Liq) 30 ml PO Q12H PRN PRN Reason: Mild Constipation Albuterol (Duoneb Neb ([facility])) 1 ampul NEB Q6HR NEB [facility] Last Admin: 10/12/17 15:42 Dose: Not Given Albuterol (Albuterol Neb (Prn)) 2.5 mg NEB Q2HR NEB PRN PRN Reason: SHORTNESS OF BREATH Atenolol (Tenormin) 25 mg PO DAILY [facility] Last Admin: 10/12/17 09:36 Dose: 25 mg Atorvastatin Calcium (Lipitor) 10 mg PO DAILY [facility] Last Admin: 10/12/17 09:36 Dose: 10 mg Bisacodyl (Dulcolax Supp) 10 mg RECTAL DAILY PRN PRN Reason: SEVERE CONSITIPATION Chlorhexidine Gluconate (Chlorhexidine 2% Cloth) 3 pack TOPICAL DAILY@0400 [facility] Stop: 10/16/17 03:59 Last Admin: 10/12/17 06:53 Dose: Not Given Chlorhexidine Gluconate (Chlorhexidine 2% Cloth) 3 pack TOPICAL DAILY@0400 PRN PRN Reason: Extra cloth needed Stop: 10/16/17 03:59 Clonidine HCl (Catapres) 0.1 mg PO Q6H PRN PRN Reason: SEE LABEL COMMENTS Dextrose (D50w Vial) 50 ml IV.PUSH UNSCH PRN PRN Reason: PER HYPOGLYCEMIA PROTOCOL Dextrose (D50w Vial) 50 ml IV.PUSH UNSCH PRN PRN Reason: PER HYPOGLYCEMIA PROTOCOL Duloxetine HCl (Cymbalta) 20 mg PO BID [facility] Last Admin: 10/12/17 09:35 Dose: 20 mg Glucagon (Glucagon Inj) 1 mg OTHER PRN PRN PRN Reason: for Hypoglycemia Protocol Hydroxyzine Pamoate (Vistaril) 50 mg PO HS [facility] Last Admin: 10/11/17 21:57 Dose: 50 mg Sodium Phosphate 15 mmol/ (Sodium Chloride) 105 mls @ 25 mls/hr IV.SIG UNSCH PRN PRN Reason: for Phosphate Level < 1.0 Pharmacy Profile Note (Vancomycin Consult Pharmacy) 0 mls @ 0 mls/hr OTHER UNSCH [facility] Piperacillin/Tazobactam/Dextrose (Zosyn 4.5 Gm Premix) 4.5 gm in 100 mls @ 200 mls/hr IV.SIG Q8H [facility] Last Infusion: 10/12/17 17:01 Dose: Infused Vancomycin HCl 1,250 mg/ (Sodium Chloride) 262.5 mls @ 250 mls/hr IV.SIG Q18H [facility] Last Admin: 10/12/17 17:07 Dose: 250 mls/hr Insulin Aspart (Novolog Insulin Correctional Sugar Inj) 0 unit SQ ACHS AND 3AM [facility]; Protocol Last Admin: 10/12/17 17:08 Dose: 9 unit Insulin Detemir (Levemir Inj) 12 unit SQ BID [facility] Last Admin: 10/12/17 11:26 Dose: Not Given Miscellaneous Information ([facility] Ordered Lab Info) 0 each OTHER ONCE ONE Stop: 10/13/17 11:46 Naloxone HCl (Narcan Inj) 0.4 mg IV.PUSH UNSCH PRN PRN Reason: SEE LABEL COMMENTS Nicotine (Habitrol 14 Mg Patch.24 Hr) 1 patch T-DERMAL DAILY [facility] Last Admin: 10/12/17 11:35 Dose: 1 patch Ondansetron HCl (Zofran Odt) 4 mg PO Q6H PRN PRN Reason: NAUSEA OR VOMITING Oxycodone/Acetaminophen (Percocet 10/325 Mg) 1 tab PO Q6H PRN PRN Reason: PAIN SCALE 6 TO 10 Last Admin: 10/12/17 09:48 Dose: 1 tab Oxycodone/Acetaminophen (Percocet 5/325 Mg) 1 tab PO Q6H PRN PRN Reason: PAIN SCALE 3 TO 5 Pregabalin (Lyrica) 100 mg PO BID [facility] Last Admin: 10/12/17 11:35 Dose: 100 mg Senna/Docusate Sodium (Sophy-Colace) 1 tab PO BID [facility] Last Admin: 10/12/17 09:36 Dose: 1 tab Sennosides (Senokot) 17.2 mg PO Q12H PRN PRN Reason: Moderate Constipation Sodium Bicarbonate (Sodium Bicarbonate 8.4% Inj) 50 meq IV.PUSH UNSCH PRN PRN Reason: for pH 6.9 to 7.0 Sodium Bicarbonate (Sodium Bicarbonate 8.4% Inj) 100 meq IV.PUSH UNSCH PRN PRN Reason: for pH less than 6.9 Allergies Allergy/AdvReac Type Severity Reaction Status Date / Time lisinopril Allergy Intermediate Cough Verified 10/10/17 08:28 phenytoin Allergy Unknown Hives Verified 10/10/17 08:28 Home Medications Medication Instructions Recorded Confirmed Type atenolol 25 mg PO DAILY 10/10/17 10/10/17 History atorvastatin 10 mg PO DAILY 10/10/17 10/10/17 History duloxetine [Cymbalta] 20 mg PO BID 10/10/17 10/10/17 History hydroxyzine pamoate 150 mg PO HS 10/10/17 10/10/17 History insulin glargine [Toujeo SoloStar 35 unit SUB-Q BID 10/10/17 10/10/17 History U-300 Insulin] insulin lispro [Humalog U-100 1 sliding scale dose SUB-Q UD 10/10/17 10/10/17 History Insulin] insulin lispro [Humalog U-100 10 unit SUB-Q TID 10/10/17 10/10/17 History Insulin] oxycodone-acetaminophen [Percocet] 1 tab PO Q4-6H PRN 10/10/17 10/10/17 History pregabalin [Lyrica] 100 mg PO BID 10/10/17 10/10/17 History Results - Labs CBC & Chem 7: 10/12/17 04:00 10/12/17 04:00 Laboratory Results - last 24 hr 10/11/17 10/12/17 10/12/17 20:44 03:21 04:00 WBC 5.4 RBC 4.71 Hgb 12.5 Hct 37.3 MCV 79.2 L MCH 26.6 L MCHC 33.6 RDW 15.1 Plt Count 338 MPV 9.0 Sodium Potassium Chloride Carbon Dioxide Anion Gap BUN Creatinine Estimated GFR POC Glucose 288 H 285 H Random Glucose Calcium 10/12/17 10/12/17 10/12/17 04:00 07:32 11:57 WBC RBC Hgb Hct MCV MCH MCHC RDW Plt Count MPV Sodium 135 L Potassium 3.7 Chloride 100 Carbon Dioxide 28.5 Anion Gap 7 BUN 12 Creatinine 0.81 Estimated GFR 73 L POC Glucose 184 H 372 H Random Glucose 260 H D Calcium 8.0 L 10/12/17 17:03 WBC RBC Hgb Hct MCV MCH MCHC RDW Plt Count MPV Sodium Potassium Chloride Carbon Dioxide Anion Gap BUN Creatinine Estimated GFR POC Glucose 413 H Random Glucose Calcium Microbiology 10/10/17 09:17 Wound - Foot Gram Stain - Final 10/10/17 09:17 Wound - Foot Wound Culture - Preliminary Enterococcus faecalis Group B beta Strep 10/10/17 08:50 Blood - Peripheral Aerobic Blood Culture - Preliminary No growth in 2 days 10/10/17 08:50 Blood - Peripheral Anaerobic Blood Culture - Preliminary No growth in 2 days 10/10/17 08:50 Blood - Peripheral Aerobic Blood Culture - Preliminary No growth in 2 days 10/10/17 08:50 Blood - Peripheral Anaerobic Blood Culture - Preliminary No growth in 2 days Assessment and Plan - Assessment (1) Toe infection Code(s): L08.9 - Local infection of the skin and subcutaneous tissue, unspecified Status: Acute - Plan -NPO after midnight -plan for left 3rd toe amputation with wound debridements -MRI pending
[2017-10-13] MEDS: Piperacil/Tazo 4.5 GM Premix 4.5 GM/100 ML BAG IV.SIG SCH ×3 (00:50→16:17)
[2017-10-13] MEDS: Insulin NovoLOG Aspart Correctional Sugar Inj SQ SCH ×5 (03:38→21:57)
[2017-10-13] MEDS: oxyCODONE/Acetaminophen 10/325 Tablet PO PRN ×3 (08:34→22:52)
[2017-10-13] MEDS: Senna/Docusate Sodium 8.6/50 MG Tablet PO SCH ×2 (08:35→22:52)
[2017-10-13] MEDS: Atenolol 25 MG Tablet PO SCH (08:35)
[2017-10-13] MEDS: Insulin Detemir Inj 1,000 UNIT/10 ML Vial SQ SCH ×2 (09:31→22:52)
--- NOTE | 2017-10-13 09:55 | P.PNFP ---
Subjective Interval history: No acute events overnight. Afebrile, BPs ranging 120s-160s/60s -70s past 24 hours. Patient reports no specific complaints. She specifically denies fevers or chills, chest pain, dyspnea, palpitations. States her pain is controlled. <Lucius Prather - 10/13/17 09:55> Results - Labs Result diagrams: 10/14/17 09:28 10/14/17 09:28 <BobbyYohannes mark - 10/15/17 11:54> Abnormal lab results 10/14/17 10/14/17 10/14/17 Range/Units 12:15 17:15 21:08 POC Glucose 379 H 441 H 355 H (68-110) mg/dl 10/15/17 10/15/17 Range/Units 07:55 11:48 POC Glucose 276 H 423 H (68-110) mg/dl <Yohannes Bobby - 10/15/17 11:54> Abnormal lab results 10/12/17 10/12/17 10/12/17 Range/Units 11:57 17:03 20:44 POC Glucose 372 H 413 H 401 H (68-110) mg/dl 10/13/17 10/13/17 Range/Units 03:37 08:07 POC Glucose 371 H 136 H (68-110) mg/dl <Lucius Prather - 10/13/17 09:55> Physical Exam Vital signs: Vital Signs 10/14/17 12:00 10/14/17 12:20 10/14/17 16:00 Temperature 98.6 F 99.0 F Pulse Rate 83 76 80 Respiratory Rate 16 18 14 Blood Pressure 136/72 150/80 H Pulse Oximetry 99 98 98 10/14/17 20:00 10/14/17 23:09 10/15/17 00:00 Temperature 97.7 F 98.2 F Pulse Rate 78 81 80 Respiratory Rate 18 20 Blood Pressure 165/75 H 133/60 Pulse Oximetry 98 96 10/15/17 03:04 10/15/17 04:00 10/15/17 08:00 Temperature 98.2 F 97.8 F Pulse Rate 80 79 85 Respiratory Rate 20 17 Blood Pressure 157/73 H 168/79 H Pulse Oximetry 99 97 Intake & Output 10/14/17 10/15/17 10/15/17 18:59 06:59 18:59 Intake Total 660 / 660 Output Total 700 / 700 Balance -700 / -700 660 / 660 Weight 72.6 kg Intake: IV 300 / 300 Ampicillin Inj 2,000 MG In NS 300 / 300 Inj 100 ML @ 400 mls/hr IV.SIG Q4H JM Rx#:[id number] Oral 360 / 360 Output: Urine 700 / 700 Other: # Voids 2 Date of Last Bowel Movement 10/14/17 10/14/17 # Bowel Movements 2 <Yohannes Bobby - 10/15/17 11:54> Vital Signs 10/12/17 12:00 10/12/17 13:33 10/12/17 16:00 Temperature 97.7 F Pulse Rate 69 69 71 Respiratory Rate 18 Blood Pressure 138/69 Pulse Oximetry 94 L 10/12/17 18:02 10/12/17 19:51 10/12/17 20:00 Temperature 97.5 F L 98.3 F Pulse Rate 73 75 77 Respiratory Rate 16 18 Blood Pressure 146/72 H 161/78 H Pulse Oximetry 97 97 10/12/17 23:56 10/13/17 00:00 10/13/17 04:00 Temperature 97.6 F 97.5 F L Pulse Rate 73 79 71 Respiratory Rate 18 18 Blood Pressure 142/75 H 128/73 Pulse Oximetry 97 97 Intake & Output 10/12/17 10/13/17 10/13/17 18:59 06:59 18:59 Intake Total 1000 / 1000 220 / 220 Balance 1000 / 1000 220 / 220 Weight 72.1 kg Intake: IV 200 / 200 100 / 100 Zosyn 4.5 GM Premix 4.5 gm In 200 / 200 100 / 100 100 ml @ 200 mls/hr IV.SIG Q8H JM Rx#:[id number] Oral 800 / 800 120 / 120 Other: # Voids 1 2 <Lucius Prather - 10/13/17 09:55> Narrative: GENERAL: NAD, lying comfortably in bed NEURO: Alert. 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 HEAD: Normocephalic. Atraumatic. EYES: EOMI. No injection or drainage. ENT: No nasal drainage. Moist mucous membranes. NECK: Supple, trachea midline. No JVD. CARDIOVASCULAR: Regular rate and rhythm without murmurs, rubs, or gallops. Peripheral pulses 2+. RESPIRATORY: Breath sounds clear to auscultation and equal bilaterally, without wheezes, rales, or rhonchi. No accessory muscle use. GASTROINTESTINAL: Abdomen soft, nontender, nondistended MUSCULOSKELETAL: Strength grossly WNL. PT pulses 2+ bilaterally. No lesions appreciated on the right foot. Bilateral feet are warm with intact pulses. Adequate range of motion of toes bilaterally. BACK: Nontender without obvious deformity. <Lucius Prather - 10/13/17 09:55> Assessment and Plan - Assessment (1) Toe infection Code(s): L08.9 - Local infection of the skin and subcutaneous tissue, unspecified Status: Acute Plan: Status post partial amputation of the left third toe 3 weeks ago with poor follow-up Purulent discharge and malodorous on presentation No leukocytosis, patient was tachycardic on admission with a heart rate of 115 Blood cultures no growth to date Wound cultures with heavy growth group b strep and enterococcus faecalis Patient was started on vancomycin, Zosyn in the ED, will continue Lactic acid 1.7 on admission X-ray of the left foot with soft tissue swelling without acute bony abnormalities MRI ordered ESR 16 continue vancomycin with pharmacy consult. Zosyn 4.5 mg IV every 8 hours Podiatry consulted, appreciate recommendations ABIs bilaterally within normal limits P.o. Tylenol, Percocet prn pain (2) Hyperglycemia without ketosis Code(s): R73.9 - Hyperglycemia, unspecified Status: Acute Plan: Patient found to have elevated blood glucose of 714 on admission. Anion gap of 14 Received 10 units IV insulin, 10 units SQ insulin in the ED UA with 20 ketones, 500 or greater urine glucose ABG negative for acidosis EKG on admission normal Suspecting HHS as opposed to DKA Initially plan for insulin drip, but after insulin in the ED and 2 L normal saline bolus in the ED the patient's glucose dropped to 266 Accu-Cheks per protocol Continue low dose insulin sliding scale Potassium supplementation per protocol Levemir 12 units bid (3) Nausea & vomiting Code(s): R11.2 - Nausea with vomiting, unspecified Status: Resolved Plan: Patient with 4-5 day history of nausea and vomiting Improved with IV Zofran in the ED No significant electrolyte abnormalities aside from the pseudohyponatremia Will continue with IV Zofran as needed IV fluids as above Nausea and vomiting improved with control of blood sugars (4) Hepatitis C Code(s): B19.20 - Unspecified viral hepatitis C without hepatic coma Status: Chronic Plan: Reported history of hepatitis C Patient with hepatomegaly and right upper quadrant tenderness Total bilirubin 0.6, LFTs within normal limits She will need to have a stable life and establish with a physician long-term in order to get her p.o. treatment for hepatitis C. (5) COPD (chronic obstructive pulmonary disease) Code(s): J44.9 - Chronic obstructive pulmonary disease, unspecified Status: Chronic Plan: Known history of COPD Expiratory wheezes on admission Ordering scheduled duo nebs with albuterol nebulizers as needed Chest x-ray with minimal basilar density which could be atelectasis or minimal infiltrate. Currently being treated with Zosyn and vancomycin, will continue to monitor (6) Substance abuse Code(s): F19.10 - Other psychoactive substance abuse, uncomplicated Status: Chronic Plan: Reported history of crack cocaine use most recently 2 days prior Endorsed daily use of cocaine prior to admission. Discussed with patient 10/12 she does express desire to quit UDS positive for cocaine Denies h/o etoh abuse +cigarette smoking history Consult case management for drug rehab program post-discharge (7) Diabetes Code(s): E11.9 - Type 2 diabetes mellitus without complications Status: Chronic Plan: Known history of insulin-dependent type 2 diabetes Controlled at home on Toujeo and Humalog injections Takes Lyrica 100 mg twice daily for peripheral neuropathy On a low-dose sliding scale for now, Levemir 12 units bid while inpatient See hyperglycemia workup and management as above Holding home medications (8) Hyperlipidemia Code(s): E78.5 - Hyperlipidemia, unspecified Status: Acute Plan: Known history of hyperlipidemia treated with atorvastatin 10 mg daily Holding home p.o. medications for now (9) Depression Code(s): F32.9 - Major depressive disorder, single episode, unspecified Status : Acute Plan: History of depression treated with Cymbalta 20 mg p.o. twice daily Holding home p.o. medications for now (10) Elevated blood pressure reading Code(s): R03.0 - Elevated blood-pressure reading, without diagnosis of hypertension Status: Acute Plan: Patient with no reported history of hypertension, she takes p.o. atenolol 25 mg at home for which she states is for tachycardia Blood pressure initially elevated on admission up to 176/97 Repeat blood pressure decreased to 144/72 Will continue p.o. atenolol 25 mg daily 0.1 mg clonidine p.o. every 6 hours as needed for blood pressures over 170/100 (11) Hyponatremia Code(s): E87.1 - Hypo-osmolality and hyponatremia Status: Resolved Plan: Patient with a sodium of 122 on admission, now improved Corrected sodium of 137, showing a pseudohyponatremia due to hyperglycemia <Lucius Prather - 10/13/17 09:48> - Assessment and Plan 57-year-old female with history of insulin-dependent type 2 diabetes, COPD, depression, history of DVT in L arm, hepatitis C, and HLD admitted for management of a wound infection following partial amputation of the left third toe. Also found to be hyperglycemic without ketosis. Podiatry consulted planning for debridement, patient anticipated to go to the OR 10/13. <Lucius Prather - 10/13/17 09:55> Discharge Planning: Anticipate discharge to SNF following surgery by podiatry <Lucius Prather 10/13/17 09:55> - Attending Attestation See the residents documentation for details. I saw and evaluated the patient regarding the lucas portions of this evaluation and agree with the residents findings and plans as written. Parts of this note were created using [employer] voice recognition software program. While efforts were made to correct any mistakes made by this software, some mistakes, errors, and omissions may remain in the final note that were not caught when the note was originally created. Plan of care was discussed and agreed upon with the patient as specifically documented in the above note. An opportunity to ask questions with explanation was provided. Patient voiced understanding on all information reviewed and discussed. <Yohannes Bobby - 10/15/17 11:54> <Lucius Prather - Last Filed: 10/13/17 09:48> (3) Nausea & vomiting Qualifiers: Vomiting type: unspecified Vomiting Intractability: non-intractable Qualified Code(s): R11.2 - Nausea with vomiting, unspecified (4) Hepatitis C Qualifiers: Viral hepatitis chronicity: chronic Hepatic coma status: without hepatic coma Qualified Code(s): B18.2 - Chronic viral hepatitis C (7) Diabetes Qualifiers: Diabetes mellitus type: type 2 Diabetes mellitus pompom maker insulin use: with pompom maker use Diabetes mellitus complication status: with hyperglycemia Qualified Code(s): E11.65 - Type 2 diabetes mellitus with hyperglycemia; 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 <Lucius Prather - Last Filed: 10/13/17 09:48> (3) Nausea & vomiting Qualifiers: Vomiting type: unspecified Vomiting Intractability: non-intractable Qualified Code(s): R11.2 - Nausea with vomiting, unspecified (4) Hepatitis C Qualifiers: Viral hepatitis chronicity: chronic Hepatic coma status: without hepatic coma Qualified Code(s): B18.2 - Chronic viral hepatitis C (7) Diabetes Qualifiers: Diabetes mellitus type: type 2 Diabetes mellitus half-way insulin use: with pompom maker use Diabetes mellitus complication status: with hyperglycemia Qualified Code(s): E11.65 - Type 2 diabetes mellitus with hyperglycemia; 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
[2017-10-13] MEDS ORDERED: Gadobutrol PF 7.5 MMOL/7.5 ML Vial (for RAD) IV.SIG ONE (10:28)
--- NOTE | 2017-10-13 11:08 | MR ---
EXAM DATE: 10/13/2017 10:45 AM EDT AGE/SEX: 57 years / Female INDICATIONS: . Left 3rd digit infection with wound on calcanius also. CLINICAL DATA: This is the patient's subsequent encounter. Patient reports that signs and symptoms h ave been present for 3 weeks and indicates a pain score of 2/10. MEDICAL/SURGICAL HISTORY: Diabetes. Chronic obstructive pulmonary disease. Hepatitis C. Justa cystectomy. left 1st and 3rd digit partial amputation, bowel resection, iliac stent COMPARISON: [facility], FOOT COMPLETE LEFT 3V, 10/10/2017. . TECHNIQUE: Multiplanar, multisequence MRI examination was performed without contrast and after th e intravenous administration of 7 ml Gadavist (gadobutrol) single exam dose. FINDINGS: There is ill-defined enhancement and edema of the third toe with cutaneous wound dorsally and distall y. Marked bone erosion or amputation of the middle and distal phalanges. Severe bone marrow signal ab normality of the entire proximal phalanx. Metatarsal is intact. Evidence of prior great toe distal phalanx amputation. Prominent osteoarthritic findings of the great toe metatarsophalangeal joint with adjacent reactive bony change. Prominent midfoot arthrosis with r eactive bony change at the bases of the third and fourth metatarsals as well as in the middle and lat eral cuneiforms and the navicular. There is apparent cutaneous ulceration and soft tissue enhancement of the medial heel. Similar findin g is seen the posterior plantar aspect of the heel. There is mild bony edema of the adjacent posterio r plantar aspect of the calcaneus and minimal enhancement in this region. All the visualized tendons are intact. CONCLUSION: 1. Evidence of osteomyelitis of the third toe. There is either marked erosion or indication of the m iddle and distal phalanges. Severe bone marrow signal abnormality of the proximal phalanx diffusely i ndicating osteomyelitis. 2. Soft tissue edema and enhancement of the heel suggesting cellulitis. Minimal adjacent bone marrow signal abnormality of the plantar posterior aspect of the calcaneus indicating possible early osteom yelitis in this region. 3. Prominent arthrosis of the great toe metatarsophalangeal joint as well as the midfoot. Electronically signed by: Benny Carlisle MD 10/13/2017 11:06 AM EDT
[2017-10-13] MEDS ORDERED: Pharmacy Ordered Lab Info OTHER ONE (11:45)
[2017-10-13] MEDS: Vancomycin Inj 1,250 MG in Sodium Chlor 0.9% Inj 250 ML IV.SIG SCH (13:32)
[2017-10-13] MEDS ORDERED: Lidocaine PF 1% Inj 5 ML Syringe INFILTRATN ONE (16:46)
[2017-10-13] MEDS ORDERED: Succinylcholine Inj 100 MG/5 ML Syringe IV.PUSH ONE (16:46)
[2017-10-13] MEDS ORDERED: Chlorhexidine Gluconate 2% 1 Pack (2 Cloths) TOPICAL SCH (20:15)
[2017-10-13] MEDS ORDERED: Metoprolol Tartrate 25 MG Tablet PO SCH (20:15)
[2017-10-13] MEDS ORDERED: Bupivacaine PF 0.25% Inj 30 ML Vial ONE (20:16)
[2017-10-13] MEDS ORDERED: Sodium Chlor 0.9% Inj 500 ML IV.SIG SCH (21:00)
[2017-10-13] MEDS ORDERED: fentaNYL Citrate Inj 100 MCG/2 ML Ampul ONE (21:28)
--- NOTE | 2017-10-13 22:37 | XR ---
EXAM DATE: 10/13/2017 10:05 PM EDT AGE/SEX: 57 years / Female INDICATIONS: Status post left foot, 3rd digit amputation. CLINICAL DATA: This is the patient's initial encounter. Patient reports that signs and symptoms have been present for 1 day and indicates a pain score of 2/10. MEDICAL/SURGICAL HISTORY: Diabetes mellitus type II. . Left foot, 1st digit amputation. COMPARISON: [facility], FOOT COMPLETE LEFT 3V, 10/10/2017. [facility], XR FOOT (MIN 3 VIEWS), LEFT, 05/27/2017. [facility], FOOT LEFT COMPLETE ([id number]), 08/03/2017. [facility], FOOT LEFT COMPLETE ([id number]), 05/27/2017. . FINDINGS: The patient is status post amputation of the distal first phalanx and the third digit. There appears to be a chronic deformity at the second middle phalanx with some remodeling and angulation at the dis agatha aspect of the second digit. There is an oblique lucency seen through the distal aspect of the sec ond digit which is likely secondary to this deformity. This was present previously. No fractures seen . There is some spurring seen at the proximal base of the first proximal phalanx. There appears to be chronic remodeling at the distal aspect of the first proximal phalanx. CONCLUSION: Status post amputation at the third digit. The patient is also status status post amputation at the d istal first phalanx. Chronic remodeling at the first proximal phalanx and at the second middle phalanx. Electronically signed by: Marck Marmolejo MD 10/13/2017 10:36 PM EDT
--- NOTE | 2017-10-13 23:12 | P.CONID ---
History of Present Illness Service: ID Consult date: 10/13/17 Requesting Physician: Lucius Prather Reason for Consult: L foot osteomyelitis Primary Care Provider: UNKNOWN Chief Complaint: L foot wound History of Present Illness: 57 F poorly controlled DM sp toe amputation weeks ago non healing Got worse in the last week drainage pain redness HIgh fevers chill Blood sugar very high up to 700 Tobacco +, just stopped 2 weeks ago Review of Systems All other systems reviewed negative except as stated in HPI [facility] - History History Provided By: Patient - Medical History Medical History: Medical History (Last Reviewed 12/10/17 @ 13:48 by Brynn Kendrick MD) Depression (Chronic) Amputated great toe of left foot (Acute) COPD (chronic obstructive pulmonary disease) (Chronic) Diabetes (Chronic) High cholesterol (Acute) DVT (deep venous thrombosis) Hepatitis 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 - Surgical History Surgical History: Surgical History (Last Reviewed 12/10/17 @ 13:48 by Brynn Kendrick MD) History of partial ray amputation of third toe of left foot (Acute) History of bowel resection History of cholecystectomy - Family History Family History: Family History (Last Reviewed 12/10/17 @ 13:48 by Brynn Kendrick MD) Other Alzheimer disease Cancer Diabetes Hypertension - Social History I have reviewed the patient's Social History: Yes - Tobacco History Second Hand Smoke Exposure: Yes Tobacco Use In Past 30 Days: Yes Smoking Status: Current every day smoker Tobacco Type: Cigarettes - Alcohol History How Often Do You Have a Drink Containing Alcohol: 4 or more times a week - Substance Use History Substance History: Active Abuse - Substance Use Type Crack/Cocaine Status: Active Route Used: Inhalation Reason for Use: Get High - Travel History Recent Travel in the [place] Within the Last 8 Weeks: No Recent Travel Out of the Country Within the Last 8 Weeks: No - Immunization History Tetanus Immunization: <5 Years Hx Influenza Vaccine This Season: No Medications and Allergies Active Medications: Active Medications Acetaminophen (Tylenol) 650 mg PO Q6HR PRN PRN Reason: PAIN SCALE 1 TO 2 Al Hydroxide/Mg Hydroxide (Milk Of Magnesia Liq) 30 ml PO Q12H PRN PRN Reason: Mild Constipation Albuterol (Duoneb Neb (Andreas)) 1 ampul NEB Q6HR NEB ANDREAS Last Admin: 10/13/17 19:46 Dose: Not Given Albuterol (Albuterol Neb (Prn)) 2.5 mg NEB Q2HR NEB PRN PRN Reason: SHORTNESS OF BREATH Atenolol (Tenormin) 25 mg PO DAILY [facility] Last Admin: 10/13/17 08:35 Dose: 25 mg Atorvastatin Calcium (Lipitor) 10 mg PO DAILY [facility] Last Admin: 10/13/17 08:35 Dose: 10 mg Bisacodyl (Dulcolax Supp) 10 mg RECTAL DAILY PRN PRN Reason: SEVERE CONSITIPATION Chlorhexidine Gluconate (Chlorhexidine 2% Cloth) 3 pack 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 [facility] Stop: 10/16/17 20:11 Chlorhexidine Gluconate (Chlorhexidine 2% Cloth) 3 pack TOPICAL DAILY@0400 [facility] Stop: 10/16/17 03:59 Last Admin: 10/12/17 06:53 Dose: Not Given Chlorhexidine Gluconate (Chlorhexidine 2% Cloth) 3 pack TOPICAL DAILY@0400 PRN PRN Reason: Extra cloth needed Stop: 10/16/17 03:59 Clonidine HCl (Catapres) 0.1 mg PO Q6H PRN PRN Reason: SEE LABEL COMMENTS Dextrose (D50w Vial) 50 ml IV.PUSH UNSCH PRN PRN Reason: PER HYPOGLYCEMIA PROTOCOL Dextrose (D50w Vial) 50 ml IV.PUSH UNSCH PRN PRN Reason: PER HYPOGLYCEMIA PROTOCOL Duloxetine HCl (Cymbalta) 20 mg PO BID [facility] Last Admin: 10/13/17 22:52 Dose: 20 mg Glucagon (Glucagon Inj) 1 mg OTHER PRN PRN PRN Reason: for Hypoglycemia Protocol Hydroxyzine Pamoate (Vistaril) 50 mg PO [facility] Last Admin: 10/13/17 22:51 Dose: 50 mg Vancomycin HCl 1,250 mg/ (Sodium Chloride) 262.5 mls @ 250 mls/hr IV.SIG Q12H [facility] Sodium Chloride (Ns Inj) 500 mls @ 30 mls/hr IV.SIG .Q10H [facility] Stop: 10/16/17 20:11 Lactated Ringer's (Lr 1000 Ml Inj) 1,000 mls @ 30 mls/hr IV.SIG .Q24H [facility] Stop: 10/16/17 20:11 Last Infusion: 10/13/17 21:10 Dose: 30 mls/hr Sodium Phosphate 15 mmol/ (Sodium Chloride) 105 mls @ 25 mls/hr IV.SIG UNSCH PRN PRN Reason: for Phosphate Level < 1.0 Pharmacy Profile Note (Vancomycin Consult Pharmacy) 0 mls @ 0 mls/hr OTHER UNSCH [facility] Piperacillin/Tazobactam/Dextrose (Zosyn 4.5 Gm Premix) 4.5 gm in 100 mls @ 200 mls/hr IV.SIG Q8H [facility] Last Admin: 10/13/17 16:17 Dose: 100 mls/hr Insulin Aspart (Novolog Insulin Correctional Sugar Inj) 0 unit SQ ACHS AND 3AM ANDREAS; Protocol Last Admin: 10/13/17 21:57 Dose: Not Given Insulin Detemir (Levemir Inj) 12 unit SQ BID [facility] Last Admin: 10/13/17 22:52 Dose: 12 unit Metoprolol Tartrate (Lopressor) 25 mg PO ELECTRODE CLEANING MACHINE OPERATOR [facility] Stop: 10/16/17 20:11 Miscellaneous Information ([facility] Ordered Lab Info) 0 each OTHER ONCE ONE Stop: 10/15/17 00:46 Miscellaneous Information ([facility] [place] [facility]) 1 each OTHER UNSCH PRN PRN Reason: SEE LABEL COMMENTS Stop: 10/14/17 21:20 Naloxone HCl (Narcan Inj) 0.4 mg IV.PUSH UNSCH PRN PRN Reason: SEE LABEL COMMENTS Nicotine (Habitrol 14 Mg Patch.24 Hr) 1 patch T-DERMAL DAILY [facility] Last Admin: 10/13/17 08:34 Dose: 1 patch Ondansetron HCl (Zofran Odt) 4 mg PO Q6H PRN PRN Reason: NAUSEA OR VOMITING Oxycodone/Acetaminophen (Percocet 10/325 Mg) 1 tab PO Q6H PRN PRN Reason: PAIN SCALE 6 TO 10 Last Admin: 10/13/17 22:52 Dose: 1 tab Oxycodone/Acetaminophen (Percocet 5/325 Mg) 1 tab PO Q6H PRN PRN Reason: PAIN SCALE 3 TO 5 Povidone Iodine (Betadine 5% Antisepsis Kit) 1 applicatio EACH NARE ELECTRODE CLEANING MACHINE OPERATOR [facility] Stop: 10/16/17 20:11 Pregabalin (Lyrica) 100 mg PO BID [facility] Last Admin: 10/13/17 22:51 Dose: 100 mg Senna/Docusate Sodium (Sophy-Colace) 1 tab PO BID ANDREAS Last Admin: 10/13/17 22:52 Dose: Not Given Sennosides (Senokot) 17.2 mg PO Q12H PRN PRN Reason: Moderate Constipation Sodium Bicarbonate (Sodium Bicarbonate 8.4% Inj) 50 meq IV.PUSH UNSCH PRN PRN Reason: for pH 6.9 to 7.0 Sodium Bicarbonate (Sodium Bicarbonate 8.4% Inj) 100 meq IV.PUSH UNSCH PRN PRN Reason: for pH less than 6.9 Allergies Allergy/AdvReac Type Severity Reaction Status Date / Time lisinopril Allergy Intermediate Cough Verified 10/10/17 08:28 phenytoin Allergy Unknown Hives Verified 10/10/17 08:28 Home Medications Medication Instructions Recorded Confirmed Type atorvastatin 10 mg PO DAILY 10/10/17 10/10/17 History duloxetine [Cymbalta] 20 mg PO BID 10/10/17 10/10/17 History Exam Vital signs: Vital Signs 10/12/17 23:56 10/13/17 00:00 10/13/17 04:00 Temperature 97.6 F 97.5 F L Pulse Rate 73 79 71 Respiratory Rate 18 18 Blood Pressure 142/75 H 128/73 Pulse Oximetry 97 97 10/13/17 08:00 10/13/17 12:00 10/13/17 12:58 Temperature 98.0 F 97.4 F L Pulse Rate 74 66 Respiratory Rate 17 17 16 Blood Pressure 158/81 H 141/74 H Pulse Oximetry 95 99 10/13/17 16:00 10/13/17 20:00 10/13/17 21:19 Temperature 97.9 F 97.8 F 97.7 F Pulse Rate 68 65 70 Respiratory Rate 17 20 14 Blood Pressure 150/72 H 114/62 133/71 Pulse Oximetry 98 98 99 10/13/17 21:30 10/13/17 21:45 10/13/17 22:00 Temperature 97.4 F L Pulse Rate 72 69 72 Respiratory Rate 16 16 16 Blood Pressure 143/75 H 141/78 H 135/68 Pulse Oximetry 100 99 95 Intake & Output 10/13/17 10/13/17 10/14/17 06:59 18:59 06:59 Intake Total 220 / 220 100 / 100 1000 / 1000 Output Total 5 / 5 Balance 220 / 220 100 / 100 995 / 995 Weight 72.1 kg Intake: IV 100 / 100 100 / 100 900 / 900 LR 1000 mL Inj 1,000 ML @ 30 900 / 900 mls/hr IV.SIG .Q24H ANDREAS Rx#: [id number] Zosyn 4.5 GM Premix 4.5 gm In 100 / 100 100 / 100 100 ml @ 200 mls/hr IV.SIG Q8H ANDREAS Rx#:[id number] Oral 120 / 120 Anesthesia Amount 100 / 100 Output: Estimated Blood Loss 5 / 5 Other: # Voids 2 4 Date of Last Bowel Movement 10/13/17 # Bowel Movements 1 - Constitutional no acute distress, obese - Routine HEENT Exam Head: Present: normocephalic, atraumatic Eye: Present: EOMI, PERRL ENT: Present: mucous membranes moist, oropharynx clear - Routine Neck Exam Present: supple, full ROM - Routine Respiratory Exam Present: decreased breath sounds, CTA bilaterally - Routine Cardiovascular Exam Present: RRR, S1, S2 - Routine Abdominal Exam Present: soft, normoactive bowel sounds, tenderness (NONE), distended (NONE), organomegaly (NONE) - Routine Extremities Exam Present: cyanosis, clubbing Comments: Toee deformities 3 rd R toe sp amputation is draining pus, wound opned dehisced + edema erythema extending to upper foot Pulses decreased - Routine Skin Exam Present: intact, warm Comments: no rash - Routine Neurological Exam Present: alert, oriented X3, CN II-XII intact, moving all extremities, normal speech - Routine Psychiatric Exam Present: normal affect, normal thought process, cooperative Results - Labs CBC & Chem 7: 10/17/17 07:23 10/14/17 09:28 Labs: Laboratory Results - last 24 hr 10/13/17 10/13/17 10/13/17 03:37 08:07 13:03 POC Glucose 371 H 136 H Vancomycin Trough 7.2 10/13/17 10/13/17 10/13/17 13:30 16:15 21:26 POC Glucose 197 H 182 H 130 H Vancomycin Trough - Imaging Impressions Foot MRI 10/13/17 00:00 CONCLUSION: 1. Evidence of osteomyelitis of the third toe. There is either marked erosion or indication of the middle and distal phalanges. Severe bone marrow signal abnormality of the proximal phalanx diffusely indicating osteomyelitis. 2. Soft tissue edema and enhancement of the heel suggesting cellulitis. Minimal adjacent bone marrow signal abnormality of the plantar posterior aspect of the calcaneus indicating possible early osteomyelitis in this region. 3. Prominent arthrosis of the great toe metatarsophalangeal joint as well as the midfoot. Foot X-Ray 10/13/17 00:00 CONCLUSION: Status post amputation at the third digit. The patient is also status status post amputation at the distal first phalanx. Chronic remodeling at the first proximal phalanx and at the second middle phalanx. Assessment and Plan - Plan DFI, 3rd toe osteo L foot Non healing part amputation Uncontrolled DM tobaccoism cont broas spectrum abx consider vascular w/u, though pulse on L DP is palpable Needs at least 3 rd ray amputaion will dw behavioral health clinician
[2017-10-14] MEDS: Piperacil/Tazo 4.5 GM Premix 4.5 GM/100 ML BAG IV.SIG SCH ×2 (01:06→10:05)
[2017-10-14] MEDS: Vancomycin Inj 1,250 MG in Sodium Chlor 0.9% Inj 250 ML IV.SIG SCH ×2 (01:40→13:00)
[2017-10-14] MEDS: oxyCODONE/Acetaminophen 10/325 Tablet PO PRN ×3 (04:46→22:49)
[2017-10-14] MEDS: Insulin NovoLOG Aspart Correctional Sugar Inj SQ SCH ×5 (05:06→22:50)
[2017-10-14] MEDS: Chlorhexidine Gluconate 2% 1 Pack (2 Cloths) TOPICAL SCH (05:53)
--- NOTE | 2017-10-14 09:13 | P.PNFP ---
Subjective Interval history: No acute events overnight. Afebrile, vitals stable. Patient POD #1. States her pain is controlled. Specifically denies fevers or chills, chest pain, dyspnea, cough. States that she has been working with case management. She otherwise does not report specific complaints or concerns. <Lucius Prather - 10/14/17 11:41> Results - Labs Result diagrams: 10/14/17 09:28 10/14/17 09:28 <Yohannes Bobby - 10/15/17 12:37> Abnormal lab results 10/14/17 10/14/17 10/15/17 Range/Units 17:15 21:08 07:55 POC Glucose 441 H 355 H 276 H (68-110) mg/dl 10/15/17 Range/Units 11:48 POC Glucose 423 H (68-110) mg/dl <Yohannes Bobby - 10/15/17 12:37> Abnormal lab results 10/13/17 10/13/17 10/13/17 Range/Units 13:30 16:15 21:26 POC Glucose 197 H 182 H 130 H (68-110) mg/dl 10/14/17 10/14/17 Range/Units 04:49 07:41 POC Glucose 313 H 302 H (68-110) mg/dl <Lucius Prather - 10/14/17 09:13> - Imaging Impressions Foot MRI 10/13/17 00:00 CONCLUSION: 1. Evidence of osteomyelitis of the third toe. There is either marked erosion or indication of the middle and distal phalanges. Severe bone marrow signal abnormality of the proximal phalanx diffusely indicating osteomyelitis. 2. Soft tissue edema and enhancement of the heel suggesting cellulitis. Minimal adjacent bone marrow signal abnormality of the plantar posterior aspect of the calcaneus indicating possible early osteomyelitis in this region. 3. Prominent arthrosis of the great toe metatarsophalangeal joint as well as the midfoot. Foot X-Ray 10/13/17 00:00 CONCLUSION: Status post amputation at the third digit. The patient is also status status post amputation at the distal first phalanx. Chronic remodeling at the first proximal phalanx and at the second middle phalanx. <Lucius Prather - 10/14/17 09:13> Physical Exam Vital signs: Vital Signs 10/14/17 16:00 10/14/17 20:00 10/14/17 23:09 Temperature 99.0 F 97.7 F 98.2 F Pulse Rate 80 78 81 Respiratory Rate 14 18 20 Blood Pressure 150/80 H 165/75 H 133/60 Pulse Oximetry 98 98 96 10/15/17 00:00 10/15/17 03:04 10/15/17 04:00 Temperature 98.2 F Pulse Rate 80 80 79 Respiratory Rate 20 Blood Pressure 157/73 H Pulse Oximetry 99 10/15/17 08:00 10/15/17 12:00 Temperature 97.8 F 98.2 F Pulse Rate 85 78 Respiratory Rate 17 17 Blood Pressure 168/79 H 139/72 Pulse Oximetry 97 99 Intake & Output 10/14/17 10/15/17 10/15/17 18:59 06:59 18:59 Intake Total 660 / 660 Output Total 700 / 700 Balance -700 / -700 660 / 660 Weight 72.6 kg Intake: IV 300 / 300 Ampicillin Inj 2,000 MG In NS 300 / 300 Inj 100 ML @ 400 mls/hr IV.SIG Q4H [facility] Rx#:[id number] Oral 360 / 360 Output: Urine 700 / 700 Other: # Voids 2 Date of Last Bowel Movement 10/14/17 10/14/17 # Bowel Movements 2 <Yohannes Bobby - 10/15/17 12:37> Vital Signs 10/13/17 12:00 10/13/17 12:58 10/13/17 16:00 Temperature 97.4 F L 97.9 F Pulse Rate 66 68 Respiratory Rate 17 16 17 Blood Pressure 141/74 H 150/72 H Pulse Oximetry 99 98 10/13/17 20:00 10/13/17 21:19 10/13/17 21:30 Temperature 97.8 F 97.7 F Pulse Rate 65 70 72 Respiratory Rate 20 14 16 Blood Pressure 114/62 133/71 143/75 H Pulse Oximetry 98 99 100 10/13/17 21:45 10/13/17 22:00 10/14/17 00:00 Temperature 97.4 F L 97.6 F Pulse Rate 69 72 77 Respiratory Rate 16 16 18 Blood Pressure 141/78 H 135/68 116/56 L Pulse Oximetry 99 95 96 10/14/17 04:00 10/14/17 06:00 Temperature 97.5 F L Pulse Rate 76 77 Respiratory Rate 18 Blood Pressure 128/68 Pulse Oximetry 96 Intake & Output 10/13/17 10/14/17 10/14/17 18:59 06:59 18:59 Intake Total 200 / 200 1240 / 1240 Output Total 5 / 5 Balance 200 / 200 1235 / 1235 Weight 73.4 kg Intake: IV 200 / 200 900 / 900 LR 1000 mL Inj 1,000 ML @ 30 900 / 900 mls/hr IV.SIG .Q24H [facility] Rx#: [id number] Zosyn 4.5 GM Premix 4.5 gm In 200 / 200 100 ml @ 200 mls/hr IV.SIG Q8H [facility] Rx#:[id number] Oral 240 / 240 Anesthesia Amount 100 / 100 Output: Estimated Blood Loss 5 / 5 Other: # Voids 4 3 Date of Last Bowel Movement 10/13/17 10/14/17 # Bowel Movements 1 2 <NishantLucius carolina - 10/14/17 09:13> Narrative: GENERAL: NAD, lying comfortably in bed NEURO: Alert. 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 office assistant receptionist grossly intact. HEAD: Normocephalic. Atraumatic. EYES: EOMI. No injection or drainage. ENT: No nasal drainage. Moist mucous membranes. NECK: Supple, trachea midline. No JVD. CARDIOVASCULAR: Regular rate and rhythm without murmurs, rubs, or gallops. Peripheral pulses 2+. RESPIRATORY: Breath sounds clear to auscultation and equal bilaterally, without wheezes, rales, or rhonchi. No accessory muscle use. GASTROINTESTINAL: Abdomen soft, nontender, nondistended MUSCULOSKELETAL: Strength grossly WNL. PT pulses 2+ bilaterally. No lesions appreciated on the right foot. Bilateral feet are warm with intact pulses. Adequate range of motion of remaining toes bilaterally. BACK: Nontender without obvious deformity. <Lucius Prather - 10/14/17 11:41> Assessment and Plan - Assessment (1) Toe infection Code(s): L08.9 - Local infection of the skin and subcutaneous tissue, unspecified Status: Acute Plan: Status post partial amputation of the left third toe 3 weeks ago with poor follow-up Purulent discharge and malodorous on presentation No leukocytosis, patient was tachycardic on admission with a heart rate of 115 Blood cultures no growth to date Wound cultures with heavy growth group b strep and enterococcus faecalis Patient was started on vancomycin, Zosyn in the ED, will continue Lactic acid 1.7 on admission X-ray of the left foot with soft tissue swelling without acute bony abnormalities MRI showing osteomyelitis of the left third toe, with changes indicating possible early osteomyelitis of the left heel POD #1 s/p debridement and heel bone biopsy by podiatry continue vancomycin with pharmacy consult. Zosyn 4.5 mg IV every 8 hours Podiatry consulted, appreciate recommendations ABIs bilaterally within normal limits P.o. Tylenol, Percocet prn pain (2) Hyperglycemia without ketosis Code(s): R73.9 - Hyperglycemia, unspecified Status: Resolved Plan: Patient found to have elevated blood glucose of 714 on admission. Anion gap of 14 Received 10 units IV insulin, 10 units SQ insulin in the ED UA with 20 ketones, 500 or greater urine glucose ABG negative for acidosis EKG on admission normal Suspecting HHS as opposed to DKA Initially plan for insulin drip, but after insulin in the ED and 2 L normal saline bolus in the ED the patient's glucose dropped to 266 Accu-Cheks per protocol Increase levemir to 15 units bid Start scheduled aspart 3 units TIDAC Continue low dose insulin sliding scale Potassium supplementation per protocol (3) Nausea & vomiting Code(s): R11.2 - Nausea with vomiting, unspecified Status: Resolved Plan: Patient with 4-5 day history of nausea and vomiting Improved with IV Zofran in the ED No significant electrolyte abnormalities aside from the pseudohyponatremia Will continue with IV Zofran as needed IV fluids as above Nausea and vomiting improved with control of blood sugars (4) Hepatitis C Code(s): B19.20 - Unspecified viral hepatitis C without hepatic coma Status: Chronic Plan: Reported history of hepatitis C Patient with hepatomegaly and right upper quadrant tenderness Total bilirubin 0.6, LFTs within normal limits She will need to have a stable life and establish with a physician long-term in order to get her p.o. treatment for hepatitis C. (5) COPD (chronic obstructive pulmonary disease) Code(s): J44.9 - Chronic obstructive pulmonary disease, unspecified Status: Chronic Plan: Known history of COPD Expiratory wheezes on admission Ordering scheduled duo nebs with albuterol nebulizers as needed Chest x-ray with minimal basilar density which could be atelectasis or minimal infiltrate. Currently being treated with Zosyn and vancomycin, will continue to monitor (6) Substance abuse Code(s): F19.10 - Other psychoactive substance abuse, uncomplicated Status: Chronic Plan: Reported history of crack cocaine use most recently 2 days prior Endorsed daily use of cocaine prior to admission. Discussed with patient 10/12 she does express desire to quit UDS positive for cocaine Denies h/o etoh abuse +cigarette smoking history Consult case management for drug rehab program post-discharge (7) Diabetes Code(s): E11.9 - Type 2 diabetes mellitus without complications Status: Chronic Plan: Known history of insulin-dependent type 2 diabetes Controlled at home on Toujeo and Humalog injections Takes Lyrica 100 mg twice daily for peripheral neuropathy On a low-dose sliding scale for now, Levemir 12 units bid while inpatient See hyperglycemia workup and management as above Holding home medications (8) Hyperlipidemia Code(s): E78.5 - Hyperlipidemia, unspecified Status: Chronic Plan: Known history of hyperlipidemia treated with atorvastatin 10 mg daily Holding home p.o. medications for now (9) Depression Code(s): F32.9 - Major depressive disorder, single episode, unspecified Status : Chronic Plan: History of depression treated with Cymbalta 20 mg p.o. twice daily Holding home p.o. medications for now (10) Elevated blood pressure reading Code(s): R03.0 - Elevated blood-pressure reading, without diagnosis of hypertension Status: Resolved Plan: Patient with no reported history of hypertension, she takes p.o. atenolol 25 mg at home for which she states is for tachycardia Blood pressure initially elevated on admission up to 176/97 Repeat blood pressure decreased to 144/72 Will continue p.o. atenolol 25 mg daily 0.1 mg clonidine p.o. every 6 hours as needed for blood pressures over 170/100 (11) Hyponatremia Code(s): E87.1 - Hypo-osmolality and hyponatremia Status: Resolved Plan: Patient with a sodium of 122 on admission, now improved Corrected sodium of 137, showing a pseudohyponatremia due to hyperglycemia <Lucius Prather - 10/14/17 11:37> - Assessment and Plan 57-year-old female with history of insulin-dependent type 2 diabetes, COPD, depression, history of DVT in L arm, hepatitis C, and HLD admitted for management of a wound infection following partial amputation of the left third toe. Also found to be hyperglycemic without ketosis. Podiatry consulted. POD # 1 s/p debridement and heel bone biopsy. Infectious disease consulted for long- term antibiotic therapy requirements. <Lucius Prather - 10/14/17 11:41> Discharge Planning: Anticipate discharge to SNF following surgery by podiatry <Lucius Prather - 10/14/17 09:13> <Lucius Prather - Last Filed: 10/14/17 11:37> (3) Nausea & vomiting Qualifiers: Vomiting type: unspecified Vomiting Intractability: non-intractable Qualified Code(s): R11.2 - Nausea with vomiting, unspecified (4) Hepatitis C Qualifiers: Viral hepatitis chronicity: chronic Hepatic coma status: without hepatic coma Qualified Code(s): B18.2 - Chronic viral hepatitis C (7) Diabetes Qualifiers: Diabetes mellitus type: type 2 Diabetes mellitus usp insulin use: with usp use Diabetes mellitus complication status: with hyperglycemia Qualified Code(s): E11.65 - Type 2 diabetes mellitus with hyperglycemia; Z79.4 - longterm (current) use of insulin (8) Hyperlipidemia Qualifiers: Hyperlipidemia type: pure hypercholesterolemia Qualified Code(s): E78.00 - Pure hypercholesterolemia, unspecified; E78.0 - Pure hypercholesterolemia (9) Depression Qualifiers: Depression Type: major depressive disorder Active/Remission status: currently active Major depression episode severity: unspecified <Lucius Prather - Last Filed: 10/14/17 11:37> (3) Nausea & vomiting Qualifiers: Vomiting type: unspecified Vomiting Intractability: non-intractable Qualified Code(s): R11.2 - Nausea with vomiting, unspecified (4) Hepatitis C Qualifiers: Viral hepatitis chronicity: chronic Hepatic coma status: without hepatic coma Qualified Code(s): B18.2 - Chronic viral hepatitis C (7) Diabetes Qualifiers: Diabetes mellitus type: type 2 Diabetes mellitus intermodal dispatcher insulin use: with usp use Diabetes mellitus complication status: with hyperglycemia Qualified Code(s): E11.65 - Type 2 diabetes mellitus with hyperglycemia; Z79.4 - terminal operations manager (current) use of insulin (8) Hyperlipidemia Qualifiers: Hyperlipidemia type: pure hypercholesterolemia Qualified Code(s): E78.00 - Pure hypercholesterolemia, unspecified; E78.0 - Pure hypercholesterolemia (9) Depression Qualifiers: Depression Type: major depressive disorder Active/Remission status: currently active Major depression episode severity: unspecified
[2017-10-14 10:10] LABS: Baso # (Auto) 0.1 th/mm3 (0.0-0.2); Baso % (Auto) 1.1 % (0.0-2.0); Eos # (Auto) 0.1 th/mm3 (0.0-0.4); Eos % (Auto) 1.3 % (0.0-4.0); Hematocrit 39.4 % (35.0-46.0); Hemoglobin 12.7 gm/dL (11.6-15.3); Lymph # (Auto) 2.2 th/mm3 (1.0-4.8); Lymph % (Auto) 35.1 % (9.0-44.0); Mean Corpuscular HGB Conc 32.3 % (32.0-36.0); Mean Corpuscular Hemoglobin 26.2 pg (27.0-34.0); Mean Corpuscular Volume 81.2 fL (80.0-100.0); Mean Platelet Volume 8.7 fL (7.0-11.0); Mono # (Auto) 0.4 th/mm3 (0.0-0.9); Mono % (Auto) 7.1 % (0.0-8.0); Neut # (Auto) 3.5 th/mm3 (1.8-7.7); Neut % (Auto) 55.4 % (16.0-70.0); Platelet Count 361 th/mm3 (150-450); Red Blood Count 4.86 mil/mm3 (4.00-5.30); Red Cell Distribution Width 15.4 % (11.6-17.2); White Blood Count 6.2 th/mm3 (4.0-11.0)
[2017-10-14 10:59] LABS: Calcium 8.3 mg/dL (8.5-10.1); Carbon Dioxide 28.7 meq/L (21.0-32.0)
[2017-10-14] MEDS: Atenolol 25 MG Tablet PO SCH (11:03)
[2017-10-14] MEDS: Senna/Docusate Sodium 8.6/50 MG Tablet PO SCH ×2 (11:04→22:50)
--- NOTE | 2017-10-14 17:58 | P.PNID ---
Subjective Remarks: afebrile doing ok went for bx growing Enterococcus and GBS Antibiotics: zosyn vanco Allergies/Adverse Reactions: Allergies lisinopril Allergy (Intermediate, Verified 10/10/17 08:28) Cough phenytoin Allergy (Unknown, Verified 10/10/17 08:28) Hives pt states unknown Objective Vital Signs 10/13/17 20:00 10/13/17 21:19 10/13/17 21:30 Temperature 97.8 F 97.7 F Pulse Rate 65 70 72 Respiratory Rate 20 14 16 Blood Pressure 114/62 133/71 143/75 H Pulse Oximetry 98 99 100 10/13/17 21:45 10/13/17 22:00 10/14/17 00:00 Temperature 97.4 F L 97.6 F Pulse Rate 69 72 77 Respiratory Rate 16 16 18 Blood Pressure 141/78 H 135/68 116/56 L Pulse Oximetry 99 95 96 10/14/17 04:00 10/14/17 06:00 10/14/17 08:00 Temperature 97.5 F L 97.8 F Pulse Rate 76 77 74 Respiratory Rate 18 14 Blood Pressure 128/68 124/66 Pulse Oximetry 96 96 10/14/17 12:00 10/14/17 12:20 10/14/17 16:00 Temperature 98.6 F 99.0 F Pulse Rate 83 76 80 Respiratory Rate 16 18 14 Blood Pressure 136/72 150/80 H Pulse Oximetry 99 98 98 Intake & Output 10/13/17 10/14/17 10/14/17 18:59 06:59 18:59 Intake Total 200 / 200 1602.5 / 1602.5 Output Total 5 / 5 Balance 200 / 200 1597.5 / 1597.5 Weight 73.4 kg Intake: IV 200 / 200 1262.5 / 1262.5 LR 1000 mL Inj 1,000 ML @ 30 900 / 900 mls/hr IV.SIG .Q24H [facility] Rx#: [id number] Zosyn 4.5 GM Premix 4.5 gm In 200 / 200 100 / 100 100 ml @ 200 mls/hr IV.SIG Q8H J[facility] Rx#:[id number] Vancomycin Inj 1,250 MG In NS 262.5 / 262.5 Inj 250 ML @ 250 mls/hr IV.SIG Q12H JM Rx#:[id number] Oral 240 / 240 Anesthesia Amount 100 / 100 Output: Estimated Blood Loss 5 / 5 Other: # Voids 4 3 Date of Last Bowel Movement 10/13/17 10/14/17 # Bowel Movements 1 2 10/13/17 00:00 Wound - Heel Fungal Smear - Final No fungal elements seen 10/13/17 00:00 Wound - Heel Fungal Culture - Pending 10/13/17 21:01 Wound - Heel Gram Stain - Final 10/13/17 21:01 Wound - Heel Wound Culture - Preliminary No growth in 24 hours 10/10/17 08:50 Blood - Peripheral Aerobic Blood Culture - Preliminary No growth in 4 days 10/10/17 08:50 Blood - Peripheral Anaerobic Blood Culture - Preliminary No growth in 4 days 10/10/17 08:50 Blood - Peripheral Aerobic Blood Culture - Preliminary No growth in 4 days 10/10/17 08:50 Blood - Peripheral Anaerobic Blood Culture - Preliminary No growth in 4 days 10/13/17 21:01 Wound - Heel Acid Fast Bacilli Smear - Pending 10/13/17 21:01 Wound - Heel Mycobacterial Culture - Pending 10/10/17 09:17 Wound - Foot Gram Stain - Final 10/10/17 09:17 Wound - Foot Wound Culture - Final Enterococcus faecalis Group B beta Strep Lab - Hematology Results 10/14/17 09:28 WBC 6.2 RBC 4.86 Hgb 12.7 Hct 39.4 MCV 81.2 MCH 26.2 L MCHC 32.3 RDW 15.4 Plt Count 361 MPV 8.7 Neut % (Auto) 55.4 Lymph % (Auto) 35.1 [place] % (Auto) 7.1 Eos % (Auto) 1.3 Baso % (Auto) 1.1 Neut # (Auto) 3.5 Lymph # (Auto) 2.2 [place] # (Auto) 0.4 Eos # (Auto) 0.1 Baso # (Auto) 0.1 WBC Differential . Differential Comment Auto diff final Lab - Chemistry Results 10/12/17 10/13/17 10/13/17 20:44 03:37 08:07 Sodium Potassium Chloride Carbon Dioxide Anion Gap BUN Creatinine Estimated GFR POC Glucose 401 H 371 H 136 H Random Glucose Calcium 10/13/17 10/13/17 10/13/17 13:30 16:15 21:26 Sodium Potassium Chloride Carbon Dioxide Anion Gap BUN Creatinine Estimated GFR POC Glucose 197 H 182 H 130 H Random Glucose Calcium 10/14/17 10/14/17 10/14/17 04:49 07:41 09:28 Sodium 136 Potassium 4.0 Chloride 99 Carbon Dioxide 28.7 Anion Gap 8 BUN 12 Creatinine 0.92 Estimated GFR 63 L POC Glucose 313 H 302 H Random Glucose 267 H Calcium 8.3 L 10/14/17 10/14/17 12:15 17:15 Sodium Potassium Chloride Carbon Dioxide Anion Gap BUN Creatinine Estimated GFR POC Glucose 379 H 441 H Random Glucose Calcium Imaging: ITS Impressions Extremity Arterial Study 10/10/17 00:00 CONCLUSION: 1. Ankle-brachial index is approximately 1.1 on both the right and the left side. There is some blunting of the waveforms on the right. Venous Doppler Study 10/10/17 00:00 CONCLUSION: 1. The study is negative for bilateral lower extremity deep venous thrombosis. Chest X-Ray 10/11/17 00:00 CONCLUSION: No acute cardiopulmonary disease. Foot MRI 10/13/17 00:00 CONCLUSION: 1. Evidence of osteomyelitis of the third toe. There is either marked erosion or indication of the middle and distal phalanges. Severe bone marrow signal abnormality of the proximal phalanx diffusely indicating osteomyelitis. 2. Soft tissue edema and enhancement of the heel suggesting cellulitis. Minimal adjacent bone marrow signal abnormality of the plantar posterior aspect of the calcaneus indicating possible early osteomyelitis in this region. 3. Prominent arthrosis of the great toe metatarsophalangeal joint as well as the midfoot. Foot X-Ray 10/13/17 00:00 CONCLUSION: Status post amputation at the third digit. The patient is also status status post amputation at the distal first phalanx. Chronic remodeling at the first proximal phalanx and at the second middle phalanx. Physical Exam: GENERAL: SKIN: Warm and dry. MUSCULOSKELETAL: No cyanosis, or edema. Dressing in place L foot Assessment and Plan - Plan DFI, 3rd toe osteo Lt foot Enterococcus GBS Non healing part amputation Uncontrolled DM tobaccoism change broas spectrum abx to ampicillin consider vascular w/u, though pulse on L DP is palpable Needs at least 3 rd ray amputaion Anticipate 6 weeks IV abx - ampicillin on pump
--- NOTE | 2017-10-14 20:39 | P.PNPOD ---
Subjective Interval history: s/p left third toe amputation and calcaneal bone biopsy with on . She denies any n/v/f/h/c/sob/pain. Physical Exam Vital signs: Vital Signs 10/13/17 21:19 10/13/17 21:30 10/13/17 21:45 Temperature 97.7 F Pulse Rate 70 72 69 Respiratory Rate 14 16 16 Blood Pressure 133/71 143/75 H 141/78 H Pulse Oximetry 99 100 99 10/13/17 22:00 10/14/17 00:00 10/14/17 04:00 Temperature 97.4 F L 97.6 F Pulse Rate 72 77 76 Respiratory Rate 16 18 Blood Pressure 135/68 116/56 L Pulse Oximetry 95 96 10/14/17 06:00 10/14/17 08:00 10/14/17 12:00 Temperature 97.5 F L 97.8 F 98.6 F Pulse Rate 77 74 83 Respiratory Rate 18 14 16 Blood Pressure 128/68 124/66 136/72 Pulse Oximetry 96 96 99 10/14/17 12:20 10/14/17 16:00 Temperature 99.0 F Pulse Rate 76 80 Respiratory Rate 18 14 Blood Pressure 150/80 H Pulse Oximetry 98 98 Intake & Output 10/14/17 10/14/17 10/15/17 06:59 18:59 06:59 Intake Total 1602.5 / 1602.5 Output Total 5 / 5 700 / 700 Balance 1597.5 / 1597.5 -700 / -700 Weight 73.4 kg Intake: IV 1262.5 / 1262.5 LR 1000 mL Inj 1,000 ML @ 30 900 / 900 mls/hr IV.SIG .Q24H [facility] Rx#: [id number] Zosyn 4.5 GM Premix 4.5 gm In 100 / 100 100 ml @ 200 mls/hr IV.SIG Q8H [facility] Rx#:[id number] Vancomycin Inj 1,250 MG In NS 262.5 / 262.5 Inj 250 ML @ 250 mls/hr IV.SIG Q12H J[facility] Rx#:[id number] Oral 240 / 240 Anesthesia Amount 100 / 100 Output: Urine 700 / 700 Estimated Blood Loss 5 / 5 Other: # Voids 3 Date of Last Bowel Movement 10/14/17 # Bowel Movements 2 2 Narrative: All sutures intact, no erythema, no drainage. Noted absence of third digit. Calf is supple and non tender to compression. Medications and Allergies Active Medications: Active Medications Acetaminophen (Tylenol) 650 mg PO Q6HR PRN PRN Reason: PAIN SCALE 1 TO 2 Al Hydroxide/Mg Hydroxide (Milk Of Marylou Humphreys) 30 ml PO Q12H PRN PRN Reason: Mild Constipation Albuterol (Albuterol Neb (Prn)) 2.5 mg NEB Q2HR NEB PRN PRN Reason: SHORTNESS OF BREATH Atenolol (Tenormin) 25 mg PO DAILY [facility] Last Admin: 10/14/17 11:03 Dose: 25 mg Atorvastatin Calcium (Lipitor) 10 mg PO DAILY [facility] Last Admin: 10/14/17 11:03 Dose: 10 mg Bisacodyl (Dulcolax Supp) 10 mg RECTAL DAILY PRN PRN Reason: SEVERE CONSITIPATION Chlorhexidine Gluconate (Chlorhexidine 2% Cloth) 3 pack TOPICAL CORE MANAGER [facility] Stop: 10/16/17 20:11 Chlorhexidine Gluconate (Chlorhexidine 2% Cloth) 3 pack TOPICAL DAILY@0400 [facility] Stop: 10/16/17 03:59 Last Admin: 10/14/17 05:53 Dose: Not Given Chlorhexidine Gluconate (Chlorhexidine 2% Cloth) 3 pack TOPICAL DAILY@0400 PRN PRN Reason: Extra cloth needed Stop: 10/16/17 03:59 Clonidine HCl (Catapres) 0.1 mg PO Q6H PRN PRN Reason: SEE LABEL COMMENTS Dextrose (D50w Vial) 50 ml IV.PUSH UNSCH PRN PRN Reason: PER HYPOGLYCEMIA PROTOCOL Dextrose (D50w Vial) 50 ml IV.PUSH UNSCH PRN PRN Reason: PER HYPOGLYCEMIA PROTOCOL Duloxetine HCl (Cymbalta) 20 mg PO BID [facility] Last Admin: 10/14/17 11:03 Dose: 20 mg Glucagon (Glucagon Inj) 1 mg OTHER PRN PRN PRN Reason: for Hypoglycemia Protocol Hydroxyzine Pamoate (Vistaril) 100 mg PO [facility] Sodium Chloride (Ns Inj) 500 mls @ 30 mls/hr IV.SIG .Q10H [facility] Stop: 10/16/17 20:11 Lactated Ringer's (Lr 1000 Ml Inj) 1,000 mls @ 30 mls/hr IV.SIG .Q24H [facility] Stop: 10/16/17 20:11 Last Infusion: 10/13/17 21:10 Dose: 30 mls/hr Ampicillin Sodium 2,000 mg/ (Sodium Chloride) 100 mls @ 400 mls/hr IV.SIG Q4H [facility] Last Admin: 10/14/17 20:13 Dose: Not Given Sodium Phosphate 15 mmol/ (Sodium Chloride) 105 mls @ 25 mls/hr IV.SIG UNSCH PRN PRN Reason: for Phosphate Level < 1.0 Insulin Aspart (Novolog Inj) 3 units SQ TIDAC [facility] Last Admin: 10/14/17 18:14 Dose: 3 units Insulin Aspart (Novolog Insulin Correctional Sugar Inj) 0 unit SQ ACHS AND 3AM [facility]; Protocol Last Admin: 10/14/17 20:14 Dose: 9 unit Insulin Detemir (Levemir Inj) 15 unit SQ BID [facility] Metoprolol Tartrate (Lopressor) 25 mg PO CORE MANAGER [facility] Stop: 10/16/17 20:11 Miscellaneous Information ([facility] [place], [place] Pharmacy Ordered Lab Info) 0 each OTHER ONCE ONE Stop: 10/15/17 00:46 Miscellaneous Information ([facility] [place], [place] Nursing Information) 1 each OTHER UNSCH PRN PRN Reason: SEE LABEL COMMENTS Stop: 10/14/17 21:20 Naloxone HCl (Narcan Inj) 0.4 mg IV.PUSH UNSCH PRN PRN Reason: SEE LABEL COMMENTS Nicotine (Habitrol 14 Mg Patch.24 Hr) 1 patch T-DERMAL DAILY [facility] Last Admin: 10/14/17 13:01 Dose: 1 patch Ondansetron HCl (Zofran Odt) 4 mg PO Q6H PRN PRN Reason: NAUSEA OR VOMITING Oxycodone/Acetaminophen (Percocet 10/325 Mg) 1 tab PO Q6H PRN PRN Reason: PAIN SCALE 6 TO 10 Last Admin: 10/14/17 14:57 Dose: 1 tab Oxycodone/Acetaminophen (Percocet 5/325 Mg) 1 tab PO Q6H PRN PRN Reason: PAIN SCALE 3 TO 5 Povidone Iodine (Betadine 5% Antisepsis Kit) 1 applicatio EACH [employer] CORE MANAGER [facility] Stop: 10/16/17 20:11 Pregabalin (Lyrica) 100 mg PO BID [facility] Last Admin: 10/14/17 11:03 Dose: 100 mg Senna/Docusate Sodium (Sophy-Colace) 1 tab PO BID [facility] Last Admin: 10/14/17 11:04 Dose: Not Given Sennosides (Senokot) 17.2 mg PO Q12H PRN PRN Reason: Moderate Constipation Sodium Bicarbonate (Sodium Bicarbonate 8.4% Inj) 50 meq IV.PUSH UNSCH PRN PRN Reason: for pH 6.9 to 7.0 Sodium Bicarbonate (Sodium Bicarbonate 8.4% Inj) 100 meq IV.PUSH UNSCH PRN PRN Reason: for pH less than 6.9 Allergies Allergy/AdvReac Type Severity Reaction Status Date / Time lisinopril Allergy Intermediate Cough Verified 10/10/17 08:28 phenytoin Allergy Unknown Hives Verified 10/10/17 08:28 Home Medications Medication Instructions Recorded Confirmed Type atenolol 25 mg PO DAILY 10/10/17 10/10/17 History atorvastatin 10 mg PO DAILY 10/10/17 10/10/17 History duloxetine [Cymbalta] 20 mg PO BID 10/10/17 10/10/17 History hydroxyzine pamoate 150 mg PO HS 10/10/17 10/10/17 History insulin glargine [Toujeo SoloStar 35 unit SUB-Q BID 10/10/17 10/10/17 History U-300 Insulin] insulin lispro [Humalog U-100 1 sliding scale dose SUB-Q UD 10/10/17 10/10/17 History Insulin] insulin lispro [Humalog U-100 10 unit SUB-Q TID 10/10/17 10/10/17 History Insulin] oxycodone-acetaminophen [Percocet] 1 tab PO Q4-6H PRN 10/10/17 10/10/17 History pregabalin [Lyrica] 100 mg PO BID 10/10/17 10/10/17 History Results - Labs CBC & Chem 7: 10/14/17 09:28 10/14/17 09:28 Laboratory Results - last 24 hr 10/13/17 10/14/17 10/14/17 21:26 04:49 07:41 WBC RBC Hgb Hct MCV MCH MCHC RDW Plt Count MPV Neut % (Auto) Lymph % (Auto) [place] % (Auto) Eos % (Auto) Baso % (Auto) Neut # (Auto) Lymph # (Auto) [place] # (Auto) Eos # (Auto) Baso # (Auto) WBC Differential Differential Comment Sodium Potassium Chloride Carbon Dioxide Anion Gap BUN Creatinine Estimated GFR POC Glucose 130 H 313 H 302 H Random Glucose Calcium 10/14/17 10/14/17 10/14/17 09:28 09:28 12:15 WBC 6.2 RBC 4.86 Hgb 12.7 Hct 39.4 MCV 81.2 MCH 26.2 L MCHC 32.3 RDW 15.4 Plt Count 361 MPV 8.7 Neut % (Auto) 55.4 Lymph % (Auto) 35.1 [place] % (Auto) 7.1 Eos % (Auto) 1.3 Baso % (Auto) 1.1 Neut # (Auto) 3.5 Lymph # (Auto) 2.2 [place] # (Auto) 0.4 Eos # (Auto) 0.1 Baso # (Auto) 0.1 WBC Differential . Differential Comment Auto diff final Sodium 136 Potassium 4.0 Chloride 99 Carbon Dioxide 28.7 Anion Gap 8 BUN 12 Creatinine 0.92 Estimated GFR 63 L POC Glucose 379 H Random Glucose 267 H Calcium 8.3 L 10/14/17 17:15 WBC RBC Hgb Hct MCV MCH MCHC RDW Plt Count MPV Neut % (Auto) Lymph % (Auto) [place] % (Auto) Eos % (Auto) Baso % (Auto) Neut # (Auto) Lymph # (Auto) [place] # (Auto) Eos # (Auto) Baso # (Auto) WBC Differential Differential Comment Sodium Potassium Chloride Carbon Dioxide Anion Gap BUN Creatinine Estimated GFR POC Glucose 441 H Random Glucose Calcium Microbiology 10/13/17 00:00 Wound - Heel Fungal Smear - Final No fungal elements seen 10/13/17 21:01 Wound - Heel Gram Stain - Final 10/13/17 21:01 Wound - Heel Wound Culture - Preliminary No growth in 24 hours 10/10/17 08:50 Blood - Peripheral Aerobic Blood Culture - Preliminary No growth in 4 days 10/10/17 08:50 Blood - Peripheral Anaerobic Blood Culture - Preliminary No growth in 4 days 10/10/17 08:50 Blood - Peripheral Aerobic Blood Culture - Preliminary No growth in 4 days 10/10/17 08:50 Blood - Peripheral Anaerobic Blood Culture - Preliminary No growth in 4 days - Imaging Impressions Foot X-Ray 07/24/18 00:00 CONCLUSION: Status post amputation at the third digit. The patient is also status status post amputation at the distal first phalanx. Chronic remodeling at the first proximal phalanx and at the second middle phalanx. Assessment and Plan - Assessment (1) Toe infection Code(s): L08.9 - Local infection of the skin and subcutaneous tissue, unspecified Status: Acute (2) Osteomyelitis Code(s): M86.9 - Osteomyelitis, unspecified Status: Acute - Plan - Keep bandages clean dry and intact - Elevate left foot - abx tbd pending bone bc results - WBAT in surgical shoe - No HHC needed
[2017-10-14] MEDS: Insulin Detemir Inj 1,000 UNIT/10 ML Vial SQ SCH (22:50)
[2017-10-15] MEDS ORDERED: Pharmacy Ordered Lab Info OTHER ONE (00:45)
[2017-10-15] MEDS: Chlorhexidine Gluconate 2% 1 Pack (2 Cloths) TOPICAL SCH ×2 (03:22→19:29)
[2017-10-15] MEDS: Insulin NovoLOG Aspart Correctional Sugar Inj SQ SCH ×5 (06:22→20:44)
[2017-10-15] MEDS: Insulin Detemir Inj 1,000 UNIT/10 ML Vial SQ SCH ×2 (09:24→20:44)
[2017-10-15] MEDS: Atenolol 25 MG Tablet PO SCH (09:24)
[2017-10-15] MEDS: Senna/Docusate Sodium 8.6/50 MG Tablet PO SCH ×2 (09:25→20:42)
[2017-10-15] MEDS: oxyCODONE/Acetaminophen 10/325 Tablet PO PRN ×3 (09:26→22:34)
--- NOTE | 2017-10-15 09:32 | P.PNFP ---
Subjective Interval history: No acute events overnight. Afebrile, BPs ranging 120s-160s/ 60s-80s. Patient seen and examined this morning. She reports no specific complaints or concerns. Specifically denies fevers or chills, chest pain, dyspnea, cough, worsening pain. <Lucius Prather - 10/15/17 13:21> Results - Labs Result diagrams: 10/16/17 06:51 10/14/17 09:28 <Yohannes Bobby - 10/16/17 12:10> Abnormal lab results 10/15/17 10/15/17 10/16/17 Range/Units 16:44 20:23 03:31 MCV (80.0-100.0) fL MCH (27.0-34.0) pg Lymph % (Auto) (9.0-44.0) % Dickens % (Auto) (0.0-8.0) % POC Glucose 411 H 336 H 357 H (68-110) mg/dl 10/16/17 10/16/17 10/16/17 Range/Units 06:51 07:40 12:03 MCV 79.9 L (80.0-100.0) fL MCH 26.3 L (27.0-34.0) pg Lymph % (Auto) 51.7 H (9.0-44.0) % Dickens % (Auto) 9.2 H (0.0-8.0) % POC Glucose 201 H 261 H (68-110) mg/dl Short CBC 10/16/17 Range/Units 06:51 WBC 5.7 (4.0-11.0) th/mm3 Hgb 12.0 (11.6-15.3) gm/dL Hct 36.3 (35.0-46.0) % Plt Count 321 (150-450) th/mm3 <Yohannes Bobby - 10/16/17 12:10> Abnormal lab results 10/14/17 10/14/17 10/14/17 Range/Units 09:28 09:28 12:15 MCH 26.2 L (27.0-34.0) pg Estimated GFR 63 L (>89) mL/min POC Glucose 379 H (68-110) mg/dl Random Glucose 267 H (74-106) mg/dL Calcium 8.3 L (8.5-10.1) mg/dL 10/14/17 10/14/17 10/15/17 Range/Units 17:15 21:08 07:55 MCH (27.0-34.0) pg Estimated GFR (>89) mL/min POC Glucose 441 H 355 H 276 H (68-110) mg/dl Random Glucose (74-106) mg/dL Calcium (8.5-10.1) mg/dL Short CBC 10/14/17 Range/Units 09:28 WBC 6.2 (4.0-11.0) th/mm3 Hgb 12.7 (11.6-15.3) gm/dL Hct 39.4 (35.0-46.0) % Plt Count 361 (150-450) th/mm3 BMP 10/14/17 09:28 Sodium 136 Potassium 4.0 Chloride 99 Carbon Dioxide 28.7 BUN 12 Creatinine 0.92 Calcium 8.3 L <Lucius Prather - 10/15/17 09:32> Physical Exam Vital signs: Vital Signs 10/15/17 16:41 10/15/17 20:00 10/15/17 21:00 Temperature 98.2 F 98.3 F Pulse Rate 78 82 84 Respiratory Rate 18 17 18 Blood Pressure 171/74 H 172/80 H Pulse Oximetry 96 99 99 10/15/17 23:59 10/16/17 00:00 10/16/17 04:00 Temperature 97.6 F 97.6 F Pulse Rate 89 87 67 Respiratory Rate 18 17 Blood Pressure 161/74 H 122/62 Pulse Oximetry 98 98 10/16/17 08:00 Temperature 97.8 F Pulse Rate 74 Respiratory Rate 18 Blood Pressure 140/68 Pulse Oximetry 97 Intake & Output 10/15/17 10/16/17 10/16/17 18:59 06:59 18:59 Intake Total 1020 / 1020 660 / 660 Output Total 1300 / 1300 Balance -280 / -280 660 / 660 Weight 71.2 kg Intake: IV 300 / 300 300 / 300 Ampicillin Inj 2,000 MG In NS 300 / 300 300 / 300 Inj 100 ML @ 400 mls/hr IV.SIG Q4H JM Rx#:[id number] Oral 720 / 720 360 / 360 Output: Urine 1300 / 1300 Other: # Voids 3 Date of Last Bowel Movement 10/14/17 10/14/17 # Bowel Movements 0 <Yohannes Bobby - 10/16/17 12:10> Vital Signs 10/14/17 12:00 10/14/17 12:20 10/14/17 16:00 Temperature 98.6 F 99.0 F Pulse Rate 83 76 80 Respiratory Rate 16 18 14 Blood Pressure 136/72 150/80 H Pulse Oximetry 99 98 98 10/14/17 20:00 10/14/17 23:09 10/15/17 00:00 Temperature 97.7 F 98.2 F Pulse Rate 78 81 80 Respiratory Rate 18 20 Blood Pressure 165/75 H 133/60 Pulse Oximetry 98 96 10/15/17 03:04 10/15/17 04:00 10/15/17 08:00 Temperature 98.2 F 97.8 F Pulse Rate 80 79 85 Respiratory Rate 20 17 Blood Pressure 157/73 H 168/79 H Pulse Oximetry 99 97 Intake & Output 10/14/17 10/15/17 10/15/17 18:59 06:59 18:59 Intake Total 660 / 660 Output Total 700 / 700 Balance -700 / -700 660 / 660 Weight 72.6 kg Intake: IV 300 / 300 Ampicillin Inj 2,000 MG In NS 300 / 300 Inj 100 ML @ 400 mls/hr IV.SIG Q4H JM Rx#:[id number] Oral 360 / 360 Output: Urine 700 / 700 Other: # Voids 2 Date of Last Bowel Movement 10/14/17 10/14/17 # Bowel Movements 2 <Lucius Prather - 10/15/17 09:32> Narrative: GENERAL: NAD, lying comfortably in bed NEURO: Alert. 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 braille typist grossly intact. HEAD: Normocephalic. Atraumatic. EYES: EOMI. No injection or drainage. ENT: No nasal drainage. Moist mucous membranes. NECK: Supple, trachea midline. No JVD. CARDIOVASCULAR: Regular rate and rhythm without murmurs, rubs, or gallops. Peripheral pulses 2+. RESPIRATORY: Breath sounds clear to auscultation and equal bilaterally, without wheezes, rales, or rhonchi. No accessory muscle use. GASTROINTESTINAL: Abdomen soft, nontender, nondistended MUSCULOSKELETAL: Strength grossly WNL. PT pulses 2+ bilaterally. No lesions appreciated on the right foot. Bilateral feet are warm with intact pulses. Adequate range of motion of remaining toes bilaterally. BACK: Nontender without obvious deformity. <Lucius Prather - 10/15/17 13:21> Assessment and Plan - Assessment (1) Toe infection Code(s): L08.9 - Local infection of the skin and subcutaneous tissue, unspecified Status: Acute Plan: Status post partial amputation of the left third toe 3 weeks ago with poor follow-up Purulent discharge and malodorous on presentation No leukocytosis, patient was tachycardic on admission with a heart rate of 115 Blood cultures from 10/10 no growth final Wound cultures with heavy growth group b strep and enterococcus faecalis Patient was started on vancomycin, Zosyn in the ED, discontinued 10/15 per ID and patient started on ampicillin Lactic acid 1.7 on admission X-ray of the left foot with soft tissue swelling without acute bony abnormalities MRI showing osteomyelitis of the left third toe, with changes indicating possible early osteomyelitis of the left heel POD #1 s/p debridement and heel bone biopsy by podiatry Podiatry consulted, appreciate recommendations ID consulted, transitioned to Ampicillin IV, anticipate discharge to SNF on ampicillin pump following bone biopsy results ABIs bilaterally within normal limits P.o. Tylenol, Percocet prn pain (2) Hyperglycemia without ketosis Code(s): R73.9 - Hyperglycemia, unspecified Status: Resolved Plan: Patient found to have elevated blood glucose of 714 on admission. Anion gap of 14 Received 10 units IV insulin, 10 units SQ insulin in the ED UA with 20 ketones, 500 or greater urine glucose ABG negative for acidosis EKG on admission normal Suspecting HHS as opposed to DKA Initially plan for insulin drip, but after insulin in the ED and 2 L normal saline bolus in the ED the patient's glucose dropped to 266 Accu-Cheks per protocol Will increase basal insulin levemir and scheduled aspart TIDAC Continue low dose insulin sliding scale Potassium supplementation per protocol (3) Nausea & vomiting Code(s): R11.2 - Nausea with vomiting, unspecified Status: Resolved Plan: Patient with 4-5 day history of nausea and vomiting Improved with IV Zofran in the ED No significant electrolyte abnormalities aside from the pseudohyponatremia Will continue with IV Zofran as needed IV fluids as above Nausea and vomiting improved with control of blood sugars (4) Hepatitis C Code(s): B19.20 - Unspecified viral hepatitis C without hepatic coma Status: Chronic Plan: Reported history of hepatitis C Patient with hepatomegaly and right upper quadrant tenderness Total bilirubin 0.6, LFTs within normal limits She will need to have a stable life and establish with a physician long-term in order to get her p.o. treatment for hepatitis C. (5) COPD (chronic obstructive pulmonary disease) Code(s): J44.9 - Chronic obstructive pulmonary disease, unspecified Status: Chronic Plan: Known history of COPD Expiratory wheezes on admission Ordering scheduled duo nebs with albuterol nebulizers as needed Chest x-ray with minimal basilar density which could be atelectasis or minimal infiltrate. Currently being treated with Zosyn and vancomycin, will continue to monitor (6) Substance abuse Code(s): F19.10 - Other psychoactive substance abuse, uncomplicated Status: Chronic Plan: Reported history of crack cocaine use most recently 2 days prior Endorsed daily use of cocaine prior to admission. Discussed with patient 10/12 she does express desire to quit UDS positive for cocaine Denies h/o etoh abuse +cigarette smoking history Consult case management for drug rehab program post-discharge (7) Diabetes Code(s): E11.9 - Type 2 diabetes mellitus without complications Status: Chronic Plan: Known history of insulin-dependent type 2 diabetes Controlled at home on Toujeo and Humalog injections Takes Lyrica 100 mg twice daily for peripheral neuropathy On a low-dose sliding scale for now, Levemir 12 units bid while inpatient See hyperglycemia workup and management as above Holding home medications (8) Hyperlipidemia Code(s): E78.5 - Hyperlipidemia, unspecified Status: Chronic Plan: Known history of hyperlipidemia treated with atorvastatin 10 mg daily Holding home p.o. medications for now (9) Depression Code(s): F32.9 - Major depressive disorder, single episode, unspecified Status : Chronic Plan: History of depression treated with Cymbalta 20 mg p.o. twice daily Holding home p.o. medications for now (10) Elevated blood pressure reading Code(s): R03.0 - Elevated blood-pressure reading, without diagnosis of hypertension Status: Resolved Plan: Patient with no reported history of hypertension, she takes p.o. atenolol 25 mg at home for which she states is for tachycardia Blood pressure initially elevated on admission up to 176/97 Repeat blood pressure decreased to 144/72 Will continue p.o. atenolol 25 mg daily 0.1 mg clonidine p.o. every 6 hours as needed for blood pressures over 170/100 (11) Hyponatremia Code(s): E87.1 - Hypo-osmolality and hyponatremia Status: Resolved Plan: Patient with a sodium of 122 on admission, now improved Corrected sodium of 137, showing a pseudohyponatremia due to hyperglycemia <Lucius Prather - 10/15/17 13:21> - Assessment and Plan 57-year-old female with history of insulin-dependent type 2 diabetes, COPD, depression, history of DVT in L arm, hepatitis C, and HLD admitted for management of a wound infection following partial amputation of the left third toe. Also found to be hyperglycemic without ketosis. Podiatry consulted. s/p debridement and heel bone biopsy on 10/13. Infectious disease consulted for long- term antibiotic therapy requirements for 6 weeks, anticipating Ampicillin IV pump on discharge. <Lucius Prather - 10/15/17 13:22> Discharge Planning: Anticipate discharge to SNF following surgery by podiatry <Lucius Prather - 10/15/17 09:32> - Attending Attestation See the residents documentation for details. I saw and evaluated the patient regarding the lucas portions of this evaluation and agree with the residents findings and plans as written. Parts of this note were created using [employer] voice recognition software program. While efforts were made to correct any mistakes made by this software, some mistakes, errors, and omissions may remain in the final note that were not caught when the note was originally created. Plan of care was discussed and agreed upon with the patient as specifically documented in the above note. An opportunity to ask questions with explanation was provided. Patient voiced understanding on all information reviewed and discussed. <Yohannes Bobby - 10/16/17 12:10> <Lucius Prather - Last Filed: 10/15/17 13:21> (3) Nausea & vomiting Qualifiers: Vomiting type: unspecified Vomiting Intractability: non-intractable Qualified Code(s): R11.2 - Nausea with vomiting, unspecified (4) Hepatitis C Qualifiers: Viral hepatitis chronicity: chronic Hepatic coma status: without hepatic coma Qualified Code(s): B18.2 - Chronic viral hepatitis C (7) Diabetes Qualifiers: Diabetes mellitus type: type 2 Diabetes mellitus director professional services insulin use: with jail use Diabetes mellitus complication status: with hyperglycemia Qualified Code(s): E11.65 - Type 2 diabetes mellitus with hyperglycemia; Z79.4 - scrum project manager (current) use of insulin (8) Hyperlipidemia Qualifiers: Hyperlipidemia type: pure hypercholesterolemia Qualified Code(s): E78.00 - Pure hypercholesterolemia, unspecified; E78.0 - Pure hypercholesterolemia (9) Depression Qualifiers: Depression Type: major depressive disorder Active/Remission status: currently active Major depression episode severity: unspecified <Lucius Prather - Last Filed: 10/15/17 13:21> (3) Nausea & vomiting Qualifiers: Vomiting type: unspecified Vomiting Intractability: non-intractable Qualified Code(s): R11.2 - Nausea with vomiting, unspecified (4) Hepatitis C Qualifiers: Viral hepatitis chronicity: chronic Hepatic coma status: without hepatic coma Qualified Code(s): B18.2 - Chronic viral hepatitis C (7) Diabetes Qualifiers: Diabetes mellitus type: type 2 Diabetes mellitus jail insulin use: with jail use Diabetes mellitus complication status: with hyperglycemia Qualified Code(s): E11.65 - Type 2 diabetes mellitus with hyperglycemia; Z79.4 - scrum project manager (current) use of insulin (8) Hyperlipidemia Qualifiers: Hyperlipidemia type: pure hypercholesterolemia Qualified Code(s): E78.00 - Pure hypercholesterolemia, unspecified; E78.0 - Pure hypercholesterolemia (9) Depression Qualifiers: Depression Type: major depressive disorder Active/Remission status: currently active Major depression episode severity: unspecified
--- NOTE | 2017-10-15 17:48 | ECHRPT ---
Indication: sepsis endocarditis CONCLUSIONS Normal left ventricular size. Wall thickness is normal. The left ventricular systolic function is normal with an estimated ejection fraction in the range of 55-60%. Mitral annular calcification is present. Trace mitral valve regurgitation. The estimated pulmonary arterial pressure is 36mmHg. BP: / HR: Rhythm: MEASUREMENTS (Male / Female) Normal Values Technical Quality: 2D ECHO LV Diastolic Diameter PLAX 4.7 cm 4.2 - 5.9 / 3.9 - 5.3 cm LV Systolic Diameter PLAX 3.1 cm IVS Diastolic Thickness 1.3 cm 0.6 - 1.0 / 0.6 - 0.9 cm LVPW Diastolic Thickness 0.8 cm 0.6 - 1.0 / 0.6 - 0.9 cm LV Relative Wall Thickness 0.4 RV Internal Dim ED PLAX 1.7 cm LA Systolic Diameter LX 3.0 cm 3.0 - 4.0 / 2.7 - 3.8 cm M-MODE Aortic Root Diameter MM 2.4 cm AV Cusp Separation MM 1.8 cm DOPPLER Mitral E Point Velocity 96.7 cm/s Mitral A Point Velocity 130.0 cm/s Mitral E to A Ratio 0.7 TR Peak Velocity 277.0 cm/s TR Peak Gradient 30.7 mmHg FINDINGS LEFT VENTRICLE Normal left ventricular size. Wall thickness is normal. The left ventricular systolic function is normal with an estimated ejection fraction in the range of 55-60%. RIGHT VENTRICLE Normal right ventricular size and systolic function. LEFT ATRIUM The left atrial size is normal. RIGHT ATRIUM The right atrial size is normal. ATRIAL SEPTUM Normal atrial septal thickness without atrial level shunting by limited color doppler interrogation. AORTA The aortic root and proximal ascending aorta are normal in size on limited imaging. MITRAL VALVE Mitral annular calcification is present. Trace mitral valve regurgitation. AORTIC VALVE Trileaflet aortic valve. No aortic valve stenosis or regurgitation. TRICUSPID VALVE The estimated pulmonary arterial pressure is 36mmHg. PULMONARY VALVE The pulmonary valve is not well visualized. VESSELS The inferior vena cava is normal in size. PERICARDIUM No pericardial effusion. Jarret Kendrick MD, FACC, [facility] (Electronically Signed) Final Date:15 October 2017 17:46
[2017-10-15 20:53] LABS: Amphetamine Screen,Urine Neg (Neg); Barbiturate Screen,Urine Neg (Neg); Cannabinoid Screen,Urine Neg (Neg); Cocaine Screen,Urine Neg (Neg)
[2017-10-15 21:03] LABS: Opiate Screen,Urine Neg (Neg)
[2017-10-15] MEDS: buPROPion 75 MG Tablet PO SCH (22:38)
[2017-10-16] MEDS: Insulin NovoLOG Aspart Correctional Sugar Inj SQ SCH ×5 (03:40→20:56)
[2017-10-16 07:47] LABS: Baso % (Auto) 0.7 % (0.0-2.0); Eos # (Auto) 0.1 th/mm3 (0.0-0.4); Eos % (Auto) 2.2 % (0.0-4.0); Hematocrit 36.3 % (35.0-46.0); Lymph % (Auto) 51.7 % (9.0-44.0); Mean Corpuscular HGB Conc 32.9 % (32.0-36.0); Mean Corpuscular Hemoglobin 26.3 pg (27.0-34.0); Mean Corpuscular Volume 79.9 fL (80.0-100.0); Mean Platelet Volume 8.6 fL (7.0-11.0); Mono # (Auto) 0.5 th/mm3 (0.0-0.9); Mono % (Auto) 9.2 % (0.0-8.0); Neut # (Auto) 2.1 th/mm3 (1.8-7.7); Neut % (Auto) 36.2 % (16.0-70.0); Platelet Count 321 th/mm3 (150-450); Red Blood Count 4.55 mil/mm3 (4.00-5.30); White Blood Count 5.7 th/mm3 (4.0-11.0)
--- NOTE | 2017-10-16 09:28 | P.PNFP ---
Subjective Interval history: No acute events overnight. Afebrile. BPs noted ranging 120s- 170s/60s-80s. Patient seen and examined this AM. Reports some nausea last night. Denies vomiting, abdominal pain. Nausea has since resolved. Otherwise denies specific complaints or concerns. Specifically denies fevers or chills, CP , dyspnea, cough, worsening pain. BGs reviewed. She otherwise does not have questions. <Lucius Prather - 10/16/17 11:22> Results - Labs Result diagrams: 10/16/17 06:51 10/14/17 09:28 <Yohannes Bobby - 10/16/17 15:47> Abnormal lab results 10/15/17 10/15/17 10/16/17 Range/Units 16:44 20:23 03:31 MCV (80.0-100.0) fL MCH (27.0-34.0) pg Lymph % (Auto) (9.0-44.0) % [place] % (Auto) (0.0-8.0) % POC Glucose 411 H 336 H 357 H (68-110) mg/dl 10/16/17 10/16/17 10/16/17 Range/Units 06:51 07:40 12:03 MCV 79.9 L (80.0-100.0) fL MCH 26.3 L (27.0-34.0) pg Lymph % (Auto) 51.7 H (9.0-44.0) % [place] % (Auto) 9.2 H (0.0-8.0) % POC Glucose 201 H 261 H (68-110) mg/dl Short CBC 10/16/17 Range/Units 06:51 WBC 5.7 (4.0-11.0) th/mm3 Hgb 12.0 (11.6-15.3) gm/dL Hct 36.3 (35.0-46.0) % Plt Count 321 (150-450) th/mm3 <Yohannes Bobby - 10/16/17 15:47> Abnormal lab results 10/15/17 10/15/17 10/15/17 Range/Units 11:48 16:44 20:23 MCV (80.0-100.0) fL MCH (27.0-34.0) pg Lymph % (Auto) (9.0-44.0) % [place] % (Auto) (0.0-8.0) % POC Glucose 423 H 411 H 336 H (68-110) mg/dl 10/16/17 10/16/17 10/16/17 Range/Units 03:31 06:51 07:40 MCV 79.9 L (80.0-100.0) fL MCH 26.3 L (27.0-34.0) pg Lymph % (Auto) 51.7 H (9.0-44.0) % [place] % (Auto) 9.2 H (0.0-8.0) % POC Glucose 357 H 201 H (68-110) mg/dl Short CBC 10/16/17 Range/Units 06:51 WBC 5.7 (4.0-11.0) th/mm3 Hgb 12.0 (11.6-15.3) gm/dL Hct 36.3 (35.0-46.0) % Plt Count 321 (150-450) th/mm3 <NishantLucius carolina - 10/16/17 09:28> Physical Exam Vital signs: Vital Signs 10/15/17 16:41 10/15/17 20:00 10/15/17 21:00 Temperature 98.2 F 98.3 F Pulse Rate 78 82 84 Respiratory Rate 18 17 18 Blood Pressure 171/74 H 172/80 H Pulse Oximetry 96 99 99 10/15/17 23:59 10/16/17 00:00 10/16/17 04:00 Temperature 97.6 F 97.6 F Pulse Rate 89 87 67 Respiratory Rate 18 17 Blood Pressure 161/74 H 122/62 Pulse Oximetry 98 98 10/16/17 08:00 10/16/17 12:00 Temperature 97.8 F 97.9 F Pulse Rate 66 76 Respiratory Rate 18 18 Blood Pressure 140/68 120/59 L Pulse Oximetry 97 97 Intake & Output 10/15/17 10/16/17 10/16/17 18:59 06:59 18:59 Intake Total 1020 / 1020 660 / 660 100 / 100 Output Total 1300 / 1300 Balance -280 / -280 660 / 660 100 / 100 Weight 71.2 kg 71.2 kg Intake: IV 300 / 300 300 / 300 100 / 100 Ampicillin Inj 2,000 MG In NS 300 / 300 300 / 300 100 / 100 Inj 100 ML @ 400 mls/hr IV.SIG Q4H [facility] Rx#:[id number] Oral 720 / 720 360 / 360 Output: Urine 1300 / 1300 Other: # Voids 3 Date of Last Bowel Movement 10/14/17 10/14/17 # Bowel Movements 0 <Yohannes Bobby - 10/16/17 15:47> Vital Signs 10/15/17 12:00 10/15/17 16:41 10/15/17 20:00 Temperature 98.2 F 98.2 F 98.3 F Pulse Rate 77 78 82 Respiratory Rate 17 18 17 Blood Pressure 139/72 171/74 H 172/80 H Pulse Oximetry 99 96 99 10/15/17 21:00 10/15/17 23:59 10/16/17 00:00 Temperature 97.6 F Pulse Rate 84 89 87 Respiratory Rate 18 18 Blood Pressure 161/74 H Pulse Oximetry 99 98 10/16/17 04:00 Temperature 97.6 F Pulse Rate 67 Respiratory Rate 17 Blood Pressure 122/62 Pulse Oximetry 98 Intake & Output 10/15/17 10/16/17 10/16/17 18:59 06:59 18:59 Intake Total 1020 / 1020 660 / 660 Output Total 1300 / 1300 Balance -280 / -280 660 / 660 Weight 71.2 kg Intake: IV 300 / 300 300 / 300 Ampicillin Inj 2,000 MG In NS 300 / 300 300 / 300 Inj 100 ML @ 400 mls/hr IV.SIG Q4H [facility] Rx#:[id number] Oral 720 / 720 360 / 360 Output: Urine 1300 / 1300 Other: # Voids 3 Date of Last Bowel Movement 10/14/17 # Bowel Movements 0 <Lucius Prather - 10/16/17 09:28> Narrative: GENERAL: NAD, lying comfortably in bed NEURO: Alert. 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 document management consultant grossly intact. HEAD: Normocephalic. Atraumatic. EYES: EOMI. No injection or drainage. ENT: No nasal drainage. Moist mucous membranes. NECK: Supple, trachea midline. No JVD. CARDIOVASCULAR: Regular rate and rhythm without murmurs, rubs, or gallops. Peripheral pulses 2+. RESPIRATORY: Breath sounds clear to auscultation and equal bilaterally, without wheezes, rales, or rhonchi. No accessory muscle use. GASTROINTESTINAL: Abdomen soft, nontender, nondistended MUSCULOSKELETAL: Strength grossly WNL. PT pulses 2+ bilaterally. No lesions appreciated on the right foot. Bilateral feet are warm with intact pulses. Adequate range of motion of remaining toes bilaterally. BACK: Nontender without obvious deformity. <Lucius Prather - 10/16/17 11:22> Assessment and Plan - Assessment (1) Toe infection Code(s): L08.9 - Local infection of the skin and subcutaneous tissue, unspecified Status: Acute Plan: Status post partial amputation of the left third toe 3 weeks ago with poor follow-up Purulent discharge and malodorous on presentation No leukocytosis, patient was tachycardic on admission with a heart rate of 115 Blood cultures from 10/10 no growth final Wound cultures with heavy growth group b strep and enterococcus faecalis Patient was started on vancomycin, Zosyn in the ED, discontinued 10/15 per ID and patient started on ampicillin Lactic acid 1.7 on admission X-ray of the left foot with soft tissue swelling without acute bony abnormalities MRI showing osteomyelitis of the left third toe, with changes indicating possible early osteomyelitis of the left heel s/p debridement and heel bone biopsy by podiatry on 10/13 Podiatry consulted, appreciate recommendations ID consulted, transitioned to Ampicillin IV, anticipate discharge to SNF on ampicillin pump following bone biopsy results ABIs bilaterally within normal limits P.o. Tylenol, Percocet prn pain (2) Hyperglycemia without ketosis Code(s): R73.9 - Hyperglycemia, unspecified Status: Resolved Plan: Patient found to have elevated blood glucose of 714 on admission. Anion gap of 14 Received 10 units IV insulin, 10 units SQ insulin in the ED UA with 20 ketones, 500 or greater urine glucose ABG negative for acidosis EKG on admission normal Suspecting HHS as opposed to DKA Initially plan for insulin drip, but after insulin in the ED and 2 L normal saline bolus in the ED the patient's glucose dropped to 266 Accu-Cheks per protocol Will titrate up on basal insulin levemir and scheduled aspart TIDAC Continue low dose insulin sliding scale Potassium supplementation per protocol (3) Nausea & vomiting Code(s): R11.2 - Nausea with vomiting, unspecified Status: Resolved Plan: Patient with 4-5 day history of nausea and vomiting prior to admission No significant electrolyte abnormalities aside from the pseudohyponatremia Continue with IV Zofran as needed IV fluids as above (4) Hepatitis C Code(s): B19.20 - Unspecified viral hepatitis C without hepatic coma Status: Chronic Plan: Reported history of hepatitis C Patient with hepatomegaly and right upper quadrant tenderness Total bilirubin 0.6, LFTs within normal limits She will need to have a stable life and establish with a physician long-term in order to get her p.o. treatment for hepatitis C. (5) COPD (chronic obstructive pulmonary disease) Code(s): J44.9 - Chronic obstructive pulmonary disease, unspecified Status: Chronic Plan: Known history of COPD Expiratory wheezes on admission Ordering scheduled duo nebs with albuterol nebulizers as needed Chest x-ray with minimal basilar density which could be atelectasis or minimal infiltrate. Currently being treated with Zosyn and vancomycin, will continue to monitor (6) Substance abuse Code(s): F19.10 - Other psychoactive substance abuse, uncomplicated Status: Chronic Plan: Reported history of crack cocaine use most recently 2 days prior Endorsed daily use of cocaine prior to admission. Discussed with patient 10/12 she does express desire to quit UDS positive for cocaine Denies h/o etoh abuse +cigarette smoking history Consult case management for drug rehab program post-discharge (7) Diabetes Code(s): E11.9 - Type 2 diabetes mellitus without complications Status: Chronic Plan: Known history of insulin-dependent type 2 diabetes Controlled at home on Toujeo and Humalog injections Takes Lyrica 100 mg twice daily for peripheral neuropathy Continue insulin regimen as above On a low-dose sliding scale for now See hyperglycemia workup and management as above Holding home medications (8) Hyperlipidemia Code(s): E78.5 - Hyperlipidemia, unspecified Status: Chronic Plan: Known history of hyperlipidemia treated with atorvastatin 10 mg daily Holding home p.o. medications for now (9) Depression Code(s): F32.9 - Major depressive disorder, single episode, unspecified Status : Chronic Plan: Continue home PO medications Cymbalta as well as bupropion 75 mg bid (10) Elevated blood pressure reading Code(s): R03.0 - Elevated blood-pressure reading, without diagnosis of hypertension Status: Resolved Plan: Patient with no reported history of hypertension, she takes p.o. atenolol 25 mg at home for which she states is for tachycardia Anticipate need to initiate an antihypertensive Will continue p.o. atenolol 25 mg daily at this time 0.1 mg clonidine p.o. every 6 hours as needed for blood pressures over 170/100 (11) Hyponatremia Code(s): E87.1 - Hypo-osmolality and hyponatremia Status: Resolved Plan: Patient with a sodium of 122 on admission, now improved Corrected sodium of 137, showing a pseudohyponatremia due to hyperglycemia <Lucius Prather - 10/16/17 11:19> - Assessment and Plan 57-year-old female with history of insulin-dependent type 2 diabetes, COPD, depression, history of DVT in L arm, hepatitis C, and HLD admitted for management of a wound infection following partial amputation of the left third toe. Also found to be hyperglycemic without ketosis. Podiatry consulted. s/p debridement and heel bone biopsy on 10/13. Infectious disease consulted for long- term antibiotic therapy requirements for 6 weeks, anticipating Ampicillin IV pump on discharge. <Lucius Prather - 10/16/17 11:22> Discharge Planning: Anticipate discharge to SNF following surgery by podiatry <Lucius Prather 10/16/17 09:28> - Attending Attestation See the residents documentation for details. I saw and evaluated the patient regarding the lucas portions of this evaluation and agree with the residents findings and plans as written. Parts of this note were created using [employer] voice recognition software program. While efforts were made to correct any mistakes made by this software, some mistakes, errors, and omissions may remain in the final note that were not caught when the note was originally created. Plan of care was discussed and agreed upon with the patient as specifically documented in the above note. An opportunity to ask questions with explanation was provided. Patient voiced understanding on all information reviewed and discussed. <Yohannes Bobby - 10/16/17 15:47> <Lucius Prather - Last Filed: 10/16/17 11:19> (3) Nausea & vomiting Qualifiers: Vomiting type: unspecified Vomiting Intractability: non-intractable Qualified Code(s): R11.2 - Nausea with vomiting, unspecified (4) Hepatitis C Qualifiers: Viral hepatitis chronicity: chronic Hepatic coma status: without hepatic coma Qualified Code(s): B18.2 - Chronic viral hepatitis C (7) Diabetes Qualifiers: Diabetes mellitus type: type 2 Diabetes mellitus [employer] insulin use: with [employer] use Diabetes mellitus complication status: with hyperglycemia Qualified Code(s): E11.65 - Type 2 diabetes mellitus with hyperglycemia; 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 - terminal 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 of 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 (8) Hyperlipidemia Qualifiers: Hyperlipidemia type: pure hypercholesterolemia Qualified Code(s): E78.00 - Pure hypercholesterolemia, unspecified; E78.0 - Pure hypercholesterolemia (9) Depression Qualifiers: Depression Type: major depressive disorder Active/Remission status: currently active Major depression episode severity: unspecified <Lucius Prather - Last Filed: 10/16/17 11:19> (3) Nausea & vomiting Qualifiers: Vomiting type: unspecified Vomiting Intractability: non-intractable Qualified Code(s): R11.2 - Nausea with vomiting, unspecified (4) Hepatitis C Qualifiers: Viral hepatitis chronicity: chronic Hepatic coma status: without hepatic coma Qualified Code(s): B18.2 - Chronic viral hepatitis C (7) Diabetes Qualifiers: Diabetes mellitus type: type 2 Diabetes mellitus [employer] insulin use: with [employer] use Diabetes mellitus complication status: with hyperglycemia Qualified Code(s): E11.65 - Type 2 diabetes mellitus with hyperglycemia; Z79.4 - prison (current) use of insulin (8) Hyperlipidemia Qualifiers: Hyperlipidemia type: pure hypercholesterolemia Qualified Code(s): E78.00 - Pure hypercholesterolemia, unspecified; E78.0 - Pure hypercholesterolemia (9) Depression Qualifiers: Depression Type: major depressive disorder Active/Remission status: currently active Major depression episode severity: unspecified
[2017-10-16] MEDS: Atenolol 25 MG Tablet PO SCH (09:44)
[2017-10-16] MEDS: buPROPion 75 MG Tablet PO SCH ×2 (09:45→20:58)
[2017-10-16] MEDS: Insulin Detemir Inj 1,000 UNIT/10 ML Vial SQ SCH ×2 (09:45→20:57)
[2017-10-16] MEDS: oxyCODONE/Acetaminophen 10/325 Tablet PO PRN ×3 (09:55→23:18)
--- NOTE | 2017-10-16 12:22 | P.PNID ---
Subjective Remarks: afebrile doing ok went for bx growing Enterococcus and GBS co some nausea aw ampicillin x 1 Antibiotics: ampicillin Allergies/Adverse Reactions: Allergies lisinopril Allergy (Intermediate, Verified 10/10/17 08:28) Cough phenytoin Allergy (Unknown, Verified 10/10/17 08:28) Hives pt states unknown Objective Vital Signs 10/15/17 16:41 10/15/17 20:00 10/15/17 21:00 Temperature 98.2 F 98.3 F Pulse Rate 78 82 84 Respiratory Rate 18 17 18 Blood Pressure 171/74 H 172/80 H Pulse Oximetry 96 99 99 10/15/17 23:59 10/16/17 00:00 10/16/17 04:00 Temperature 97.6 F 97.6 F Pulse Rate 89 87 67 Respiratory Rate 18 17 Blood Pressure 161/74 H 122/62 Pulse Oximetry 98 98 10/16/17 08:00 Temperature 97.8 F Pulse Rate 74 Respiratory Rate 18 Blood Pressure 140/68 Pulse Oximetry 97 Intake & Output 10/15/17 10/16/17 10/16/17 18:59 06:59 18:59 Intake Total 1020 / 1020 660 / 660 Output Total 1300 / 1300 Balance -280 / -280 660 / 660 Weight 71.2 kg Intake: IV 300 / 300 300 / 300 Ampicillin Inj 2,000 MG In NS 300 / 300 300 / 300 Inj 100 ML @ 400 mls/hr IV.SIG Q4H [facility] Rx#:[id number] Oral 720 / 720 360 / 360 Output: Urine 1300 / 1300 Other: # Voids 3 Date of Last Bowel Movement 10/14/17 10/14/17 # Bowel Movements 0 10/13/17 21:01 Wound - Heel Gram Stain - Final 10/13/17 21:01 Wound - Heel Wound Culture - Final No growth in 72 hours (aerobically and anaerobically ) 10/13/17 21:01 Wound - Heel Acid Fast Bacilli Smear - Final No acid fast bacilli seen 10/13/17 21:01 Wound - Heel Mycobacterial Culture - Pending 10/10/17 08:50 Blood - Peripheral Aerobic Blood Culture - Final No growth in 5 days 10/10/17 08:50 Blood - Peripheral Anaerobic Blood Culture - Final No growth in 5 days 10/10/17 08:50 Blood - Peripheral Aerobic Blood Culture - Final No growth in 5 days 10/10/17 08:50 Blood - Peripheral Anaerobic Blood Culture - Final No growth in 5 days 10/13/17 00:00 Wound - Heel Fungal Smear - Final No fungal elements seen 10/13/17 00:00 Wound - Heel Fungal Culture - Pending 10/10/17 09:17 Wound - Foot Gram Stain - Final 10/10/17 09:17 Wound - Foot Wound Culture - Final Enterococcus faecalis Group B beta Strep Lab - Hematology Results 10/16/17 06:51 WBC 5.7 RBC 4.55 Hgb 12.0 Hct 36.3 MCV 79.9 L MCH 26.3 L MCHC 32.9 RDW 15.0 Plt Count 321 MPV 8.6 Neut % (Auto) 36.2 Lymph % (Auto) 51.7 H [place] % (Auto) 9.2 H Eos % (Auto) 2.2 Baso % (Auto) 0.7 Neut # (Auto) 2.1 Lymph # (Auto) 3.0 [place] # (Auto) 0.5 Eos # (Auto) 0.1 Baso # (Auto) 0.0 WBC Differential . Differential Comment Auto diff final Lab - Chemistry Results 10/14/17 10/14/17 10/14/17 12:15 17:15 21:08 POC Glucose 379 H 441 H 355 H 10/15/17 10/15/17 10/15/17 07:55 11:48 16:44 POC Glucose 276 H 423 H 411 H 10/15/17 10/16/17 10/16/17 20:23 03:31 07:40 POC Glucose 336 H 357 H 201 H 10/16/17 12:03 POC Glucose 261 H Imaging: ITS Impressions Extremity Arterial Study 10/10/17 00:00 CONCLUSION: 1. Ankle-brachial index is approximately 1.1 on both the right and the left side. There is some blunting of the waveforms on the right. Venous Doppler Study 10/10/17 00:00 CONCLUSION: 1. The study is negative for bilateral lower extremity deep venous thrombosis. Chest X-Ray 10/11/17 00:00 CONCLUSION: No acute cardiopulmonary disease. Foot MRI 10/13/17 00:00 CONCLUSION: 1. Evidence of osteomyelitis of the third toe. There is either marked erosion or indication of the middle and distal phalanges. Severe bone marrow signal abnormality of the proximal phalanx diffusely indicating osteomyelitis. 2. Soft tissue edema and enhancement of the heel suggesting cellulitis. Minimal adjacent bone marrow signal abnormality of the plantar posterior aspect of the calcaneus indicating possible early osteomyelitis in this region. 3. Prominent arthrosis of the great toe metatarsophalangeal joint as well as the midfoot. Foot X-Ray 10/13/17 00:00 CONCLUSION: Status post amputation at the third digit. The patient is also status status post amputation at the distal first phalanx. Chronic remodeling at the first proximal phalanx and at the second middle phalanx. Physical Exam: GENERAL: NAD SKIN: Warm and dry. HEAD: Normocephalic. EYES: No scleral icterus. No injection or drainage. NECK: Supple, trachea midline. No JVD or lymphadenopathy. CARDIOVASCULAR: Regular rate and rhythm without murmurs, gallops, or rubs. RESPIRATORY: Breath sounds equal bilaterally. No accessory muscle use. GASTROINTESTINAL: Abdomen soft, non-tender, nondistended. MUSCULOSKELETAL: No cyanosis, or edema. dressing in place BACK: Nontender without obvious deformity. No CVA tenderness. Assessment and Plan - Plan DFI, 3rd toe osteo Lt foot - confirmed by path Enterococcus GBS Non healing part amputation Uncontrolled DM tobaccoism change broad spectrum abx to ampicillin consider vascular w/u, though pulse on L DP is palpable Needs at least 3 rd ray amputaion Anticipate 6 weeks IV abx - ampicillin on pump OPAT C PICC
--- NOTE | 2017-10-16 12:28 | P.DCO ---
Post Hospital Infusion Therapy Location of Infusion Therapy: Home Health Care IV Infusion Order Patient Weight: 71.2 kg - Diagnosis (1) Osteomyelitis Code(s): M86.9 - Osteomyelitis, unspecified - Administer Medication Ampicillin/Sulbactam Directions: q 6 hours Additional Dosing Instructions: 3 gm IV q 6 hrs Start Treatment: 10/16/17 Stop Treatment: 11/24/17 - Additional Information Venous Access: PICC Line Additional Instructions: [x] Peripheral flush and dressing changes per protocol [x] Implanted port and central fisher trawl line: * Implanted port: 10 ml Normal Saline followed by 5 ml Heparin 100 units/ml Heparin flush after each use and monthly to maintain. [] May leave port accessed during therapy. [] May leave peripheral site accessed for duration of therapy. [x] If patient has SOB or respiratory distress, check oxygen saturation. If less than 90% or clinical signs of respiratory distress, administer oxygen at 2 L/min. via nasal cannula and notify physician. [x] Anaphylaxis/Reaction orders: * Stop infusion. * Keep IV line open with saline flush. * Notify physician. * Monitor vital signs every 15 minutes until symptoms resolve. * Check Oxygen saturation; Oxygen at 2 L/min. via nasal cannula if less than 90% or clinical signs of respiratory distress. * Administer diphenhydramine (Benadryl) 25 mg IV STAT, (unless patient has received as pre-med). May repeat once, if necessary. * Solu-Cortef 250 mg IVP over 30-60 seconds, use 100 mg vials for each dissolution. * Epinephrine (1mg/1 ml) 0.3 mg subcutaneously or IVP now with any signs of respiratory distress. * Check with physician for new additional pre-med orders if patient is re- challenged or re-treated. [x] May remove PICC line when treatment complete, after confirming with Physician. [x] If the patient is admitted to the hospital, the ED, or transferred via [facility] , complete transfer form including medication reconciliation order sheet. Weekly Labs: CBC w/diff, CMP Case Management Consult: Yes Allergies lisinopril Allergy (Intermediate, Verified 10/10/17 08:28) Cough phenytoin Allergy (Unknown, Verified 10/10/17 08:28) Hives pt states unknown
--- NOTE | 2017-10-16 14:57 | P.PNADD ---
Addendum to Inpatient Note Additional information: cultures showed >= 3 enteric GNBs along with enterococcus and GBS will change ampicillin to Unasyn dw primary team OK to dc after arranged for home IV
[2017-10-16] MEDS: Ampicillin/Sulbactam Inj 3 GM in Sodium Chloride 0.9% Inj 100 ML IV.SIG SCH ×2 (17:12→20:59)
[2017-10-16] MEDS ORDERED: Fluconazole 100 MG Tablet PO ONE (18:01)
--- NOTE | 2017-10-16 18:19 | P.PNPOD ---
Subjective Interval history: s/p left 3rd toe amputation and Left calcaneus bone biopsy, Dr Gracia Physical Exam Vital signs: Vital Signs 10/15/17 20:00 10/15/17 21:00 10/15/17 23:59 Temperature 98.3 F Pulse Rate 82 84 89 Respiratory Rate 17 18 Blood Pressure 172/80 H Pulse Oximetry 99 99 10/16/17 00:00 10/16/17 04:00 10/16/17 08:00 Temperature 97.6 F 97.6 F 97.8 F Pulse Rate 87 67 66 Respiratory Rate 18 17 18 Blood Pressure 161/74 H 122/62 140/68 Pulse Oximetry 98 98 97 10/16/17 12:00 10/16/17 12:03 10/16/17 16:00 Temperature 97.9 F Pulse Rate 76 74 82 Respiratory Rate 18 Blood Pressure 120/59 L Pulse Oximetry 97 Intake & Output 10/15/17 10/16/17 10/16/17 18:59 06:59 18:59 Intake Total 1020 / 1020 660 / 660 100 / 100 Output Total 1300 / 1300 Balance -280 / -280 660 / 660 100 / 100 Weight 71.2 kg 71.2 kg Intake: IV 300 / 300 300 / 300 100 / 100 Ampicillin Inj 2,000 MG In NS 300 / 300 300 / 300 100 / 100 Inj 100 ML @ 400 mls/hr IV.SIG Q4H [facility] Rx#:[id number] Oral 720 / 720 360 / 360 Output: Urine 1300 / 1300 Other: # Voids 3 Date of Last Bowel Movement 10/14/17 10/14/17 # Bowel Movements 0 Medications and Allergies Active Medications: Active Medications Acetaminophen (Tylenol) 650 mg PO Q6HR PRN PRN Reason: PAIN SCALE 1 TO 2 Al Hydroxide/Mg Hydroxide (Milk Of Magnesia Liq) 30 ml PO Q12H PRN PRN Reason: Mild Constipation Albuterol (Albuterol Neb (Prn)) 2.5 mg NEB Q2HR NEB PRN PRN Reason: SHORTNESS OF BREATH Last Admin: 10/15/17 21:02 Dose: 2.5 mg Atenolol (Tenormin) 25 mg PO DAILY [facility] Last Admin: 10/16/17 09:44 Dose: 25 mg Atorvastatin Calcium (Lipitor) 10 mg PO DAILY [facility] Last Admin: 10/16/17 09:44 Dose: 10 mg Bisacodyl (Dulcolax Supp) 10 mg RECTAL DAILY PRN PRN Reason: SEVERE CONSITIPATION Bupropion HCl (Wellbutrin) 75 mg PO BID [facility] Last Admin: 10/16/17 09:45 Dose: 75 mg Chlorhexidine Gluconate (Chlorhexidine 2% Cloth) 3 pack TOPICAL PUBLICITY AGENT [facility] Stop: 10/16/17 20:11 Clonidine HCl (Catapres) 0.1 mg PO Q6H PRN PRN Reason: SEE LABEL COMMENTS Dextrose (D50w Vial) 50 ml IV.PUSH UNSCH PRN PRN Reason: PER HYPOGLYCEMIA PROTOCOL Dextrose (D50w Vial) 50 ml IV.PUSH UNSCH PRN PRN Reason: PER HYPOGLYCEMIA PROTOCOL Duloxetine HCl (Cymbalta) 20 mg PO BID [facility] Last Admin: 10/16/17 09:45 Dose: 20 mg Fluconazole (Diflucan) 150 mg PO ONCE ONE Stop: 10/16/17 18:02 Glucagon (Glucagon Inj) 1 mg OTHER PRN PRN PRN Reason: for Hypoglycemia Protocol Hydroxyzine Pamoate (Vistaril) 150 mg PO HS [facility] Last Admin: 10/15/17 20:42 Dose: 150 mg Sodium Chloride (Ns Inj) 500 mls @ 30 mls/hr IV.SIG .Q10H [facility] Stop: 10/16/17 20:11 Lactated Ringer's (Lr 1000 Ml Inj) 1,000 mls @ 30 mls/hr IV.SIG .Q24H [facility] Stop: 10/16/17 20:11 Last Admin: 10/15/17 23:50 Dose: Not Given Ampicillin Sodium/Sulbactam (Sodium 3 gm/ Sodium Chloride) 100 mls @ 200 mls/ hr IV.SIG Q6H [facility] Last Admin: 10/16/17 17:12 Dose: 200 mls/hr Sodium Phosphate 15 mmol/ (Sodium Chloride) 105 mls @ 25 mls/hr IV.SIG UNSCH PRN PRN Reason: for Phosphate Level < 1.0 Insulin Aspart (Novolog Inj) 5 units SQ TIDAC [facility] Last Admin: 10/16/17 13:39 Dose: 5 units Insulin Aspart (Novolog Insulin Correctional Sugar Inj) 0 unit SQ ACHS AND 3AM [facility]; Protocol Last Admin: 10/16/17 13:39 Dose: 5 unit Insulin Detemir (Levemir Inj) 24 unit SQ BID [facility] Metoprolol Tartrate (Lopressor) 25 mg PO [employer] [facility] Stop: 10/16/17 20:11 Naloxone HCl (Narcan Inj) 0.4 mg IV.PUSH UNSCH PRN PRN Reason: SEE LABEL COMMENTS Nicotine (Habitrol 14 Mg Patch.24 Hr) 1 patch T-DERMAL DAILY [facility] Last Admin: 10/16/17 09:45 Dose: 1 patch Ondansetron HCl (Zofran Odt) 4 mg PO Q6H PRN PRN Reason: NAUSEA OR VOMITING Last Admin: 10/16/17 00:56 Dose: 4 mg Oxycodone/Acetaminophen (Percocet 10/325 Mg) 1 tab PO Q6H PRN PRN Reason: PAIN SCALE 6 TO 10 Last Admin: 10/16/17 17:12 Dose: 1 tab Oxycodone/Acetaminophen (Percocet 5/325 Mg) 1 tab PO Q6H PRN PRN Reason: PAIN SCALE 3 TO 5 Povidone Iodine (Betadine 5% Antisepsis Kit) 1 applicatio EACH NARE PUBLICITY AGENT [facility] Stop: 10/16/17 20:11 Pregabalin (Lyrica) 100 mg PO BID [facility] Last Admin: 10/16/17 09:44 Dose: 100 mg Senna/Docusate Sodium (Sophy-Colace) 1 tab PO BID [facility] Last Admin: 10/15/17 20:42 Dose: 1 tab Sennosides (Senokot) 17.2 mg PO Q12H PRN PRN Reason: Moderate Constipation Sodium Bicarbonate (Sodium Bicarbonate 8.4% Inj) 50 meq IV.PUSH UNSCH PRN PRN Reason: for pH 6.9 to 7.0 Sodium Bicarbonate (Sodium Bicarbonate 8.4% Inj) 100 meq IV.PUSH UNSCH PRN PRN Reason: for pH less than 6.9 Allergies Allergy/AdvReac Type Severity Reaction Status Date / Time lisinopril Allergy Intermediate Cough Verified 10/10/17 08:28 phenytoin Allergy Unknown Hives Verified 10/10/17 08:28 Home Medications Medication Instructions Recorded Confirmed Type atenolol 25 mg PO DAILY 10/10/17 10/10/17 History atorvastatin 10 mg PO DAILY 10/10/17 10/10/17 History duloxetine [Cymbalta] 20 mg PO BID 10/10/17 10/10/17 History hydroxyzine pamoate 150 mg PO HS 10/10/17 10/10/17 History insulin glargine [Toujeo SoloStar 35 unit SUB-Q BID 10/10/17 10/10/17 History U-300 Insulin] insulin lispro [Humalog U-100 1 sliding scale dose SUB-Q UD 10/10/17 10/10/17 History Insulin] insulin lispro [Humalog U-100 10 unit SUB-Q TID 10/10/17 10/10/17 History Insulin] oxycodone-acetaminophen [Percocet] 1 tab PO Q4-6H PRN 10/10/17 10/10/17 History pregabalin [Lyrica] 100 mg PO BID 10/10/17 10/10/17 History Results - Labs CBC & Chem 7: 10/16/17 06:51 10/14/17 09:28 Laboratory Results - last 24 hr 10/15/17 10/15/17 10/16/17 19:00 20:23 03:31 WBC RBC Hgb Hct MCV MCH MCHC RDW Plt Count MPV Neut % (Auto) Lymph % (Auto) Cecil % (Auto) Eos % (Auto) Baso % (Auto) Neut # (Auto) Lymph # (Auto) Cecil # (Auto) Eos # (Auto) Baso # (Auto) WBC Differential Differential Comment POC Glucose 336 H 357 H Urine Opiates Screen Neg Ur Barbiturates Screen Neg Ur Amphetamines Screen Neg U Benzodiazepines Scrn Neg Urine Cocaine Screen Neg U Cannabinoids Screen Neg 10/16/17 10/16/17 10/16/17 06:51 07:40 12:03 WBC 5.7 RBC 4.55 Hgb 12.0 Hct 36.3 MCV 79.9 L MCH 26.3 L MCHC 32.9 RDW 15.0 Plt Count 321 MPV 8.6 Neut % (Auto) 36.2 Lymph % (Auto) 51.7 H Cecil % (Auto) 9.2 H Eos % (Auto) 2.2 Baso % (Auto) 0.7 Neut # (Auto) 2.1 Lymph # (Auto) 3.0 Cecil # (Auto) 0.5 Eos # (Auto) 0.1 Baso # (Auto) 0.0 WBC Differential . Differential Comment Auto diff final POC Glucose 201 H 261 H Urine Opiates Screen Ur Barbiturates Screen Ur Amphetamines Screen U Benzodiazepines Scrn Urine Cocaine Screen U Cannabinoids Screen 10/16/17 17:20 WBC RBC Hgb Hct MCV MCH MCHC RDW Plt Count MPV Neut % (Auto) Lymph % (Auto) Cecil % (Auto) Eos % (Auto) Baso % (Auto) Neut # (Auto) Lymph # (Auto) Cecil # (Auto) Eos # (Auto) Baso # (Auto) WBC Differential Differential Comment POC Glucose 349 H Urine Opiates Screen Ur Barbiturates Screen Ur Amphetamines Screen U Benzodiazepines Scrn Urine Cocaine Screen U Cannabinoids Screen Microbiology 10/13/17 21:01 Wound - Heel Gram Stain - Final 10/13/17 21:01 Wound - Heel Wound Culture - Final No growth in 72 hours (aerobically and anaerobically ) 10/13/17 21:01 Wound - Heel Acid Fast Bacilli Smear - Final No acid fast bacilli seen Assessment and Plan - Assessment (1) Toe infection Code(s): L08.9 - Local infection of the skin and subcutaneous tissue, unspecified Status: Acute (2) Osteomyelitis Code(s): M86.9 - Osteomyelitis, unspecified Status: Acute Plan: Bone biopsy report reviewed and negative for osteomyelitis to calcaneus. Ok with d/c to rehab. Follow up with Dr Gracia in 1-2 weeks upon discharge to assess for suture removal.
[2017-10-16] MEDS: Senna/Docusate Sodium 8.6/50 MG Tablet PO SCH ×2 (18:56→20:58)
[2017-10-17] MEDS: Insulin NovoLOG Aspart Correctional Sugar Inj SQ SCH ×3 (02:17→15:33)
[2017-10-17] MEDS: Ampicillin/Sulbactam Inj 3 GM in Sodium Chloride 0.9% Inj 100 ML IV.SIG SCH ×3 (03:37→15:33)
[2017-10-17 07:55] LABS: Baso # (Auto) 0.1 th/mm3 (0.0-0.2); Baso % (Auto) 1.2 % (0.0-2.0); Eos # (Auto) 0.1 th/mm3 (0.0-0.4); Eos % (Auto) 2.4 % (0.0-4.0); Hematocrit 37.5 % (35.0-46.0); Hemoglobin 12.2 gm/dL (11.6-15.3); Lymph # (Auto) 2.7 th/mm3 (1.0-4.8); Lymph % (Auto) 48.6 % (9.0-44.0); Mean Corpuscular HGB Conc 32.4 % (32.0-36.0); Mean Corpuscular Hemoglobin 25.9 pg (27.0-34.0); Mean Corpuscular Volume 79.8 fL (80.0-100.0); Mean Platelet Volume 8.6 fL (7.0-11.0); Mono # (Auto) 0.4 th/mm3 (0.0-0.9); Mono % (Auto) 7.5 % (0.0-8.0); Neut # (Auto) 2.3 th/mm3 (1.8-7.7); Neut % (Auto) 40.3 % (16.0-70.0); Platelet Count 328 th/mm3 (150-450); Red Cell Distribution Width 15.2 % (11.6-17.2); White Blood Count 5.6 th/mm3 (4.0-11.0)
[2017-10-17] MEDS: buPROPion 75 MG Tablet PO SCH (09:08)
[2017-10-17] MEDS: Atenolol 25 MG Tablet PO SCH (09:08)
[2017-10-17] MEDS: Senna/Docusate Sodium 8.6/50 MG Tablet PO SCH (09:09)
[2017-10-17] MEDS ORDERED: Heparin Central Flush 100 UNIT/ML 5 ML Vial IV.FLUSH PRN (09:24)
[2017-10-17] MEDS ORDERED: Heparin Central Flush 100 UNIT/ML 5 ML Vial IV.FLUSH SCH (09:30)
--- NOTE | 2017-10-17 09:31 | P.PNFP ---
Subjective Interval history: Patient reports doing well. She had a PICC line inserted this morning. She denies any chest pain. She reports some shortness of breath , which is improved with breathing treatments. She reports eating well, going to the bathroom well, hopping with her walker to get to the bathroom. She reports her pain is well controlled. Discussed plan of care, including getting patient to SNF for IV antibiotics per ID. <MushtaqLazarus - 10/17/17 09:31> Results - Labs Result diagrams: 10/17/17 07:23 10/14/17 09:28 <Yohannes Bobby - 10/18/17 12:33> Abnormal lab results 10/17/17 Range/Units 13:13 POC Glucose 227 H (68-110) mg/dl <Yohannes Bobby - 10/18/17 12:33> Abnormal lab results 10/16/17 10/16/17 10/16/17 Range/Units 12:03 17:20 20:51 MCV (80.0-100.0) fL MCH (27.0-34.0) pg Lymph % (Auto) (9.0-44.0) % POC Glucose 261 H 349 H 359 H (68-110) mg/dl 10/17/17 10/17/17 10/17/17 Range/Units 02:09 07:23 09:07 MCV 79.8 L (80.0-100.0) fL MCH 25.9 L (27.0-34.0) pg Lymph % (Auto) 48.6 H (9.0-44.0) % POC Glucose 293 H 226 H (68-110) mg/dl Short CBC 10/17/17 Range/Units 07:23 WBC 5.6 (4.0-11.0) th/mm3 Hgb 12.2 (11.6-15.3) gm/dL Hct 37.5 (35.0-46.0) % Plt Count 328 (150-450) th/mm3 <Krunal Landin - 10/17/17 09:31> Physical Exam Vital signs: Vital Signs 10/17/17 16:00 Temperature 97.5 F L Pulse Rate 70 Respiratory Rate 18 Blood Pressure 124/66 Pulse Oximetry 98 Intake & Output 07/28/18 07/29/18 07/29/18 18:59 06:59 18:59 Intake Total 100 / 100 Balance 100 / 100 Intake: IV 100 / 100 Unasyn Inj 3 GM In NS Inj 100 100 / 100 ML @ 200 mls/hr IV.SIG Q6H [facility] Rx#:[id number] <Yohannes Bobby - 10/18/17 12:33> Vital Signs 10/16/17 12:00 10/16/17 12:03 10/16/17 16:00 Temperature 97.9 F 98.4 F Pulse Rate 76 74 74 Respiratory Rate 18 18 Blood Pressure 120/59 L 157/72 H Pulse Oximetry 97 94 L 10/16/17 20:00 10/17/17 00:00 10/17/17 04:00 Temperature 97.9 F 98.0 F 98.1 F Pulse Rate 77 74 69 Respiratory Rate 14 14 14 Blood Pressure 164/77 H 140/70 130/71 Pulse Oximetry 96 95 95 Intake & Output 10/16/17 10/17/17 10/17/17 18:59 06:59 18:59 Intake Total 920 / 920 100 / 100 Balance 920 / 920 100 / 100 Weight 71.2 kg 71.5 kg Intake: IV 200 / 200 100 / 100 Ampicillin Inj 2,000 MG In NS 100 / 100 Inj 100 ML @ 400 mls/hr IV.SIG Q4H [facility] Rx#:[id number] Unasyn Inj 3 GM In NS Inj 100 100 / 100 100 / 100 ML @ 200 mls/hr IV.SIG Q6H [facility] Rx#:[id number] Oral 720 / 720 Other: Post Void Residual 200 # Voids 4 2 Date of Last Bowel Movement 10/14/17 10/16/17 # Bowel Movements 2 <MushtaqKrunal mcguire A - 10/17/17 09:31> Narrative: GENERAL: NAD, lying comfortably in bed NEURO: Alert. 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 surg rn grossly intact. HEAD: Normocephalic. Atraumatic. EYES: EOMI. No injection or drainage. ENT: No nasal drainage. Moist mucous membranes. NECK: Supple, trachea midline. No JVD. CARDIOVASCULAR: Regular rate and rhythm without murmurs, rubs, or gallops. Peripheral pulses 2+. RESPIRATORY: Breath sounds clear to auscultation and equal bilaterally, without wheezes, rales, or rhonchi. No accessory muscle use. GASTROINTESTINAL: Abdomen soft, nontender, nondistended MUSCULOSKELETAL: Strength grossly WNL. PT pulses 2+ bilaterally. No lesions appreciated on the right foot. Bilateral feet are warm with intact pulses. Adequate range of motion of remaining toes bilaterally. Left foot is covered with dressing that is clean, dry, intact. Patient reports lack of sensation in her feet bilaterally from her ankles down. Sensation intact above ankles bilaterally. BACK: Nontender without obvious deformity. <Krunal Landin A - 10/17/17 09:31> Assessment and Plan - Assessment (1) Toe infection Code(s): L08.9 - Local infection of the skin and subcutaneous tissue, unspecified Status: Acute Plan: Hospital course: X-ray of the left foot with soft tissue swelling without acute bony abnormalities MRI showing osteomyelitis of the left third toe, with changes indicating possible early osteomyelitis of the left heel s/p debridement and heel bone biopsy by podiatry on 10/13 Podiatry consulted, appreciate recommendations ID consulted, transitioned to Unasyn IV, anticipate discharge to SNF on Unasyn through PICC line with plan pending bone biopsy results ABIs bilaterally within normal limits P.o. Tylenol, Percocet prn pain Previous history: Status post partial amputation of the left third toe 3 weeks ago with poor follow-up Purulent discharge and malodorous on presentation No leukocytosis, patient was tachycardic on admission with a heart rate of 115 Blood cultures from 10/10 no growth final Wound cultures with heavy growth group b strep and enterococcus faecalis Patient was started on vancomycin, Zosyn in the ED, discontinued 10/15 per ID and patient started on ampicillin, tthen Unasyn Lactic acid 1.7 on admission (2) Hyperglycemia without ketosis Code(s): R73.9 - Hyperglycemia, unspecified Status: Resolved Plan: Suspecting HHS as opposed to DKA Accu-Cheks per protocol Will titrate up on basal insulin levemir and scheduled aspart TIDAC Continue low dose insulin sliding scale Potassium supplementation per protocol Previous history: Patient found to have elevated blood glucose of 714 on admission. Anion gap of 14 Received 10 units IV insulin, 10 units SQ insulin in the ED UA with 20 ketones, 500 or greater urine glucose ABG negative for acidosis EKG on admission normal Initially plan for insulin drip, but after insulin in the ED and 2 L normal saline bolus in the ED the patient's glucose dropped to 266 (3) Nausea & vomiting Code(s): R11.2 - Nausea with vomiting, unspecified Status: Resolved Plan: Patient with 4-5 day history of nausea and vomiting prior to admission No significant electrolyte abnormalities aside from the pseudohyponatremia Continue with IV Zofran as needed IV fluids as above (4) Hepatitis C Code(s): B19.20 - Unspecified viral hepatitis C without hepatic coma Status: Chronic Plan: Reported history of hepatitis C Patient with hepatomegaly and right upper quadrant tenderness Total bilirubin 0.6, LFTs within normal limits She will need to have a stable life and establish with a physician long-term in order to get her p.o. treatment for hepatitis C. (5) COPD (chronic obstructive pulmonary disease) Code(s): J44.9 - Chronic obstructive pulmonary disease, unspecified Status: Chronic Plan: Known history of COPD Expiratory wheezes on admission Ordering scheduled duo nebs with albuterol nebulizers as needed Chest x-ray with minimal basilar density which could be atelectasis or minimal infiltrate. Currently being treated with Unasyn, will continue to monitor (6) Substance abuse Code(s): F19.10 - Other psychoactive substance abuse, uncomplicated Status: Chronic Plan: Reported history of crack cocaine use most recently 2 days prior to admission Endorsed daily use of cocaine prior to admission. Discussed with patient 10/12; she does express desire to quit. UDS positive for cocaine Denies h/o etoh abuse +cigarette smoking history Consult case management for drug rehab program post-discharge (7) Diabetes Code(s): E11.9 - Type 2 diabetes mellitus without complications Status: Chronic Plan: Known history of insulin-dependent type 2 diabetes Controlled at home on Toujeo and Humalog injections Takes Lyrica 100 mg twice daily for peripheral neuropathy Continue insulin regimen as above On a low-dose sliding scale for now See hyperglycemia workup and management as above Holding home medications (8) Hyperlipidemia Code(s): E78.5 - Hyperlipidemia, unspecified Status: Chronic Plan: Known history of hyperlipidemia treated with atorvastatin 10 mg daily Holding home p.o. medications for now (9) Depression Code(s): F32.9 - Major depressive disorder, single episode, unspecified Status : Chronic Plan: Continue home PO medications Cymbalta as well as bupropion 75 mg bid (10) Elevated blood pressure reading Code(s): R03.0 - Elevated blood-pressure reading, without diagnosis of hypertension Status: Resolved Plan: Patient with no reported history of hypertension, she takes p.o. atenolol 25 mg at home for which she states is for tachycardia Anticipate need to initiate an antihypertensive Will continue p.o. atenolol 25 mg daily at this time 0.1 mg clonidine p.o. every 6 hours as needed for blood pressures over 170/100 (11) Hyponatremia Code(s): E87.1 - Hypo-osmolality and hyponatremia Status: Resolved Plan: Patient with a sodium of 122 on admission, now improved Corrected sodium of 137, showing a pseudohyponatremia due to hyperglycemia <Krunal Landin - 10/17/17 09:21> - Assessment and Plan 57-year-old female with history of insulin-dependent type 2 diabetes, COPD, depression, history of DVT in L arm, hepatitis C, and HLD admitted for management of a wound infection following partial amputation of the left third toe. Also found to be hyperglycemic without ketosis. Podiatry consulted. s/p debridement and heel bone biopsy on 10/13. Infectious disease consulted for long- term antibiotic therapy requirements for 6 weeks, anticipating Unasyn IV through PICC line on discharge to SNF. <Krunal Landin - 10/17/17 09:31> - Attending Attestation See the residents documentation for details. I saw and evaluated the patient regarding the lucas portions of this evaluation and agree with the residents findings and plans as written. Parts of this note were created using [employer] voice recognition software program. While efforts were made to correct any mistakes made by this software, some mistakes, errors, and omissions may remain in the final note that were not caught when the note was originally created. Plan of care was discussed and agreed upon with the patient as specifically documented in the above note. An opportunity to ask questions with explanation was provided. Patient voiced understanding on all information reviewed and discussed. <Yohannes Bobby - 10/18/17 12:33> <Krunal Landin - Last Filed: 10/17/17 09:21> (3) Nausea & vomiting Qualifiers: Vomiting type: unspecified Vomiting Intractability: non-intractable Qualified Code(s): R11.2 - Nausea with vomiting, unspecified (4) Hepatitis C Qualifiers: Viral hepatitis chronicity: chronic Hepatic coma status: without hepatic coma Qualified Code(s): B18.2 - Chronic viral hepatitis C (7) Diabetes Qualifiers: Diabetes mellitus type: type 2 Diabetes mellitus snf insulin use: with exterminator termite use Diabetes mellitus complication status: with hyperglycemia Qualified Code(s): E11.65 - Type 2 diabetes mellitus with hyperglycemia; Z79.4 - skilled nursing (current) use of insulin (8) Hyperlipidemia Qualifiers: Hyperlipidemia type: pure hypercholesterolemia Qualified Code(s): E78.00 - Pure hypercholesterolemia, unspecified; E78.0 - Pure hypercholesterolemia (9) Depression Qualifiers: Depression Type: major depressive disorder Active/Remission status: currently active Major depression episode severity: unspecified <Krunal Landin - Last Filed: 10/17/17 09:21> (3) Nausea & vomiting Qualifiers: Vomiting type: unspecified Vomiting Intractability: non-intractable Qualified Code(s): R11.2 - Nausea with vomiting, unspecified (4) Hepatitis C Qualifiers: Viral hepatitis chronicity: chronic Hepatic coma status: without hepatic coma Qualified Code(s): B18.2 - Chronic viral hepatitis C (7) Diabetes Qualifiers: Diabetes mellitus type: type 2 Diabetes mellitus exterminator termite insulin use: with exterminator termite use Diabetes mellitus complication status: with hyperglycemia Qualified Code(s): E11.65 - Type 2 diabetes mellitus with hyperglycemia; Z79.4 - manager intermediate (current) use of insulin (8) Hyperlipidemia Qualifiers: Hyperlipidemia type: pure hypercholesterolemia Qualified Code(s): E78.00 - Pure hypercholesterolemia, unspecified; E78.0 - Pure hypercholesterolemia (9) Depression Qualifiers: Depression Type: major depressive disorder Active/Remission status: currently active Major depression episode severity: unspecified
[2017-10-17] MEDS: oxyCODONE/Acetaminophen 10/325 Tablet PO PRN ×2 (09:40→15:35)
[2017-10-17] MEDS: Insulin Detemir Inj 1,000 UNIT/10 ML Vial SQ SCH (09:48)
--- NOTE | 2017-10-19 09:29 | P.DS ---
Date of admission: 10/10/17 10:53 Primary care physician: UNKNOWN Brief History from admission: Per Admission H&P documentation: 57-year-old female with history of type 2 diabetes, COPD, depression, history of DVT in L arm, hepatitis C, and HLD presenting to the emergency room with a left foot wound infection. 3 weeks prior to presentation, patient had a partial amputation of the left third toe performed at [facility]. She states that she was unable to follow-up with a inventory worker following hospital discharge due to insurance complications. Patient was seen by her PCP 2 days prior to presentation was told to come to the ED at that time, the patient stated that she needed to have her dog taking care of prior to coming here. She states that for the last 4-5 days she has had nausea and vomiting, chills, leg cramps, decreased appetite, increased thirst and increased urinary frequency. The surgical site on the left foot has had purulent drainage and swelling. She states she has also felt more confused and has had blurry vision. Denies any falls, headache, measured fevers, dysuria, malodorous urine, blood in her vomit, or diarrhea. She explained that she had become homeless on the of this month. She was sleeping in her car and had her insulin and other medications in her automobile. Insulin does not do well at high temperatures and needs to be refrigerated so she feels that her insulin stopped working. She started to feel more ill was somewhat delirious and cannot remember everything that happened before she got to the hospital and does not even remember the doctors who admitted her. However today after fluids and antibiotics she is feeling much improved. She states that she will be scheduled for an amputation of her toe on Thursday. Otherwise her main complaints were that she wanted a regular diabetic diet as she is hungry and feels better. She also feels depressed and wants to go back on her regular home medications. These were held as she was delirious and had a hyperosmolar state when she first came to the ED by she improved probably much nearer her baseline today DS: Diagnosis - Discharge Diagnosis (1) Toe infection Status: Acute (2) Hyperglycemia without ketosis Status: Resolved (3) Nausea & vomiting Status: Resolved (4) Hepatitis C Status: Chronic (5) COPD (chronic obstructive pulmonary disease) Status: Chronic (6) Substance abuse Status: Chronic (7) Diabetes Status: Chronic (8) Hyperlipidemia Status: Chronic (9) Depression Status: Chronic (10) Elevated blood pressure reading Status: Resolved (11) Hyponatremia Status: Resolved DS: Medications - Discharge Medications Prescriptions: oxycodone-acetaminophen 1 tab PO Q6H PRN #120 tab PRN Reason: Pain pregabalin [Lyrica] 100 mg PO BID 15 Days #30 cap DS: Summary Hospital Course: The patient was started on IV vancomycin and IV Zosyn for broad spectrum coverage of her left third toe osteomyelitis. Podiatry was consulted. The patient's blood sugars on admission were noted to rapidly decrease after receiving 10 units of IV insulin and 10 units of subcu insulin in the ED. Patient was determined to likely have HHS as opposed to DKA given having no acidosis or anion gap. Patient was taken to the OR by podiatry on 10/13 for left third toe amputation and calcaneal bone biopsy as her foot MRI showed possible early changes of osteomyelitis of her left calcaneus. Infectious disease was consulted for recommendations regarding long-term antibiotics. The patient was started on IV ampicillin q4h per infectious disease, and later transitioned to IV Unasyn after wound culture was growing heavy growth of >3 mixed enteric gram-negative rods. PT evaluated the patient recommending PT at rehab. Orders were placed for the patient to have placement of a PICC line. The patient had an echocardiogram that showed a normal EF and no evidence for vegetation would indicate endocarditis. Blood cultures were negative after 5 days. The patient remained afebrile with pain well-controlled prior to discharge. She was titrated up on her basal and prandial insulins for better control of her blood sugars throughout her hospitalization. She was discharged to a SNF for continued IV antibiotics through her PICC line and rehabilitation. - Time Spent with Patient Total time spent providing and/or coordinating discharge services: - Quality: VTE Deep Vein Thrombosis/Pulmonary Embolism Present on Admission: No Exam Narrative: GENERAL: NAD, lying comfortably in bed NEURO: Alert. 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 HEAD: Normocephalic. Atraumatic. EYES: EOMI. No injection or drainage. ENT: No nasal drainage. Moist mucous membranes. NECK: Supple, trachea midline. No JVD. CARDIOVASCULAR: Regular rate and rhythm without murmurs, rubs, or gallops. Peripheral pulses 2+. RESPIRATORY: Breath sounds clear to auscultation and equal bilaterally, without wheezes, rales, or rhonchi. No accessory muscle use. GASTROINTESTINAL: Abdomen soft, nontender, nondistended MUSCULOSKELETAL: Strength grossly WNL. PT pulses 2+ bilaterally. No lesions appreciated on the right foot. Bilateral feet are warm with intact pulses. Adequate range of motion of remaining toes bilaterally. Left foot is covered with dressing that is clean, dry, intact. Patient reports lack of sensation in her feet bilaterally from her ankles down. Sensation intact above ankles bilaterally. BACK: Nontender without obvious deformity. Results Procedures completed during hospitalization: left 3rd toe amputation and Left calcaneus bone biopsy, by Dr Gracia, Podiatry 2D echocardiogram Completed studies during hospitalization: Pending at discharge 10/13/17 08:11 Surgical [PTH] Routine - Impressions ITS Impressions Extremity Arterial Study 10/10/17 00:00 CONCLUSION: 1. Ankle-brachial index is approximately 1.1 on both the right and the left side. There is some blunting of the waveforms on the right. Venous Doppler Study 10/10/17 00:00 CONCLUSION: 1. The study is negative for bilateral lower extremity deep venous thrombosis. Chest X-Ray 10/11/17 00:00 CONCLUSION: No acute cardiopulmonary disease. Foot MRI 10/13/17 00:00 CONCLUSION: 1. Evidence of osteomyelitis of the third toe. There is either marked erosion or indication of the middle and distal phalanges. Severe bone marrow signal abnormality of the proximal phalanx diffusely indicating osteomyelitis. 2. Soft tissue edema and enhancement of the heel suggesting cellulitis. Minimal adjacent bone marrow signal abnormality of the plantar posterior aspect of the calcaneus indicating possible early osteomyelitis in this region. 3. Prominent arthrosis of the great toe metatarsophalangeal joint as well as the midfoot. Foot X-Ray 10/13/17 00:00 CONCLUSION: Status post amputation at the third digit. The patient is also status status post amputation at the distal first phalanx. Chronic remodeling at the first proximal phalanx and at the second middle phalanx. Discharge Plan - Discharge Disposition Patient Disposition: Discharge to SNF - Discharge Condition Condition: Stable - Discharge Order Discharge Orders: Discharge Order (Routine); Ordered 10/17/17 Ordered By: Krunal Parikh - Discharge Details Anticipated Discharge Date: 10/16/17 - Physicians Team Primary Care Provider: UNKNOWN, Attending Provider: Yohannes Bobby Other Providers: Tisha Hoskins DPM ; [facility] ; Brynn Kendrick MD
--- NOTE | 2017-10-22 11:39 | MP ---
cc: Quynh Gracia DPM DATE OF OPERATION: 10/13/2017 SURGEON: Dr. Quynh Gracia MD CHERRY PITTER: None. PREOPERATIVE DIAGNOSES: 1. Left foot 3rd digit osteomyelitis. 2. Left foot calcaneus osteomyelitis. POSTOPERATIVE DIAGNOSES: 1. Left foot 3rd digit osteomyelitis. 2. Left foot calcaneus osteomyelitis. PROCEDURES PERFORMED: 1. Left foot 3rd digit amputation. 2. Left foot calcaneus bone biopsy. PATHOLOGY SENT: Third digit sent to pathology. Bone biopsy portion sent to pathology and to microbiology. INJECTABLES: None. ANESTHESIA: General. HEMOSTASIS: Pneumatic ankle tourniquet at 250 mmHg. ESTIMATED BLOOD LOSS: Less than 5 mL. MATERIALS USED: 3-0 Ethibond. COMPLICATIONS: None. INDICATIONS: Ms. Palma is a 57-year-old female patient with well-known osteomyelitis of the left 3rd digit and questionable osteomyelitis of the left calcaneus with a prolonged heel wound, and an inconclusive MRI. The decision was made to amputate the 3rd toe, as there were no salvageable options and to biopsy the calcaneus to treat appropriately. The consent was signed. The procedure was explained. No guarantees were given. PROCEDURE IN DETAIL: Under mild sedation, the patient was brought into the operating room, placed on the operating table in a supine position. Following IV sedation, pneumatic ankle tourniquet was placed around the left ankle. The foot was then scrubbed, prepped, and draped in the usual aseptic manner. Attention was directed to the lateral aspect of the left heel, where a small wound was noted. Just proximal to that wound site, a small stab incision was created through the skin and deepened to the level of bone using a hemostat. A Jamshidi needle was used to obtain a clean bone biopsy, a portion of which was sent to microbiology and a portion of which was sent to pathology. The area was then flushed with copious amounts of sterile saline and closed using 3-0 Ethibond. Attention was then directed to the 3rd digit, where there was exposed bone and known osteomyelitis. Two linear longitudinal elliptical incisions were created one medially and one laterally to the digit. They were deepened through skin and subcutaneous tissue with care being taken to identify and retract any vital neurovascular structures. The toe was then disarticulated at the MPJ, and removed from the field in toto, and sent to pathology for further evaluation. The tendons were resected away from the incision line. The area was flushed with copious amounts of sterile saline. The metatarsal head appeared intact and healthy. The incision line was then closed using 3-0 Ethibond with minimal skin tension noted during closure. The foot was then cleansed with saline and dressed with sterile Adaptic, 4 x 4s, cast padding, and a light Aurelio bandage. The patient tolerated the procedure and the anesthesia well. She will recover in the PACU for a period of time before being discharged home with written and oral postoperative instructions. JATINDER Pizano/will/tenisha , 10:34 AM , 10:41 AM
== END 2017-10-17 16:47 ==
LOC: NEPE 07:56 → NEDA 10:53 → N04 20:05
PROVIDERS: ADMIT Family Medicine; ATTEND Family Medicine